=== PATIENT | female | born 1950 | race Caucasian/White ===

== ENCOUNTER 2020-06-19 16:01 | Inpatient (IN) | payer MEDICARE, BC ==
[~2020-06-19] VITALS: Ht 165.1 cm; Wt 114.4 kg
[2020-06-19] MEDS ORDERED: Z GUARD REMEDY PASTE 57 GM TUBE TOP PRN (20:15)
[2020-06-19 22:00] VITALS: BP 143/61
--- NOTE | 2020-06-19 22:00 | NUR ---
received a 69 yr old female from [facility] with an admitting diagnosis of Acute CHF, UTI, Obstructive Sleep Apnea and hypovent syndrome, morbid obesity. AAO x4 On continous O2 @ 2L via nasal cannula, pulse ox 98%. Lungs CTA. Hx of COPD, rheumatoid arthritis, pulmonary hypertension. VSS. BP 143/61 HR 77 Resp 18 Temp 99F Needs attended. Incontinent of urine x2 Kept clean and dry. No BM noted this shift. Allergic to levaquin, levothyroxine. Dr Pena called and aware of admission, told him to reconcile meds. He said ok. Skin intact, sacral are blanchable. Bilateral legs dry with scab noted on the right ankle. Denies any pain nor any discomfort.Will monitor patient.
[2020-06-19] MEDS ORDERED: CELE200C PO (22:41)
[2020-06-19] MEDS ORDERED: OXYC-132 PO (22:41)
[2020-06-19] MEDS ORDERED: PRED2.5T PO (22:41)
[2020-06-19] MEDS ORDERED: FURO40TA5 PO (22:41)
[2020-06-19] MEDS ORDERED: POTA10CA43 PO (22:41)
[2020-06-19] MEDS ORDERED: ALBU18HF2 IH (22:41)
[2020-06-19] MEDS ORDERED: SULF1TAB47 PO (22:41)
[2020-06-19] MEDS ORDERED: BUME2TAB7 PO (22:41)
[2020-06-20] MEDS ORDERED: ALBUTEROL SULFATE 8 GM HFA.AER.AD IH PRN (02:00)
[2020-06-20 04:10] VITALS: BP 143/68
--- NOTE | 2020-06-20 06:41 | NUR ---
End of shift notes: Slept well throughout the night. On continous O2 @ 2L via nasal cannula. VSS.Needs attended. Incontinent of urine x2. Kept clean and dry. No BM noted this shift. Will monitor patient.
[2020-06-20 08:00] VITALS: BP 135/58
[2020-06-20] MEDS ORDERED: ALBUTEROL SULFATE INH PRN (08:30)
[2020-06-20] MEDS: OXYCODONE/APAP 5-325 MG TABLET PO PRN ×2 (08:35→21:19)
[2020-06-20] MEDS: CELECOXIB 200 MG CAPSULE PO SCH ×2 (08:36→16:36)
[2020-06-20] MEDS: SULFAMETH/TRIMETH 800/160 MG TABLET PO SCH ×2 (08:37→21:15)
[2020-06-20] MEDS: BUMETANIDE 1 MG TABLET PO SCH ×2 (08:37→16:36)
[2020-06-20] MEDS: POTASSIUM CHLORIDE 10 MEQ TAB.PRT.SR PO SCH (08:37)
[2020-06-20] MEDS ORDERED: predniSONE 2.5 MG TABLET PO SCH (09:00)
[2020-06-20 14:10] LABS: BASOPHILS # (AUTO) 0.1 K/uL (0.0-8.0); BASOPHILS % (AUTO) 0.7 % (0.0-2.0); EOSINOPHILS # (AUTO) 0.2 K/uL (0.0-0.7); EOSINOPHILS % (AUTO) 1.2 % (0.0-7.0); HEMATOCRIT 37.7 % (31.2-41.9); HEMOGLOBIN 11.1 g/dL (10.9-14.3); LYMPHOCYTES # (AUTO) 0.6 K/uL (20.0-40.0); MEAN CORPUSCULAR HEMOGLOBIN 22.3 uug (24.7-32.8); MEAN CORPUSCULAR HGB CONC 30 g/dL (32.3-35.6); MEAN CORPUSCULAR VOLUME 75.5 fL (75.5-95.3); MONOCYTES # (AUTO) 1.1 K/uL (2.0-10.0); MONOCYTES % (AUTO) 7.5 % (0.0-11.0); NEUTROPHILS # (AUTO) 12.7 K/uL (1.8-8.9); NEUTROPHILS % (AUTO) 86.6 % (38.5-71.5); PLATELET COUNT (AUTO) 302 K/uL (179-408); RED BLOOD CELL COUNT(AUTO) 4.99 MIL/uL (3.63-4.92); WHITE BLOOD COUNT (AUTO) 14.6 K/uL (3.8-11.8)
[2020-06-20 14:19] LABS: BILIRUBIN,TOTAL 0.3 mg/dL (0.2-1.0); CREATININE 1.1 mg/dL (0.6-1.3); MAGNESIUM 2.1 mg/dL (1.8-2.4); PHOSPHOROUS 2.7 mg/dL (2.5-4.9); POTASSIUM 4.3 mmol/L (3.5-5.1)
[2020-06-20 16:01] VITALS: BP 125/87
[2020-06-20] MEDS: MAGNESIUM HYDROXIDE 30 ML LIQUID UDC PO PRN (16:36)
--- NOTE | 2020-06-20 18:28 | NUR ---
patient alert, oriented x4, verbally responsive, no sob, resp even nonlabored, skin warm and dry to touch, patient stated she is constipated, mom administered, will continue to monitor for effectiveness, no acute distress noted.
[2020-06-20 19:33] LABS: *BLOOD, URINE 2+ (NEGATIVE); *COLOR,URINE YELLOW (YELLOW); *KETONES,URINE NEGATIVE (NEGATIVE); *UROBILINOGEN,URINE 0.2 E.U./dl (NORMAL); LEUKOCYTE ESTERASE ,URINE 3+ (NEGATIVE); NITRITE, URINE NEGATIVE (NEGATIVE); UGLUCOSE NEGATIVE (NEGATIVE)
--- NOTE | 2020-06-20 19:33 | NUR ---
INTERDISCIPLINARY TEAM CONFERENCE
[2020-06-20 19:37] LABS: *CREATININE,URINE 116.7 mg/dL (30-125); *URINE TOTAL PROTEIN RANDOM 59.2 mg/dL (<150/24HR)
[2020-06-20 19:37] LABS: *BILIRUBIN,URIN 1+ (NEGATIVE)
[2020-06-20 19:40] LABS: *CLARITY,URINE CLOUDY (CLEAR); BACTERIA,URINE MODERATE /HPF (NONE SEEN); WBC,URINE TNTC /HPF (0-3)
[2020-06-20 19:41] LABS: SQUAMOUS EPITHELIAL CELL,UR MODERATE /HPF (NONE SEEN)
--- NOTE | 2020-06-20 19:53 | NUR ---
INDIVIDUALIZED PLAN OF CARE
[2020-06-20 20:00] VITALS: BP 146/70
--- NOTE | 2020-06-20 22:48 | NUR ---
Patient alert, oriented x4, verbally responsive, no SOB, respiration even nonlabored, skin warm and dry to touch, All due medication administered as ordered, patient tolerated PRN pain medication administered for lower leg an neck pain will continue to monitor for effectiveness, no acute distress noted. safety precautions observed all time. All belongings with in reach. Patient UTILIZES CPAP AT NIGHT and tolerating well.
[2020-06-21 04:00] VITALS: BP 124/76
--- NOTE | 2020-06-21 05:00 | NUR ---
Pain relieved no further c/o pain reported, Patient tolerated well CPAP all night. When RT assess patient, patient requested to take of CPAP Patient is on 2 lpm oxygen via Nasal Canula saturating 98%. No acute distress or discomfort Slept well through out night, will endorse accordingly to AM Shift.
--- NOTE | 2020-06-21 05:23 | NUR ---
Patient placed on CPAP per MD order @ 2130. Adjusted to patient comfort. Continuous pulse Ox at bedside. Nurse informed me of multiple episodes of desaturation. Witnessed low SpO2 and inadequate tidal volumes when in deep sleep. Adjusted once again to maintain adequate SpO2/ tidal volumes and minute ventilation. Patient vitals are now within normal range. Patient requested to come off of Bipap @ 0445. Placed on 2Lpm O2, tolerating well. Vitals within normal range. Will continue to monitor.
[2020-06-21 08:29] VITALS: BP 121/55
[2020-06-21] MEDS: POTASSIUM CHLORIDE 10 MEQ TAB.PRT.SR PO SCH (08:30)
[2020-06-21] MEDS: CELECOXIB 200 MG CAPSULE PO SCH ×2 (08:30→17:02)
[2020-06-21] MEDS: SULFAMETH/TRIMETH 800/160 MG TABLET PO SCH ×2 (08:30→21:31)
[2020-06-21] MEDS: BUMETANIDE 1 MG TABLET PO SCH ×2 (08:30→17:03)
[2020-06-21] MEDS: predniSONE 5 MG TABLET PO SCH (08:30)
[2020-06-21] MEDS: OXYCODONE/APAP 5-325 MG TABLET PO PRN ×2 (10:33→21:30)
--- NOTE | 2020-06-21 15:45 | NUR ---
patient is alert, oriented x4, no sob, resp even nonlabored, skin warm and dry to touch, patient legs noted with excessive dryness, wound care consult in place for further recommendations, right inner ankle dry scab, no nausea, no vomiting, no chills noted, no distress noted
[2020-06-21 16:00] VITALS: BP 134/71
[2020-06-21] MEDS: MAGNESIUM HYDROXIDE 30 ML LIQUID UDC PO PRN (17:15)
[2020-06-21 20:00] VITALS: BP 132/65
--- NOTE | 2020-06-21 23:00 | NUR ---
Per earlier code shah pt does not to be placed on CPAP for the NOC at this time. PATIENCE Brown is aware and notified at this time.
--- NOTE | 2020-06-21 23:00 | NUR ---
Patient alert, oriented x4, no sob, resp even nonlabored, skin warm and dry to touch, able to let her needs known to staff. Patient has order for CPAP for the NOC, Due to code Colon patient REQUESTED "NOT TO PUT HER ON CPAP", patient has no acute distress or c/o shortness of breath, RT notified will continue to monitor. All needs anticipated safety precautions observed all time. Frequent room visits done. Patient is calm and relax sleeping with no discomfort.
[2020-06-22 04:00] VITALS: BP 148/69
[2020-06-22 08:00] VITALS: BP 147/73
[2020-06-22] MEDS: SULFAMETH/TRIMETH 800/160 MG TABLET PO SCH ×2 (09:31→21:03)
[2020-06-22] MEDS: CELECOXIB 200 MG CAPSULE PO SCH ×2 (09:31→18:16)
[2020-06-22] MEDS: predniSONE 5 MG TABLET PO SCH (09:31)
[2020-06-22] MEDS: BUMETANIDE 1 MG TABLET PO SCH ×2 (09:31→18:16)
[2020-06-22] MEDS: POTASSIUM CHLORIDE 10 MEQ TAB.PRT.SR PO SCH (09:31)
--- NOTE | 2020-06-22 11:22 | NUR ---
WOUND CARE CONSULT: PT SITTING IN CHAIR AT THIS TIME. PT PRESENTS WITH ESCHAR TO RT MEDIAL ANKLE, PRESENT ON ADMISSION. RECOMMEND DPM CONSULT. DR LIRIANO NOTIFIED OF CONSULT REQUEST. RECOMMENDATIONS MADE FOR SKIN PROTECTION. PER PT REPORT AND ADMISSION PHOTOS, REDNESS/RASH TO ABD/GROIN FOLDS. RECOMMENDATIONS MADE FOR ANTIFUNGAL CREAM. DISCUSSED WITH NURSING STAFF. MD IN AGREEMENT WITH PLAN OF CARE.
[2020-06-22 15:47] VITALS: BP 115/70
[2020-06-22] MEDS: CLOTRIMAZOLE 1% CREAM 30 GM TUBE TOP SCH (18:17)
[2020-06-22 19:56] VITALS: BP 143/64
--- NOTE | 2020-06-22 23:58 | NUR ---
awake alert and oriented x4. Compliant with meds. No acute distress noted. VSS. Incontinent of bowel and bladder. Kept clean and dry. Will monitor patient. Bipap @hs. On continous pulse ox, 96% on 2L. Fall precautions maintained. Siderails up for safety.
[2020-06-23 04:50] VITALS: BP 113/50
--- NOTE | 2020-06-23 06:37 | NUR ---
End of shift notes: On continous bipap throughout the night. VSS. pulse ox 97%. No respiratory distress noted. Attended to needs. Incontinent of urine. Kept clean and dry.
[2020-06-23] MEDS ORDERED: UREA 20% CREAM 85 GM TUBE TP SCH (09:00)
[2020-06-23] MEDS: SULFAMETH/TRIMETH 800/160 MG TABLET PO SCH ×2 (09:41→20:13)
[2020-06-23] MEDS: POTASSIUM CHLORIDE 10 MEQ TAB.PRT.SR PO SCH (09:42)
[2020-06-23] MEDS: predniSONE 5 MG TABLET PO SCH (09:42)
[2020-06-23] MEDS: BUMETANIDE 1 MG TABLET PO SCH ×2 (09:42→16:50)
[2020-06-23] MEDS: CELECOXIB 200 MG CAPSULE PO SCH ×2 (09:42→16:50)
[2020-06-23] MEDS: CLOTRIMAZOLE 1% CREAM 30 GM TUBE TOP SCH ×2 (09:43→17:10)
[2020-06-23] MEDS: OXYCODONE/APAP 5-325 MG TABLET PO PRN (12:36)
[2020-06-23 16:10] VITALS: BP 111/65
--- NOTE | 2020-06-23 18:57 | NUR ---
Patient participated well with therapy. tolerated well. Continue clotrimazole treatment for groin abdominal fold and perineal redness. not in distress. will continue monitor
[2020-06-23 19:40] VITALS: BP 132/58
--- NOTE | 2020-06-23 20:39 | NUR ---
aaox4 watching TV upon rounds. On continous O2 @ 2L via nasal cannula. pulse ox 100%. No respiratory distress noted. Kept comfortable. VSS Attended to needs. Incontinent of bowel and bladder. Kept clean and dry. Denies any pain nor any discomfort. Uses bipap @ hs. Fall precautions maintained. Siderails up for safety. Call aguilar within reach.
[2020-06-24 04:20] VITALS: BP 126/51
[2020-06-24 08:00] VITALS: BP 128/56
[2020-06-24] MEDS: CELECOXIB 200 MG CAPSULE PO SCH ×2 (08:26→17:31)
[2020-06-24] MEDS: POTASSIUM CHLORIDE 10 MEQ TAB.PRT.SR PO SCH (08:26)
[2020-06-24] MEDS: predniSONE 5 MG TABLET PO SCH (08:26)
[2020-06-24] MEDS: SULFAMETH/TRIMETH 800/160 MG TABLET PO SCH (08:26)
[2020-06-24] MEDS: CLOTRIMAZOLE 1% CREAM 30 GM TUBE TOP SCH ×2 (08:27→17:31)
[2020-06-24] MEDS: OXYCODONE/APAP 5-325 MG TABLET PO PRN ×2 (08:27→20:27)
[2020-06-24] MEDS: BUMETANIDE 1 MG TABLET PO SCH ×2 (08:27→17:31)
[2020-06-24 16:26] VITALS: BP 113/68
[2020-06-24] MEDS: CEFEPIME HCL 1 G in IV DEXTROSE 5% 50 ML IV SCH ×2 (17:26→22:19)
[2020-06-24 20:04] VITALS: BP 156/70
--- NOTE | 2020-06-24 20:55 | NUR ---
Received pt sleeping comfortably. Aroused easily to verbal stimuli. Alert and oriented x4. On 2L O2 via NC, no acute distress noted. C/o 8/10 generalized pain, PRN pain med given as ordered. Safety measures maintained. Call light and personal items within reach. Will continue to monitor.
[2020-06-25 05:06] VITALS: BP 134/66
[2020-06-25] MEDS: CEFEPIME HCL 1 G in IV DEXTROSE 5% 50 ML IV SCH ×3 (06:00→22:10)
[2020-06-25 08:00] VITALS: BP 139/51
[2020-06-25] MEDS: BUMETANIDE 1 MG TABLET PO SCH ×2 (08:59→16:07)
[2020-06-25] MEDS: predniSONE 5 MG TABLET PO SCH (08:59)
[2020-06-25] MEDS: CELECOXIB 200 MG CAPSULE PO SCH ×2 (08:59→16:07)
[2020-06-25] MEDS: CLOTRIMAZOLE 1% CREAM 30 GM TUBE TOP SCH ×2 (08:59→16:08)
[2020-06-25] MEDS: POTASSIUM CHLORIDE 10 MEQ TAB.PRT.SR PO SCH (08:59)
[2020-06-25] MEDS: UREA 20% CREAM 85 GM TUBE TP SCH (09:02)
[2020-06-25] MEDS: OXYCODONE/APAP 5-325 MG TABLET PO PRN (09:02)
--- NOTE | 2020-06-25 10:30 | NUR ---
Received pt in bed, A&Ox4, able to verbalize needs. No acute distress, pt denies SOB. VSS at this time. Pt on 2 L NC, O2 saturation 95% at this time. Pt reported 8/10 pain on adult scale, PRN Percocet administered per order, per pt effective. Due medications given per order, no a/r noted. Safety measures and fall precautions in place. Call light and belongings within reach. Will continue to monitor.
[2020-06-25] MEDS: MAGNESIUM HYDROXIDE 30 ML LIQUID UDC PO PRN (13:02)
[2020-06-25 16:00] VITALS: BP 120/62
--- NOTE | 2020-06-25 19:05 | NUR ---
EOSS: Pt assisted safely back to bed from . Pt in no acute distress, denies pain/discomfort at this time. VSS. Pt saturating 98% on 2 L NC. Due medications given per order, no a/r noted. Safety measures and fall precautions maintained. Call light and belongings within reach. Will endorse care to operations supervisor 2nd shift nurse.
[2020-06-25 20:19] VITALS: BP 125/62
--- NOTE | 2020-06-25 23:00 | NUR ---
Received pt lying in bed. No acute distress noted. aaox4 VSS. Denies any pain. No SOB noted on continuous O2 @ 2L via nasal saturating @100%. All due mediation administered and tolerated well. Kept comfortable, clean and dry. Needs attended to. Wound care completed. Respiratory therapist assisted with the bipap @ hs. Safety measures maintained. Call light within reach. Will continue to monitor throughout the night.
[2020-06-26 04:30] VITALS: BP 127/57
[2020-06-26] MEDS: ACETAMINOPHEN 325 MG TABLET PO PRN (05:54)
[2020-06-26] MEDS: CEFEPIME HCL 1 G in IV DEXTROSE 5% 50 ML IV SCH ×3 (05:54→21:53)
--- NOTE | 2020-06-26 07:30 | NUR ---
Received aware and alert. No respiratory distress. Denies pain or sob. Bed is low and locked. Call light in reach. Will continue to monitor.
[2020-06-26 07:47] VITALS: BP 97/58
[2020-06-26] MEDS: BUMETANIDE 1 MG TABLET PO SCH ×2 (09:17→16:52)
[2020-06-26] MEDS: CELECOXIB 200 MG CAPSULE PO SCH ×2 (09:17→16:52)
[2020-06-26] MEDS: predniSONE 5 MG TABLET PO SCH (09:18)
[2020-06-26] MEDS: UREA 20% CREAM 85 GM TUBE TP SCH (09:18)
[2020-06-26] MEDS: POTASSIUM CHLORIDE 10 MEQ TAB.PRT.SR PO SCH (09:18)
--- NOTE | 2020-06-26 09:48 | NUR ---
During routine change, pt is noted with skin opening on the sacrococcyx area 2x0.7cm. Wound and surrounding area is red, no exudate or foul odor noted, tender to touch. Initial treatment cleanse with ns, pat dry, apply hydrogel and cover with mepilex done and tolerated by patient. Wound care consult and air loss mattress ordered. MD is aware. Will continue to monitor.
--- NOTE | 2020-06-26 11:48 | NUR ---
WOUND CARE CONSULT: PT PRESENTS WITH GLUTEAL CREASE MOISTURE ASSOCIATED SKIN DAMAGE. RECOMMENDATIONS MADE FOR SKIN PROTECTION. DISCUSSED WITH NURSING STAFF. FIRST STEP LOW AIRLOSS MATTRESS IS ON ORDER. IN AGREEMENT WITH PLAN OF CARE. Addendum: 06/26/20 at 1149 by ARPAN ORTEGA RN Amended: Links added.
[2020-06-26] MEDS: CLOTRIMAZOLE 1% CREAM 30 GM TUBE TOP SCH ×2 (12:05→16:52)
--- NOTE | 2020-06-26 18:56 | NUR ---
Alert and oriented. No respiratory distress on 2LPm via nc tolerated spo2 97%. Rehab tolerated no episode of desaturation. Due meds given and tolerated. No adverse reaction with Cefepime atb. Seen by Denise wound care consult with orders noted. Patient is aware and encourage to change positions q2 hrs when in bed. Patient verbalized she likes to sit on the chair during the day, risks and benefits explained pt was cooperative. Safety measures maintained. Needs attended. Kept comfortable.
[2020-06-26 20:57] VITALS: BP 112/54
[2020-06-27 04:55] VITALS: BP 138/69
[2020-06-27] MEDS: CEFEPIME HCL 1 G in IV DEXTROSE 5% 50 ML IV SCH ×3 (05:27→21:02)
--- NOTE | 2020-06-27 06:37 | NUR ---
No acute distress noted. aaox4 VSS. Denies any pain. No SOB noted on continuous O2 @ 2L via nasal saturating @100%. All due mediation administered and tolerated well. RFA IV infiltrated, discontinued. Established new IV LFA 22G, intact and patent. Infused Antibiotics, no adverse reactions. Kept comfortable, clean and dry. Needs attended to. Wound care completed. Pt stated she did not want to be on the bipap tonight, RT aware. Safety measures maintained. Call light within reach. Will continue to monitor throughout the night.
--- NOTE | 2020-06-27 07:26 | NUR ---
Awake and pleasant. Denies chest pain or sob. In no acute distress. 96% spo2 on 1.5Lpm via nc. No complaints at this time. Bed is low and locked. Call light in reach. Will continue to monitor.
[2020-06-27 07:33] VITALS: BP 155/66
[2020-06-27] MEDS: predniSONE 5 MG TABLET PO SCH (08:28)
[2020-06-27] MEDS: CLOTRIMAZOLE 1% CREAM 30 GM TUBE TOP SCH ×2 (08:28→16:44)
[2020-06-27] MEDS: POTASSIUM CHLORIDE 10 MEQ TAB.PRT.SR PO SCH (08:28)
[2020-06-27] MEDS: CELECOXIB 200 MG CAPSULE PO SCH ×2 (08:28→16:44)
[2020-06-27] MEDS: BUMETANIDE 1 MG TABLET PO SCH ×2 (08:28→16:44)
[2020-06-27] MEDS: UREA 20% CREAM 85 GM TUBE TP SCH (08:29)
--- NOTE | 2020-06-27 11:11 | NUR ---
Seen and examined by MYRIAM Wilson, made aware of red spots all over her back. Patient says it a little itchy, not painful. No open lesions. Will continue to monitor.
[2020-06-27] MEDS ORDERED: HYDROCORTISONE 1% CREAM 30 GM TUBE TP PRN (11:30)
[2020-06-27 14:49] VITALS: BP 130/70
--- NOTE | 2020-06-27 18:52 | NUR ---
Alert and oriented. On 1.5Lpm via nc tolerated spo2 96%. Denies chest pain or sob. In no acute distress. Due meds given and tolerated. Soft bm x1 made during this shift. Consented to midline insertion, risks and benefits explained. Needs attended. Safety measures maintained. Will endorse accordingly.
--- NOTE | 2020-06-27 20:02 | NUR ---
INTERDISCIPLINARY TEAM CONFERENCE
[2020-06-27 20:25] VITALS: BP 145/64
[2020-06-27 20:33] VITALS: BP 150/77
--- NOTE | 2020-06-27 20:34 | NUR ---
awake alert and oriented x4. On continous O2 @ 1.5 L via nasal cannula, pulse ox 98%. No respiratory distress noted. Uses bipap @ night. Patient on IV ABT for UTI. RUE midline inserted via aseptic technique by midline nurse. No ill effects noted from IV ABT. Attended to needs. Will monitor patient. Kept comfortable. Incontinent of bowel and bladder. No BM noted this shift. VSS.
[2020-06-28 04:00] VITALS: BP 124/50
[2020-06-28] MEDS: CEFEPIME HCL 1 G in IV DEXTROSE 5% 50 ML IV SCH ×3 (05:22→21:19)
--- NOTE | 2020-06-28 05:42 | NUR ---
End of shift notes: Uneventful night. Slept well most of the shift. Incontinent of urine x2 Kept clean and dry. No BM noted this shift. Will monitor patient. No acute distress noted. RUE midline flushed and patent. All needs attended and met.
[2020-06-28 06:10] LABS: BASOPHILS # (AUTO) 0.1 K/uL (0.0-8.0); BASOPHILS % (AUTO) 0.7 % (0.0-2.0); EOSINOPHILS # (AUTO) 0.5 K/uL (0.0-0.7); EOSINOPHILS % (AUTO) 3.4 % (0.0-7.0); HEMATOCRIT 33.3 % (31.2-41.9); HEMOGLOBIN 9.9 g/dL (10.9-14.3); LYMPHOCYTES # (AUTO) 1.2 K/uL (20.0-40.0); LYMPHOCYTES % (AUTO) 8.4 % (20.5-51.5); MEAN CORPUSCULAR HEMOGLOBIN 22.5 uug (24.7-32.8); MEAN CORPUSCULAR HGB CONC 30 g/dL (32.3-35.6); MEAN CORPUSCULAR VOLUME 75.9 fL (75.5-95.3); MONOCYTES # (AUTO) 1.5 K/uL (2.0-10.0); MONOCYTES % (AUTO) 10.9 % (0.0-11.0); NEUTROPHILS # (AUTO) 10.8 K/uL (1.8-8.9); NEUTROPHILS % (AUTO) 76.6 % (38.5-71.5); PLATELET COUNT (AUTO) 252 K/uL (179-408)
[2020-06-28 06:21] LABS: CREATININE 0.7 mg/dL (0.6-1.3); POTASSIUM 3.7 mmol/L (3.5-5.1)
[2020-06-28 07:51] VITALS: BP 135/49
[2020-06-28] MEDS: UREA 20% CREAM 85 GM TUBE TP SCH (08:52)
[2020-06-28] MEDS: CLOTRIMAZOLE 1% CREAM 30 GM TUBE TOP SCH ×2 (08:52→17:19)
[2020-06-28] MEDS: predniSONE 5 MG TABLET PO SCH (08:53)
[2020-06-28] MEDS: CELECOXIB 200 MG CAPSULE PO SCH ×2 (08:53→17:16)
[2020-06-28] MEDS: BUMETANIDE 1 MG TABLET PO SCH ×2 (08:53→17:16)
[2020-06-28] MEDS: POTASSIUM CHLORIDE 10 MEQ TAB.PRT.SR PO SCH (08:53)
[2020-06-28] MEDS: ACETAMINOPHEN 325 MG TABLET PO PRN (09:00)
[2020-06-28 15:23] VITALS: BP 115/56
[2020-06-28 20:18] VITALS: BP 122/53
--- NOTE | 2020-06-28 21:54 | NUR ---
awake alert and oriented x4 no acute distress noted. VSS. Needs attended. Compliant with care and meds. IV ABT given as scheduled via RUE midline. No complaints presented during shift. Incontinent of bowel and bladder. BM noted this shift. Kept clean and dry. Will monitor patient.
[2020-06-29 04:00] VITALS: BP_SYST 121; BP_SYST 124; BP_DIAS 50; BP_DIAS 63
[2020-06-29] MEDS: CEFEPIME HCL 1 G in IV DEXTROSE 5% 50 ML IV SCH ×3 (05:56→22:13)
[2020-06-29 08:00] VITALS: BP 142/52
[2020-06-29] MEDS: POTASSIUM CHLORIDE 10 MEQ TAB.PRT.SR PO SCH (09:46)
[2020-06-29] MEDS: CELECOXIB 200 MG CAPSULE PO SCH ×2 (09:46→17:50)
[2020-06-29] MEDS: predniSONE 5 MG TABLET PO SCH (09:46)
[2020-06-29] MEDS: BUMETANIDE 1 MG TABLET PO SCH ×2 (09:46→17:50)
[2020-06-29] MEDS: CLOTRIMAZOLE 1% CREAM 30 GM TUBE TOP SCH ×2 (09:54→17:50)
[2020-06-29] MEDS: UREA 20% CREAM 85 GM TUBE TP SCH (09:54)
[2020-06-29 16:00] VITALS: BP 117/65
[2020-06-29 20:00] VITALS: BP 108/51
--- NOTE | 2020-06-29 22:45 | NUR ---
Received patient AO X 4 resting in bed, no acute distress at room Air saturating 98% VSS. all needs attended, no episode of bowel moment, continue on IV ATB as scheduled right upper arm midline no adverse reaction noted, kept clean and dry. Safety measures observed all time, call light with in reach. Will continue Rehab plan of care.
[2020-06-30 04:00] VITALS: BP 104/57
--- NOTE | 2020-06-30 05:12 | NUR ---
Patient slept intermittently through out night, no c/o pain or acute distress noted on room air saturating 95%, bowel and bladder incontinent, kept clean and dry. continue on IV ATB as scheduled no adverse reaction noted. will endorse accordingly to AM shift.
[2020-06-30] MEDS: CEFEPIME HCL 1 G in IV DEXTROSE 5% 50 ML IV SCH ×3 (05:37→21:15)
[2020-06-30 08:00] VITALS: BP 121/59
[2020-06-30] MEDS: CELECOXIB 200 MG CAPSULE PO SCH ×2 (08:32→16:37)
[2020-06-30] MEDS: predniSONE 5 MG TABLET PO SCH (08:32)
[2020-06-30] MEDS: POTASSIUM CHLORIDE 10 MEQ TAB.PRT.SR PO SCH (08:32)
[2020-06-30] MEDS: BUMETANIDE 1 MG TABLET PO SCH ×2 (08:32→16:37)
[2020-06-30] MEDS: CLOTRIMAZOLE 1% CREAM 30 GM TUBE TOP SCH ×2 (08:38→16:43)
[2020-06-30] MEDS: UREA 20% CREAM 85 GM TUBE TP SCH (09:37)
[2020-06-30 14:39] VITALS: BP 111/55
--- NOTE | 2020-06-30 18:17 | NUR ---
Patient remains alert, oriented x 4, not in any form of distress, tolerating room air saturating at 97%. Compliant with medications and care. Midline on the right upper arm intact and patent. Patient participated with PT/OT. She denies any pain or discomfort. Sat on the chair during meal times. Assisted with her needs promptly. Call light and frequently used items placed within patient's reach. Safety measures maintained.
[2020-06-30 20:32] VITALS: BP 123/56
[2020-07-01 05:00] VITALS: BP 142/67
[2020-07-01] MEDS: CEFEPIME HCL 1 G in IV DEXTROSE 5% 50 ML IV SCH ×3 (05:27→21:36)
[2020-07-01 08:00] VITALS: BP 110/51
[2020-07-01] MEDS: CELECOXIB 200 MG CAPSULE PO SCH ×2 (09:30→16:52)
[2020-07-01] MEDS: BUMETANIDE 1 MG TABLET PO SCH ×2 (09:30→16:52)
[2020-07-01] MEDS: CLOTRIMAZOLE 1% CREAM 30 GM TUBE TOP SCH ×2 (09:30→16:56)
[2020-07-01] MEDS: POTASSIUM CHLORIDE 10 MEQ TAB.PRT.SR PO SCH (09:30)
[2020-07-01] MEDS: predniSONE 5 MG TABLET PO SCH (09:30)
[2020-07-01] MEDS: UREA 20% CREAM 85 GM TUBE TP SCH (09:31)
[2020-07-01] MEDS ORDERED: COVID-19 VACC,MRNA(MODERNA)/PF 100 MCG/0.5 ML VIAL IM ONE (11:30)
--- NOTE | 2020-07-01 15:00 | NUR ---
Order in place for pt to receive Moderna COVID vaccine, per pharmacy pending at this time. Per pt, this will be her 2nd dose, 1st dose was May 24. Will endorse.
[2020-07-01 15:58] VITALS: BP 125/55
[2020-07-01] MEDS: ACETAMINOPHEN 325 MG TABLET PO PRN (17:14)
--- NOTE | 2020-07-01 18:42 | NUR ---
End of shift note: Pt in bed, A&Ox4, able to verbalize needs, all needs met at this time. No acute distress. VSS. Pt O2 saturation 97% on RA. Pt reported generalized "achiness", per pt possibly from sitting in the chair today. PRN Tylenol given per order at pt's request. Pt assisted safely from chair to bed today using WC and platform walker with PT and CERTIFIED FLIGHT INSTRUCTOR. Pt participated with OT/PT. Due medications given per order, no a/r noted. KAYLI Midline patent and intact. Wound care administered per order. Pt's Rishi at bedside this afternoon, nursing care discussed with pt and . Safety measures and fall precautions maintained. Call light and belongings within reach. Will endorse care to insurance salesman nurse.
[2020-07-01 20:00] VITALS: BP 124/40
[2020-07-02] MEDS: CEFEPIME HCL 1 G in IV DEXTROSE 5% 50 ML IV SCH ×3 (05:50→21:04)
[2020-07-02 08:00] VITALS: BP 122/46
[2020-07-02] MEDS: CLOTRIMAZOLE 1% CREAM 30 GM TUBE TOP SCH ×2 (08:53→16:57)
[2020-07-02] MEDS: UREA 20% CREAM 85 GM TUBE TP SCH (08:53)
[2020-07-02] MEDS: BUMETANIDE 1 MG TABLET PO SCH ×2 (08:53→16:57)
[2020-07-02] MEDS: predniSONE 5 MG TABLET PO SCH (08:53)
[2020-07-02] MEDS: POTASSIUM CHLORIDE 10 MEQ TAB.PRT.SR PO SCH (08:53)
[2020-07-02] MEDS: CELECOXIB 200 MG CAPSULE PO SCH ×2 (09:00→17:00)
--- NOTE | 2020-07-02 09:49 | NUR ---
Pt in no acute distress, A&Ox4, all needs met at this time. Pt participating in PT, transferred safely from bed with physical therapist and VACUUM REPAIRER present. Pt kept clean and dry. Wound care administered per order. Due medications administered per order, no a/r noted. Pt refused Celebrex this am. Pt stated per her own veneer drier feeder to hold Celebrex the day of COVID vaccine. Followed up with Dept Director Millicent regarding COVID vaccine, per Millicent, will see if available. Notified pt. Continue to monitor.
[2020-07-02 16:55] VITALS: BP 122/56
[2020-07-02] MEDS: ACETAMINOPHEN 325 MG TABLET PO PRN (16:57)
--- NOTE | 2020-07-02 17:25 | NUR ---
Followed up with Roberto in Administration regarding Moderna COVID vaccine. Per Roberto, pt able to be scheduled for vaccine this Thursday, 07/04. However, per Supervisor Publications Production Grady, pt to be discharged home tomorrow, 07/03. Informed pt. Pt requested PRN Tylenol for generalized "achiness", administered per order, will monitor for effectiveness. Pt continued to decline scheduled Celebrex, see earlier documentation note.
--- NOTE | 2020-07-02 18:49 | NUR ---
Pt in bed, no acute distress. VSS. All needs met at this time.Pt to be discharged tomorrow, expressed excitement about going home. Pt assisted safely to sit on edge of bed for dinner, assisted back to recumbent position in bed after dinner. Safety ensured. Call light and belongings within reach. Will endorse care to manufacturing shift supervisor nurse.
[2020-07-02 20:00] VITALS: BP 112/56
[2020-07-03 04:00] VITALS: BP 115/54
[2020-07-03] MEDS: CEFEPIME HCL 1 G in IV DEXTROSE 5% 50 ML IV SCH ×2 (05:44→13:15)
--- NOTE | 2020-07-03 07:30 | NUR ---
Received patient awake in bed. AOx4. on room air. no signs of acute distress. with Right UA midline. Patient denies any pain/ discomfort at this time. Will continue to monitor.
[2020-07-03 08:00] VITALS: BP 120/54
[2020-07-03] MEDS: BUMETANIDE 1 MG TABLET PO SCH (09:28)
[2020-07-03] MEDS: POTASSIUM CHLORIDE 10 MEQ TAB.PRT.SR PO SCH (09:28)
[2020-07-03] MEDS: CELECOXIB 200 MG CAPSULE PO SCH (09:28)
[2020-07-03] MEDS: predniSONE 5 MG TABLET PO SCH (09:28)
[2020-07-03] MEDS: UREA 20% CREAM 85 GM TUBE TP SCH (09:28)
[2020-07-03] MEDS: CLOTRIMAZOLE 1% CREAM 30 GM TUBE TOP SCH (09:28)
[2020-07-03] MEDS: ACETAMINOPHEN 325 MG TABLET PO PRN (14:29)
[2020-07-03 15:44] VITALS: BP 134/62
--- NOTE | 2020-07-03 17:05 | NUR ---
Discharged patient to home with home health. Patient alert and oriented x 4. No signs of acute distress. On room air. With Right UA midline. Patient denies any pain/ discomfort at this time. Discharge instructions explained and given to patient, patient verbalized understanding. Belongings accounted for and patients belongings list signed. ID armband removed. Patient discharged with front wheel walker and wheelchair. Patient wheeled to hospital parking lot. Patient left with spouse via private car.
== END 2020-07-03 17:00 | disposition home health service (06) | DRG 292 ==
PROVIDERS: ADMIT Physical Medicine & Rehabilitation Pain Medicine; ATTEND Physical Medicine & Rehabilitation Pain Medicine
PROC: 5A09357 Assistance with Respiratory Ventilation, Less than 24 Consecutive Hours, Continuous Positive Airway Pressure (ICD-10-PCS; 2020-06-20)
PROC: 05HD33Z Insertion of Infusion Device into Right Cephalic Vein, Percutaneous Approach (ICD-10-PCS; principal; 2020-06-27)
DX: I11.0 Hypertensive heart disease with heart failure (principal); N39.0 Urinary tract infection, site not specified; I47.2 Ventricular tachycardia; L97.319 Non-pressure chronic ulcer of right ankle with unspecified severity; I50.33 Acute on chronic diastolic (congestive) heart failure; D64.9 Anemia, unspecified; G47.33 Obstructive sleep apnea (adult) (pediatric); I27.20 Pulmonary hypertension, unspecified; J44.9 Chronic obstructive pulmonary disease, unspecified; M06.9 Rheumatoid arthritis, unspecified; Z96.642 Presence of left artificial hip joint; Z87.891 Personal history of nicotine dependence; Z96.653 Presence of artificial knee joint, bilateral; B96.5 Pseudomonas (aeruginosa) (mallei) (pseudomallei) as the cause of diseases classified elsewhere; E66.01 Morbid (severe) obesity due to excess calories; I35.0 Nonrheumatic aortic (valve) stenosis; I87.2 Venous insufficiency (chronic) (peripheral); M20.41 Other hammer toe(s) (acquired), right foot; M20.42 Other hammer toe(s) (acquired), left foot; M21.42 Flat foot [pes planus] (acquired), left foot; M21.41 Flat foot [pes planus] (acquired), right foot; Z91.19 Patient's noncompliance with other medical treatment and regimen; R21 Rash and other nonspecific skin eruption; R26.2 Difficulty in walking, not elsewhere classified; Z88.1 Allergy status to other antibiotic agents; Z88.8 Allergy status to other drugs, medicaments and biological substances; S90.32XD Contusion of left foot, subsequent encounter; X58.XXXD Exposure to other specified factors, subsequent encounter
CPT/HCPCS: 36415; 71045; 83735; 84100; 84156; 84300; 85025; 87077; 87086; 94660; C1758; J0692; J3590; J7040; J7050; J7060; J7512

== ENCOUNTER 2020-12-14 14:53 | Inpatient (IN) | payer MEDICARE, BC ==
[~2020-12-14] VITALS: Ht 165.1 cm; Wt 122.5 kg
[~2020-12-14 14:53] MED LIST: ALBU18HF2 IH; BUME2TAB7 PO; CELE200C PO; FURO40TA5 PO; OXYC-132 PO; POTA10CA43 PO; PRED2.5T PO; SULF1TAB47 PO
[2020-12-14 18:00] VITALS: BP 125/48
--- NOTE | 2020-12-14 18:10 | NUR ---
received patient via ambulance. alert/orientedx4. denies discomfort. VS WNL. skin assessment done, photo taken in the chart. Dr Wu made aware of admission. Belongings list sign and done. denies pain at the time of arrival. will endorse to the next shift for continuity of care.
[2020-12-14] MEDS ORDERED: Z GUARD REMEDY PASTE 57 GM TUBE TOP PRN (18:30)
[2020-12-14] MEDS ORDERED: MULT-213 PO (19:44)
[2020-12-14] MEDS ORDERED: IPRA3AMP23 IH (19:44)
[2020-12-14] MEDS ORDERED: ONDA4TAB11 PO (19:44)
[2020-12-14] MEDS ORDERED: SULF500T8 PO (19:44)
[2020-12-14] MEDS ORDERED: PIPE3.379 IV (19:44)
[2020-12-14] MEDS ORDERED: PRED-170 (19:44)
[2020-12-14] MEDS ORDERED: FAMO20TA8 PO (19:44)
[2020-12-14] MEDS ORDERED: CHOL100034 (19:44)
[2020-12-14] MEDS ORDERED: POTA10CA43 PO (19:44)
[2020-12-14] MEDS ORDERED: UBID50TA3 PO (19:44)
[2020-12-14] MEDS ORDERED: VOLTAREN 1% GEL TOP (19:44)
[2020-12-14] MEDS ORDERED: FURO40TA5 PO (19:44)
[2020-12-14] MEDS ORDERED: ACET-73 PO (19:44)
[2020-12-14] MEDS ORDERED: ASCO-382 PO (19:44)
[2020-12-14] MEDS ORDERED: HYDR-3974 PO (19:44)
[2020-12-14] MEDS ORDERED: ZINC30TA2 PO (19:44)
[2020-12-14 20:27] VITALS: BP 125/64
[2020-12-14] MEDS ORDERED: ONDANSETRON HCL 4 MG TABLET PO PRN (20:30)
[2020-12-14] MEDS ORDERED: [UNRECOGNIZED DRUG - OTHER] TOP PRN (20:45)
[2020-12-14] MEDS ORDERED: VOLTAREN TOP PRN (20:45)
[2020-12-14] MEDS ORDERED: ALBUTEROL SULFATE 2.5 MG/3 ML NEBU NEB PRN ×2 (20:45→21:00)
[2020-12-14] MEDS: HYDROCODONE/APAP 5-325MG TABLET PO PRN (20:49)
[2020-12-14] MEDS ORDERED: IPRATROPIUM BROMIDE 0.5 MG/2.5 ML NEBU NEB PRN (21:00)
[2020-12-14] MEDS: PIPERACILLIN SODIUM/TAZOBACTAM 3.375 G in IV DEXTROSE 5% 100 ML IV SCH (21:02)
--- NOTE | 2020-12-14 22:17 | NUR ---
Received pt resting in bed. AAO x4. No acute distress noted. Notified Dr. Cordova of admission and for med recon with order to continue all meds. C/o 7/10 generalized pain, Coram PRN given. IV site, patent and intact. Pertinent assessment done. Oriented pt to room and equipment. Safety measures maintained. Call light and personal items within reach. Will continue to monitor.
[2020-12-15] MEDS: ACETAMINOPHEN ES 500 MG TABLET PO PRN (01:21)
[2020-12-15 04:15] VITALS: BP 103/50
[2020-12-15] MEDS: PIPERACILLIN SODIUM/TAZOBACTAM 3.375 G in IV DEXTROSE 5% 100 ML IV SCH ×3 (05:54→21:06)
[2020-12-15 08:20] VITALS: BP 122/60
[2020-12-15] MEDS: MULTIVIT, IRON, MIN NO. 8, FA TABLET PO SCH (08:54)
[2020-12-15] MEDS: ASCORBIC ACID 500 MG TABLET PO SCH (08:55)
[2020-12-15] MEDS: CHOLECALCIFEROL 1,000 UNIT TABLET PO SCH (08:55)
[2020-12-15] MEDS: FAMOTIDINE 20 MG TABLET PO SCH ×2 (08:55→16:02)
[2020-12-15] MEDS: FUROSEMIDE 40 MG TABLET PO SCH (08:55)
[2020-12-15] MEDS: ZINC SULFATE 220 MG CAPSULE PO SCH (08:55)
[2020-12-15] MEDS: POTASSIUM CHLORIDE 20 MEQ TAB.PRT.SR PO SCH (08:55)
[2020-12-15] MEDS: HYDROCODONE/APAP 5-325MG TABLET PO PRN (08:58)
[2020-12-15] MEDS: SULFASALAZINE 500 MG TABLET PO SCH (09:00)
[2020-12-15] MEDS ORDERED: [UNRECOGNIZED DRUG - OTHER] PO SCH (09:00)
[2020-12-15] MEDS ORDERED: COENZYME Q10 50 MG PO SCH (09:00)
[2020-12-15] MEDS ORDERED: Medication Not On Formulary EA (Multivitamins W-Minerals (Multivitamin With Minerals) 1 PO SCH (09:00)
[2020-12-15] MEDS ORDERED: UBIDECARENONE 50 MG PO SCH (09:00)
[2020-12-15] MEDS ORDERED: Medication Not On Formulary EA (Ascorbic Acid (Vitamin C TAB) 1,000 MG) PO SCH (09:00)
[2020-12-15] MEDS ORDERED: ZINC GLUCONATE PO SCH (09:00)
[2020-12-15] MEDS: predniSONE 5 MG TABLET PO SCH (09:07)
--- NOTE | 2020-12-15 09:49 | NUR ---
Received patient in bed, ao x 4, cooperative upon assessment. Colostomy bag intact and mcdowell catheter intact. Left arm IV site intact. All due meds given per MD order. All needs met in a timely manner. Patient went off the unit for therapy.
[2020-12-15] MEDS ORDERED: GLUC-199 PO (11:01)
[2020-12-15 11:39] VITALS: BP 107/56
--- NOTE | 2020-12-15 13:30 | NUR ---
Empty mcdowell catheter with 950cc urine output. Urine is minimal red in color. Will continue to monitor. Left IV site intact. Patient denies of any pain at this time. Seen by Dr. Angelo.
[2020-12-15 16:00] VITALS: BP 132/95
[2020-12-15] MEDS: HYDROCODONE/APAP 10-325 MG TABLET PO PRN (16:31)
--- NOTE | 2020-12-15 17:00 | NUR ---
urine is yellow in color , patient denies of any pain in the bladder area. Empty the mcdowell catheter the second time , it is 750cc urine output.
[2020-12-15 20:03] VITALS: BP 110/48
--- NOTE | 2020-12-15 21:31 | NUR ---
Received pt awake on bed with no respiratory distress noted. She is alert and oriented x4, able to make needs known. Colostomy bag and mcdowell catheter intact. FC draining with yellowish urine. Left arm IV site intact. Due medication given on time and tolerated well. Denies pain and discomfort at this time. All needs attended. Call light placed within reach. Will continue to monitor.
[2020-12-16 04:03] VITALS: BP 112/55
[2020-12-16] MEDS: PIPERACILLIN SODIUM/TAZOBACTAM 3.375 G in IV DEXTROSE 5% 100 ML IV SCH ×3 (05:02→22:17)
--- NOTE | 2020-12-16 06:31 | NUR ---
Pt slept throughout the night. Easily arousable for care, able to make needs known. Colostomy bag and mcdowell catheter intact. FC emptied out with reddish urine, flushed with NS. Left arm IV site intact. Due medication given on time and tolerated well. Denies pain and discomfort at this time. All needs attended. Call light placed within reach. Frequent visual checks done. Will endorse to next shift for continuity of care.
[2020-12-16 07:21] LABS: HEMATOCRIT 27.4 % (31.2-41.9); MEAN CORPUSCULAR HEMOGLOBIN 29.5 uug (24.7-32.8); MEAN CORPUSCULAR VOLUME 89.5 fL (75.5-95.3); PLATELET COUNT (AUTO) 380 K/uL (179-408)
[2020-12-16 07:30] VITALS: BP 118/43
[2020-12-16 07:33] LABS: CREATININE 0.9 mg/dL (0.6-1.3); MAGNESIUM 2.4 mg/dL (1.8-2.4); PHOSPHOROUS 3.4 mg/dL (2.5-4.9); POTASSIUM 3.2 mmol/L (3.5-5.1)
[2020-12-16] MEDS ORDERED: POTASSIUM CHLORIDE 20 MEQ TAB.PRT.SR PO ONE (09:00)
[2020-12-16] MEDS: SULFASALAZINE 500 MG TABLET PO SCH ×2 (09:00→09:35)
[2020-12-16] MEDS: MULTIVIT, IRON, MIN NO. 8, FA TABLET PO SCH (09:17)
[2020-12-16] MEDS: POTASSIUM CHLORIDE 20 MEQ TAB.PRT.SR PO SCH (09:18)
[2020-12-16] MEDS: CHOLECALCIFEROL 1,000 UNIT TABLET PO SCH (09:34)
[2020-12-16] MEDS: predniSONE 5 MG TABLET PO SCH (09:34)
[2020-12-16] MEDS: FAMOTIDINE 20 MG TABLET PO SCH ×2 (09:34→17:03)
[2020-12-16] MEDS: ASCORBIC ACID 500 MG TABLET PO SCH (09:34)
[2020-12-16] MEDS: FUROSEMIDE 40 MG TABLET PO SCH (09:34)
[2020-12-16] MEDS: ZINC SULFATE 220 MG CAPSULE PO SCH (09:35)
[2020-12-16 16:00] VITALS: BP 111/54
[2020-12-16] MEDS: ENSURE ENLIVE (VAN) 240 ML LIQUID PO SCH (17:07)
[2020-12-16 19:57] LABS: HEMATOCRIT 31.1 % (31.2-41.9); MEAN CORPUSCULAR HEMOGLOBIN 28.5 uug (24.7-32.8); MEAN CORPUSCULAR VOLUME 89.4 fL (75.5-95.3); PLATELET COUNT (AUTO) 372 K/uL (179-408)
[2020-12-16 20:05] VITALS: BP 134/55
--- NOTE | 2020-12-16 20:24 | NUR ---
Received pt resting in bed. AAO x4. No acute distress noted. Pt noted to have serosanguineous drainage on abdominal surgical site. Cleveland catheter draining well, hematuria noted. Notified Steve STERILIZATION TECHNICIAN with new orders. Urine and wound culture sent to the lab. Colostomy bag, patent and intact. Left arm IV site patent. Air mattress in place. Pt max assist in turning and repositioning. Safety measures maintained. Call light and personal items within reach. Will continue to monitor.
[2020-12-16] MEDS: HYDROCODONE/APAP 10-325 MG TABLET PO PRN (20:33)
[2020-12-16 20:35] LABS: *BILIRUBIN,URIN NEGATIVE (NEGATIVE); *BLOOD, URINE 3+ (NEGATIVE); *CLARITY,URINE SLIGHTLY CLOUDY (CLEAR); *COLOR,URINE RED (YELLOW); *KETONES,URINE NEGATIVE (NEGATIVE); *UROBILINOGEN,URINE 0.2 E.U./dl (NORMAL); LEUKOCYTE ESTERASE ,URINE TRACE (NEGATIVE); NITRITE, URINE NEGATIVE (NEGATIVE); PH,URINE 8.5 (5.0-8.0); UGLUCOSE NEGATIVE (NEGATIVE)
[2020-12-16 20:39] LABS: BACTERIA,URINE FEW /HPF (NONE SEEN); RBC,URINE TNTC /HPF (0-3); SQUAMOUS EPITHELIAL CELL,UR MODERATE /HPF (NONE SEEN)
[2020-12-16 20:41] LABS: *URINE TOTAL PROTEIN RANDOM 36.9 mg/dL (<150/24HR)
[2020-12-17 04:22] VITALS: BP 113/56
[2020-12-17] MEDS: PIPERACILLIN SODIUM/TAZOBACTAM 3.375 G in IV DEXTROSE 5% 100 ML IV SCH ×3 (05:38→21:12)
[2020-12-17 07:29] VITALS: BP 98/46
--- NOTE | 2020-12-17 07:30 | NUR ---
patient is alert/oriented x4, noted with hematuria. will continue to monitor.
[2020-12-17] MEDS: SULFASALAZINE 500 MG TABLET PO SCH ×2 (09:00→09:14)
[2020-12-17] MEDS: predniSONE 5 MG TABLET PO SCH (09:12)
[2020-12-17] MEDS: POTASSIUM CHLORIDE 20 MEQ TAB.PRT.SR PO SCH (09:12)
[2020-12-17] MEDS: MULTIVIT, IRON, MIN NO. 8, FA TABLET PO SCH (09:13)
[2020-12-17] MEDS: ZINC SULFATE 220 MG CAPSULE PO SCH (09:14)
[2020-12-17] MEDS: FUROSEMIDE 40 MG TABLET PO SCH (09:14)
[2020-12-17] MEDS: FAMOTIDINE 20 MG TABLET PO SCH ×2 (09:14→16:20)
[2020-12-17] MEDS: CHOLECALCIFEROL 1,000 UNIT TABLET PO SCH (09:14)
[2020-12-17] MEDS: ENSURE ENLIVE (VAN) 240 ML LIQUID PO SCH ×2 (09:15→16:21)
--- NOTE | 2020-12-17 09:20 | NUR ---
patient is still noted with dark red output to the urine bag. Steve, HAMMERER HELPER updated, stated to check when Mehis arrives. charge nurse made aware. Will continue to monitor. No concern form the patient at this time.
[2020-12-17] MEDS: ASCORBIC ACID 500 MG TABLET PO SCH (09:25)
--- NOTE | 2020-12-17 09:34 | NUR ---
SULFASALASINE 1000 MG no given patient refused stated I dont to[place] this medicine any more.
--- NOTE | 2020-12-17 10:52 | NUR ---
INDIVIDUALIZED PLAN OF CARE
--- NOTE | 2020-12-17 11:20 | NUR ---
WOUND CARE CONSULT: PT SEEN FOR ABDOMINAL SURGICAL INCISION WITH JAYSON, PRESENT ON ADMISSION. SOME REDNESS AND SEROUS DRAINAGE NOTED TO LOWER PORTION OF INCISION WITH SOME REDNESS TO SURROUNDING SKIN. REDNESS WAS PRESENT IN ADMISSION PHOTO. RECOMMEND FOLLOW UP WITH SURGEON. RN TO REACH SURGEON BY PHONE TODAY. DEFER TO SURGEON FOR SURGICAL SITE. MD IN AGREEMENT WITH PLAN OF CARE.
--- NOTE | 2020-12-17 11:27 | NUR ---
Patient was noted with redness, serous drainage to the surgical site to the lower area of the surgical site.Wound consult was done. Per Denise, patient needs defer to surgeon for surgical site. MYRIAM Wilson made aware.
[2020-12-17] MEDS: HYDROCODONE/APAP 10-325 MG TABLET PO PRN (13:00)
[2020-12-17] MEDS: VANCOMYCIN IV 2,000 MG in IV DEXTROSE 5% 500 ML IV SCH (13:02)
--- NOTE | 2020-12-17 13:56 | NUR ---
Noted with discomfort, per patient its coming from the bladder. Flushed catheter, noted with a few clots, draining urine, patient stated she felt relieved. Colostomy bag drained, soft, tolerated well. Given pain medication PRN x1. Addendum: 12/17/20 at 1708 by May KAE RN Dr. Bhat informed, stated he will see the patient. will continue to monitor.
[2020-12-17 15:14] VITALS: BP 144/56
[2020-12-17] MEDS: METHYLSULFONYLMETHANE PO SCH (16:19)
[2020-12-17] MEDS: GLUCOSAMINE PO SCH (16:19)
--- NOTE | 2020-12-17 18:48 | NUR ---
patient had prn pain medication x1. flushed catheter as ordered. Verbalized comfort after flushing. Dr Angelo order surgery consult for the incision site. Incision site, no pain per patient. Kept call light within reach. All meds given as ordered. Kept comfortable. Will endorse to the next shift as for continuity of care.
[2020-12-17 20:03] VITALS: BP 103/46
[2020-12-17] MEDS: OXYCODONE HCL 5 MG TABLET PO PRN (22:07)
[2020-12-17] MEDS: VOLTAREN GEL 1% TOP PRN (22:11)
--- NOTE | 2020-12-17 23:49 | NUR ---
Awake alert and oriented x4 watching TV. VSS taken and recorded. Patient had S/P right hemicolectomy (12/06) by Dr Cruz .On Fall precautions. Call aguilar within reach, Abdominal incision with emanuel intact. Needs attended. Cleveland catheter intact draining cranberry colored urine, flushed as needed. No blood clots noted. Will monitor patient. Left forearm INT flushed and patent, IV ABT given as scheduled. Medicated for pain as needed. VSS.
[2020-12-18 04:03] VITALS: BP 102/48
[2020-12-18] MEDS: PIPERACILLIN SODIUM/TAZOBACTAM 3.375 G in IV DEXTROSE 5% 100 ML IV SCH ×3 (05:34→21:22)
[2020-12-18 06:35] LABS: MEAN CORPUSCULAR HEMOGLOBIN 28.4 uug (24.7-32.8); MEAN CORPUSCULAR VOLUME 89.7 fL (75.5-95.3); PLATELET COUNT (AUTO) 338 K/uL (179-408)
[2020-12-18 07:30] VITALS: BP 109/51
[2020-12-18] MEDS: FAMOTIDINE 20 MG TABLET PO SCH ×2 (08:21→16:48)
[2020-12-18] MEDS: CHOLECALCIFEROL 1,000 UNIT TABLET PO SCH (08:21)
[2020-12-18] MEDS: POTASSIUM CHLORIDE 20 MEQ TAB.PRT.SR PO SCH (08:21)
[2020-12-18] MEDS: ASCORBIC ACID 500 MG TABLET PO SCH (08:21)
[2020-12-18] MEDS: METHYLSULFONYLMETHANE PO SCH (08:21)
[2020-12-18] MEDS: ZINC SULFATE 220 MG CAPSULE PO SCH (08:21)
[2020-12-18] MEDS: FUROSEMIDE 40 MG TABLET PO SCH (08:21)
[2020-12-18] MEDS: GLUCOSAMINE PO SCH (08:21)
[2020-12-18] MEDS: predniSONE 5 MG TABLET PO SCH (08:21)
[2020-12-18] MEDS: MULTIVIT, IRON, MIN NO. 8, FA TABLET PO SCH (08:21)
[2020-12-18] MEDS: ENSURE ENLIVE (VAN) 240 ML LIQUID PO SCH ×2 (08:22→16:48)
[2020-12-18] MEDS: SULFASALAZINE 500 MG TABLET PO SCH (08:22)
[2020-12-18] MEDS: VANCOMYCIN IV 2,000 MG in IV DEXTROSE 5% 500 ML IV SCH (12:21)
--- NOTE | 2020-12-18 12:46 | NUR ---
INDIVIDUALIZED PLAN OF CARE
[2020-12-18] MEDS: VOLTAREN GEL 1% TOP PRN (14:43)
[2020-12-18 15:58] VITALS: BP 133/67
--- NOTE | 2020-12-18 19:00 | NUR ---
NO CONCERN IDENTIFIED DURING THE SHIFT. INCISION SITE, INTACT, MINIMAL DRAIN NOTED. URINE OUTPUT, NO BLOOD NOTED AT THIS TIME. ALL DUE MEDS GIVEN ORDERED. ASSISTED PT WITH TRANSFER TO THE . PATIENT TOLERATED THE TRANSFER WELL. WILL CONTINUE PLAN OF CARE.
--- NOTE | 2020-12-18 19:14 | NUR ---
PT awake alert and oriented x4 watching TV. VSS taken and recorded. Patient had S/P right hemicolectomy (12/06) by Dr Cruz .On Fall precautions. Call light within reach, Abdominal incision with emanuel intact. Needs attended. Cleveland catheter intact draining yellow colored urine, . No hematuria noted during the shift. Will monitor patient. Left forearm IV site flushed and patent, IV ABT given as scheduled. No C/O of pain or acute distress noted ambulated with FWW and PT sat on W/C for an hour tolerated well.
[2020-12-18 19:49] VITALS: BP 138/43
[2020-12-18] MEDS: OXYCODONE HCL 5 MG TABLET PO PRN (21:43)
[2020-12-19 04:20] VITALS: BP 116/52
[2020-12-19] MEDS: PIPERACILLIN SODIUM/TAZOBACTAM 3.375 G in IV DEXTROSE 5% 100 ML IV SCH ×3 (05:09→21:53)
[2020-12-19 07:34] LABS: POTASSIUM 2.9 mmol/L (3.5-5.1)
[2020-12-19 07:56] VITALS: BP 125/48
[2020-12-19] MEDS: ENSURE ENLIVE (VAN) 240 ML LIQUID PO SCH ×2 (08:16→17:31)
[2020-12-19] MEDS: FAMOTIDINE 20 MG TABLET PO SCH ×2 (08:27→16:11)
[2020-12-19] MEDS: CHOLECALCIFEROL 1,000 UNIT TABLET PO SCH (08:27)
[2020-12-19] MEDS: predniSONE 5 MG TABLET PO SCH (08:27)
[2020-12-19] MEDS: ASCORBIC ACID 500 MG TABLET PO SCH (08:27)
[2020-12-19] MEDS: GLUCOSAMINE PO SCH (08:28)
[2020-12-19] MEDS: FUROSEMIDE 40 MG TABLET PO SCH (08:28)
[2020-12-19] MEDS: MULTIVIT, IRON, MIN NO. 8, FA TABLET PO SCH (08:28)
[2020-12-19] MEDS: METHYLSULFONYLMETHANE PO SCH (08:28)
[2020-12-19] MEDS: ZINC SULFATE 220 MG CAPSULE PO SCH (08:28)
[2020-12-19] MEDS: SULFASALAZINE 500 MG TABLET PO SCH ×2 (08:28→08:31)
[2020-12-19] MEDS: POTASSIUM CHLORIDE 20 MEQ TAB.PRT.SR PO SCH (08:28)
--- NOTE | 2020-12-19 08:30 | NUR ---
NSG: Received pt awake lying on bed with no respiratory distress noted. alert and oriented x4, able to make needs known. Colostomy bag and mcdowell catheter intact. FC draining with yellowish urine. Left arm IV site intact. Denies pain and discomfort at this time. All needs attended. Call light placed within reach. Will continue to monitor.
[2020-12-19] MEDS: POTASSIUM CHLORIDE 10 MEQ TAB.PRT.SR PO SCH ×3 (11:35→15:20)
--- NOTE | 2020-12-19 14:48 | NUR ---
INTERDISCIPLINARY TEAM CONFERENCE
[2020-12-19 16:00] VITALS: BP 103/50
--- NOTE | 2020-12-19 18:51 | NUR ---
NSG: REMAIN STABLE THROUGH THE SHIFT. NO CONCERN IDENTIFIED DURING THE SHIFT. INCISION SITE, INTACT.F/C PATENT AND YELLOW URINE OUTPUT NOTED, NO BLOOD NOTED AT THIS TIME. ALL DUE MEDS GIVEN ORDERED. ASSISTED PT WITH TRANSFER TO THE . PATIENT TOLERATED THE TRANSFER WELL. WILL CONTINUE PLAN OF CARE.
[2020-12-19 20:00] VITALS: BP 102/47
[2020-12-19] MEDS: OXYCODONE HCL 5 MG TABLET PO PRN (22:15)
[2020-12-19] MEDS: VOLTAREN GEL 1% TOP PRN (22:21)
[2020-12-20 04:00] VITALS: BP 103/40
--- NOTE | 2020-12-20 04:53 | NUR ---
Patient complaint of bladder discomforts. Urine pale pink with few blood clots noted, irrigated with NSS as ordered to declogged catheter. Patient tolerated procedure well. Cleveland catheter tubing/bag replaced due to old blood clots adhere in the tubing.
[2020-12-20] MEDS: PIPERACILLIN SODIUM/TAZOBACTAM 3.375 G in IV DEXTROSE 5% 100 ML IV SCH ×3 (05:20→22:01)
--- NOTE | 2020-12-20 06:40 | NUR ---
Continue complaining of bladder discomforts despite Tylenol ES given and irrigating/flushing mcdowell catheter. Patient agreed with the plan to removed and reinsert a new mcdowell. Blood clot embedded at the tip of the mcdowell and more blot clots came out followed by gushing out cranberry colored urine, as soon as catheter was removed. FR 18x10 ml mcdowell catheter inserted aseptically and good amount of urine flowing through gravity. Patient so relieved and very happy. Good varinder care/skin care rendered after.
[2020-12-20 08:00] VITALS: BP 127/51
[2020-12-20] MEDS: ENSURE ENLIVE (VAN) 240 ML LIQUID PO SCH ×2 (08:43→13:04)
[2020-12-20] MEDS: ZINC SULFATE 220 MG CAPSULE PO SCH (08:43)
[2020-12-20] MEDS: SULFASALAZINE 500 MG TABLET PO SCH (08:43)
[2020-12-20] MEDS: ASCORBIC ACID 500 MG TABLET PO SCH (08:44)
[2020-12-20] MEDS: POTASSIUM CHLORIDE 20 MEQ TAB.PRT.SR PO SCH (08:44)
[2020-12-20] MEDS: CHOLECALCIFEROL 1,000 UNIT TABLET PO SCH (08:44)
[2020-12-20] MEDS: MULTIVIT, IRON, MIN NO. 8, FA TABLET PO SCH (08:44)
[2020-12-20] MEDS: predniSONE 5 MG TABLET PO SCH (08:45)
[2020-12-20] MEDS: FAMOTIDINE 20 MG TABLET PO SCH ×2 (08:45→17:53)
[2020-12-20] MEDS: FUROSEMIDE 40 MG TABLET PO SCH (08:45)
[2020-12-20] MEDS: OXYCODONE HCL 5 MG TABLET PO PRN ×2 (08:46→21:29)
[2020-12-20] MEDS: GLUCOSAMINE PO SCH (10:27)
[2020-12-20] MEDS: METHYLSULFONYLMETHANE PO SCH (10:27)
--- NOTE | 2020-12-20 11:04 | NUR ---
Patient alert and oriented x4. On room air. Vital signs stable. Per patient, Computer Systems Administrator d/c Sulfasalazine due to surgery. C/O abdominal pain and spasms relieved by Oxycodone. Cleveland catheter irrigated with NS. Stringy blood clot removed, followed by output of cranberry colored urine. Colostomy intact. Safety precautions in place. Will continue to monitor
[2020-12-20 15:33] VITALS: BP 113/57
--- NOTE | 2020-12-20 19:00 | NUR ---
18 fr. Cleveland catheter reinserted using aseptic technique. Balloon inflated with 10cc. Catheter irrigated. No clots noted. No urine draining into collection bag. Hematuria noted on william. Dr. Bhat made aware. Keep catheter in place until no blood clots noted for 24 hours per MD. Will endorse to gate cutter nurse
[2020-12-20 20:00] VITALS: BP 110/51
[2020-12-20] MEDS: VOLTAREN GEL 1% TOP PRN (21:31)
[2020-12-21 04:00] VITALS: BP 109/50
[2020-12-21] MEDS: PIPERACILLIN SODIUM/TAZOBACTAM 3.375 G in IV DEXTROSE 5% 100 ML IV SCH ×3 (05:38→21:21)
[2020-12-21 08:00] VITALS: BP 127/43
[2020-12-21] MEDS: SULFASALAZINE 500 MG TABLET PO SCH ×2 (08:24→08:48)
[2020-12-21] MEDS: ENSURE ENLIVE (VAN) 240 ML LIQUID PO SCH (08:25)
[2020-12-21] MEDS: POTASSIUM CHLORIDE 20 MEQ TAB.PRT.SR PO SCH (08:25)
[2020-12-21] MEDS: MULTIVIT, IRON, MIN NO. 8, FA TABLET PO SCH (08:26)
[2020-12-21] MEDS: FAMOTIDINE 20 MG TABLET PO SCH ×2 (08:26→17:17)
[2020-12-21] MEDS: ASCORBIC ACID 500 MG TABLET PO SCH (08:26)
[2020-12-21] MEDS: FUROSEMIDE 40 MG TABLET PO SCH (08:26)
[2020-12-21] MEDS: ZINC SULFATE 220 MG CAPSULE PO SCH (08:27)
[2020-12-21] MEDS: METHYLSULFONYLMETHANE PO SCH (08:27)
[2020-12-21] MEDS: CHOLECALCIFEROL 1,000 UNIT TABLET PO SCH (08:27)
[2020-12-21] MEDS: GLUCOSAMINE PO SCH (08:27)
[2020-12-21] MEDS: predniSONE 5 MG TABLET PO SCH (08:29)
[2020-12-21 15:20] VITALS: BP 127/43
[2020-12-21 20:00] VITALS: BP 92/42
[2020-12-21] MEDS: OXYCODONE HCL 5 MG TABLET PO PRN (22:42)
--- NOTE | 2020-12-22 03:47 | NUR ---
AAOx4 Admitted for right hemicolectomy. Colostomy intact draining soft brownish stool. Cleveland catheter intact draining dark tony urine. No clots noted, irrigated with saline flush. Needs attended. Medicated for pain as needed. Relief obtained. Kept comfortable. VSS. Will monitor.
[2020-12-22 04:00] VITALS: BP 116/56
[2020-12-22] MEDS: PIPERACILLIN SODIUM/TAZOBACTAM 3.375 G in IV DEXTROSE 5% 100 ML IV SCH ×2 (05:25→13:25)
[2020-12-22 07:27] LABS: HEMATOCRIT 28.5 % (31.2-41.9); MEAN CORPUSCULAR HEMOGLOBIN 28.9 uug (24.7-32.8); MEAN CORPUSCULAR VOLUME 89.2 fL (75.5-95.3); PLATELET COUNT (AUTO) 351 K/uL (179-408)
[2020-12-22 07:42] LABS: NEUTROPHILS % (MANUAL) 0 % (42-75)
[2020-12-22 07:44] VITALS: BP 111/52
[2020-12-22 07:45] LABS: THYROID STIMULATING HORMONE 1.123 mIU/mL (0.358-3.740)
[2020-12-22 08:15] LABS: BILIRUBIN,TOTAL 0.3 mg/dL (0.2-1.0); MAGNESIUM 2.3 mg/dL (1.8-2.4); PHOSPHOROUS 3.1 mg/dL (2.5-4.9); POTASSIUM 3.2 mmol/L (3.5-5.1); TOTAL PROTEIN, SERUM 6.7 g/dL (6.4-8.2)
[2020-12-22] MEDS: SULFASALAZINE 500 MG TABLET PO SCH (09:00)
[2020-12-22] MEDS: CHOLECALCIFEROL 1,000 UNIT TABLET PO SCH (09:17)
[2020-12-22] MEDS: MULTIVIT, IRON, MIN NO. 8, FA TABLET PO SCH (09:17)
[2020-12-22] MEDS: FAMOTIDINE 20 MG TABLET PO SCH ×2 (09:17→17:47)
[2020-12-22] MEDS: ASCORBIC ACID 500 MG TABLET PO SCH (09:17)
[2020-12-22] MEDS: FUROSEMIDE 40 MG TABLET PO SCH (09:17)
[2020-12-22] MEDS: predniSONE 5 MG TABLET PO SCH (09:17)
[2020-12-22] MEDS: ZINC SULFATE 220 MG CAPSULE PO SCH (09:18)
[2020-12-22] MEDS: METHYLSULFONYLMETHANE PO SCH (09:18)
[2020-12-22] MEDS: GLUCOSAMINE PO SCH (09:18)
[2020-12-22] MEDS: ENSURE ENLIVE (VAN) 240 ML LIQUID PO SCH (09:20)
[2020-12-22] MEDS: POTASSIUM CHLORIDE 20 MEQ TAB.PRT.SR PO SCH (09:24)
[2020-12-22] MEDS ORDERED: POTASSIUM CHLORIDE 20 MEQ TAB.PRT.SR PO ONE (10:45)
[2020-12-22 15:39] VITALS: BP 110/59
--- NOTE | 2020-12-22 16:02 | NUR ---
NOTED LARGE AMOUNT OF DARK COLOR LIQUID IN DIAPER BYPASSING F/C . ALSO NOTED DARK TEA COLOR URINE IN F/C. MINIMAL AMOUNT OF SMALL CLOTS NOTED. MOD AMOUNT OF SEROUS DRAINAGE NOTED ON A.B.D PAD FROM ABDOMINAL INCISION
[2020-12-22 20:27] VITALS: BP 123/48
[2020-12-22] MEDS ORDERED: MICAFUNGIN SODIUM 100 MG in IV NORMAL SALINE 100 ML IV SCH (21:00)
[2020-12-22] MEDS ORDERED: MEROPENEM 1GM/NS 100ML IVPB **ER PYXIS ONLY IV ONE (21:43)
[2020-12-22] MEDS ORDERED: MEROPENEM 1 G VIAL IV ONE (21:43)
[2020-12-22] MEDS: MEROPENEM 1 G in IV NORMAL SALINE 100 ML IV SCH (21:48)
[2020-12-22] MEDS ORDERED: MEROPENEM 0.5 G in IV NORMAL SALINE 50 ML IV SCH (22:00)
[2020-12-22] MEDS: OXYCODONE HCL 5 MG TABLET PO PRN (22:31)
--- NOTE | 2020-12-23 00:30 | NUR ---
Received pt awake on bed with no respiratory distress noted, on room air saturating at 98%. She is alert and oriented x4 able to make needs known. Colostomy bag intact. FC patent and draining well, noted with tea colored urine, minimal clots. Denies pain and discomfort on abdomen. Medicated pain x1 for low back pain, noted to be effective. RAMSES midline patent and intact. New order of Merrem IV given on time and tolerated well. Informed Montilla RN CARDIOVASCULAR that new order Micafungin Sodium not available, ok to start in the morning once pharmacy is open. All needs attended. Call light placed within reach. Will continue to monitor.
[2020-12-23 04:20] VITALS: BP 98/48
[2020-12-23] MEDS: MEROPENEM 1 G in IV NORMAL SALINE 100 ML IV SCH ×3 (05:30→21:08)
--- NOTE | 2020-12-23 07:00 | NUR ---
Pt slept throughout the night, easily arousable for care. Denies pain and discomfort at this time. FC noted with tea colored urine, minimal clots. Minimal leakage around FC also noted. All needs attended. Call light placed within reach. Frequent visual checks done. Will endorse to next shift for continuity of care.
[2020-12-23 07:26] LABS: POTASSIUM 3.2 mmol/L (3.5-5.1)
[2020-12-23 08:09] VITALS: BP 109/46
[2020-12-23] MEDS: MICAFUNGIN SODIUM 100 MG in IV NORMAL SALINE 100 ML IV SCH (08:42)
[2020-12-23] MEDS: predniSONE 5 MG TABLET PO SCH (08:43)
[2020-12-23] MEDS: POTASSIUM CHLORIDE 20 MEQ TAB.PRT.SR PO SCH (08:43)
[2020-12-23] MEDS: ASCORBIC ACID 500 MG TABLET PO SCH (08:43)
[2020-12-23] MEDS: MULTIVIT, IRON, MIN NO. 8, FA TABLET PO SCH (08:43)
[2020-12-23] MEDS: FAMOTIDINE 20 MG TABLET PO SCH ×2 (08:43→17:57)
[2020-12-23] MEDS: ZINC SULFATE 220 MG CAPSULE PO SCH (08:44)
[2020-12-23] MEDS: FUROSEMIDE 40 MG TABLET PO SCH (08:44)
[2020-12-23] MEDS: CHOLECALCIFEROL 1,000 UNIT TABLET PO SCH (08:44)
[2020-12-23] MEDS: METHYLSULFONYLMETHANE PO SCH (08:45)
[2020-12-23] MEDS: SULFASALAZINE 500 MG TABLET PO SCH ×2 (08:45→09:00)
[2020-12-23] MEDS: GLUCOSAMINE PO SCH (08:45)
[2020-12-23] MEDS: ENSURE ENLIVE (VAN) 240 ML LIQUID PO SCH (08:46)
[2020-12-23] MEDS ORDERED: POTASSIUM CHLORIDE 20 MEQ TAB.PRT.SR PO ONE (10:15)
[2020-12-23 16:15] VITALS: BP 118/52
--- NOTE | 2020-12-23 18:00 | NUR ---
Patient remains alert, oriented x 4, not in any form of distress, on room air. She denies any pain or discomfort. Left upper arm midline intact and patent. Cleveland catheter in place and patent, draining dark colored urine with small clots and leakage noted at the urethral meatal area. Informed Dr. Lindsey about the leakage and MD said to follow up with Dr. Riley Urologist tomorrow. Will continue to monitor and will endorse accordingly.
[2020-12-23 20:21] VITALS: BP 117/43
--- NOTE | 2020-12-23 21:09 | NUR ---
UA collected and sent to lab as ordered.
[2020-12-23 21:38] LABS: *BILIRUBIN,URIN 3+ (NEGATIVE); *BLOOD, URINE 3+ (NEGATIVE); *CLARITY,URINE CLOUDY (CLEAR); *COLOR,URINE RED (YELLOW); *KETONES,URINE 1+ (NEGATIVE); LEUKOCYTE ESTERASE ,URINE 3+ (NEGATIVE); NITRITE, URINE NEGATIVE (NEGATIVE); UGLUCOSE NEGATIVE (NEGATIVE)
[2020-12-23 22:53] LABS: BACTERIA,URINE MODERATE /HPF (NONE SEEN); RBC,URINE TNTC /HPF (0-3); SQUAMOUS EPITHELIAL CELL,UR FEW /HPF (NONE SEEN); WBC,URINE 20-50 /HPF (0-3)
[2020-12-23] MEDS: OXYCODONE HCL 5 MG TABLET PO PRN (23:08)
--- NOTE | 2020-12-24 00:24 | NUR ---
Started on Levaquin IVPB ATB as ordered without s/s of adverse reaction noted. Addendum: 12/24/20 at 0026 by JAN LONG RN Wrong patient.
[2020-12-24 04:36] VITALS: BP 142/49
[2020-12-24] MEDS: MEROPENEM 1 G in IV NORMAL SALINE 100 ML IV SCH ×3 (05:38→21:22)
[2020-12-24 07:30] VITALS: BP 114/49
--- NOTE | 2020-12-24 07:30 | NUR ---
RECEIVED PATIENT ALERT/ORIENTED X4, DENIES PAIN, NOTED WITH DARK RED OUTPUT IN THE URINE BAG, FLUSHED FC ORDERED. PERINEAL CARE DONE. COLOSTOMY, INTACT. IV INTACT, FLUSHED MIDLINE. DRESSING CHANGED TO THE ABDOMINAL AREA. NO OTHER CONCERN IDENTIFIED. KEPT CALL LIGHT WITHIN REACH. WILL CONTINUE TO MONITOR.
[2020-12-24] MEDS: MICAFUNGIN SODIUM 100 MG in IV NORMAL SALINE 100 ML IV SCH (08:01)
[2020-12-24] MEDS: SULFASALAZINE 500 MG TABLET PO SCH (08:01)
[2020-12-24] MEDS: CHOLECALCIFEROL 1,000 UNIT TABLET PO SCH (08:02)
[2020-12-24] MEDS: METHYLSULFONYLMETHANE PO SCH (08:02)
[2020-12-24] MEDS: ENSURE ENLIVE (VAN) 240 ML LIQUID PO SCH (08:02)
[2020-12-24] MEDS: ASCORBIC ACID 500 MG TABLET PO SCH (08:02)
[2020-12-24] MEDS: MULTIVIT, IRON, MIN NO. 8, FA TABLET PO SCH (08:02)
[2020-12-24] MEDS: FUROSEMIDE 40 MG TABLET PO SCH (08:02)
[2020-12-24] MEDS: GLUCOSAMINE PO SCH (08:02)
[2020-12-24] MEDS: POTASSIUM CHLORIDE 20 MEQ TAB.PRT.SR PO SCH (08:03)
[2020-12-24] MEDS: ZINC SULFATE 220 MG CAPSULE PO SCH (08:03)
[2020-12-24] MEDS: FAMOTIDINE 20 MG TABLET PO SCH ×2 (08:03→16:36)
[2020-12-24] MEDS: POTASSIUM CHLORIDE 10 MEQ TAB.PRT.SR PO SCH (08:03)
[2020-12-24] MEDS: predniSONE 5 MG TABLET PO SCH (08:04)
[2020-12-24 15:58] VITALS: BP 108/54
--- NOTE | 2020-12-24 18:49 | NUR ---
NO OTHER CONCERN IDENTIFIED DURING THE SHIFT. FLUSHED FC PRN ORDERED, STILL NOTED WITH HEMATURIA. MD AWARE. KEPT CALL LIGHT WITHIN REACH. NO OTHER CONCERNS IDENTIFIED. DENIES PAIN. ALL NEEDS ATTENDED. ALL DUE MEDS GIVEN ORDERED. WILL ENDORSE TO THE NEXT SHIFT FOR CONTINUITY OF CARE.
[2020-12-24 20:00] VITALS: BP 110/50
[2020-12-24] MEDS: OXYCODONE HCL 5 MG TABLET PO PRN (21:36)
[2020-12-25 04:00] VITALS: BP 125/60
[2020-12-25] MEDS: MEROPENEM 1 G in IV NORMAL SALINE 100 ML IV SCH (05:14)
--- NOTE | 2020-12-25 06:35 | NUR ---
Slept well. Medicated once for pain with relief. No further complaint presented all night. F/C intact with some leaking and bloody red output, irrigated every 6 hours as needed. All needs attended and met. Vital signs stable. Continue care as planned.
--- NOTE | 2020-12-25 07:00 | NUR ---
RECEIVED PATIENT ALERT/ORIENTEDX4, DENIES DISCOMFORT. NO PAIN NOTED. KEPT CALL LIGHT WITHIN REACH. NOTED WITH DARK RED OUTPUT TO THE URINE BAG. KEPT CALL LIGHT WITHIN REACH. WILL CONTINUE TO MONITOR.
[2020-12-25 07:40] VITALS: BP 117/53
[2020-12-25] MEDS: SULFASALAZINE 500 MG TABLET PO SCH (09:00)
[2020-12-25] MEDS: FUROSEMIDE 40 MG TABLET PO SCH (09:41)
[2020-12-25] MEDS: CHOLECALCIFEROL 1,000 UNIT TABLET PO SCH (09:41)
[2020-12-25] MEDS: ASCORBIC ACID 500 MG TABLET PO SCH (09:41)
[2020-12-25] MEDS: GLUCOSAMINE PO SCH (09:41)
[2020-12-25] MEDS: METHYLSULFONYLMETHANE PO SCH (09:41)
[2020-12-25] MEDS: POTASSIUM CHLORIDE 20 MEQ TAB.PRT.SR PO SCH (09:41)
[2020-12-25] MEDS: ZINC SULFATE 220 MG CAPSULE PO SCH (09:41)
[2020-12-25] MEDS: MULTIVIT, IRON, MIN NO. 8, FA TABLET PO SCH (09:41)
[2020-12-25] MEDS: POTASSIUM CHLORIDE 10 MEQ TAB.PRT.SR PO SCH (09:41)
[2020-12-25] MEDS: predniSONE 5 MG TABLET PO SCH (09:41)
[2020-12-25] MEDS: FAMOTIDINE 20 MG TABLET PO SCH ×2 (09:41→16:55)
[2020-12-25] MEDS: ENSURE ENLIVE (VAN) 240 ML LIQUID PO SCH (09:42)
[2020-12-25 15:01] VITALS: BP 111/70
--- NOTE | 2020-12-25 17:58 | NUR ---
NO OTHER CONCERN IDENTIFIED DURING THE SHIFT. DRESSING INTACT. STILL NOTED WITH REDDISH OUTPUT TO THE URIN BAG. KEPT COMFORTABLE DURING THE ENTIRE SHIFT. WILL CONTINUE PLAN FOR CONTINUITY OF CARE.
[2020-12-25 20:20] VITALS: BP 116/51
[2020-12-25] MEDS: OXYCODONE HCL 5 MG TABLET PO PRN (22:10)
[2020-12-26 04:10] VITALS: BP 106/50
--- NOTE | 2020-12-26 06:24 | NUR ---
noted with clots and fc leakage in the patient diaper. flushed FC PRN as ordered. Noted with clear yellow output towards mid-shift to the end of the shift. Patient reported relief. Given x1 pain med PRN. all due meds given. kept call light within reach. Frequent checks done. Will endorse to the next shift for continuity of care.
[2020-12-26 06:51] LABS: HEMATOCRIT 28.8 % (31.2-41.9); MEAN CORPUSCULAR HEMOGLOBIN 28.6 uug (24.7-32.8); MEAN CORPUSCULAR VOLUME 89.4 fL (75.5-95.3); PLATELET COUNT (AUTO) 364 K/uL (179-408)
[2020-12-26 07:22] LABS: CREATININE 0.8 mg/dL (0.6-1.3); POTASSIUM 3.6 mmol/L (3.5-5.1)
[2020-12-26 07:30] VITALS: BP 120/47
[2020-12-26] MEDS: SULFASALAZINE 500 MG TABLET PO SCH (09:00)
[2020-12-26] MEDS: POTASSIUM CHLORIDE 20 MEQ TAB.PRT.SR PO SCH (09:43)
[2020-12-26] MEDS: ZINC SULFATE 220 MG CAPSULE PO SCH (09:43)
[2020-12-26] MEDS: FAMOTIDINE 20 MG TABLET PO SCH ×2 (09:43→18:11)
[2020-12-26] MEDS: CHOLECALCIFEROL 1,000 UNIT TABLET PO SCH (09:43)
[2020-12-26] MEDS: MULTIVIT, IRON, MIN NO. 8, FA TABLET PO SCH (09:43)
[2020-12-26] MEDS: POTASSIUM CHLORIDE 10 MEQ TAB.PRT.SR PO SCH (09:43)
[2020-12-26] MEDS: predniSONE 5 MG TABLET PO SCH (09:43)
[2020-12-26] MEDS: FUROSEMIDE 40 MG TABLET PO SCH (09:43)
[2020-12-26] MEDS: ASCORBIC ACID 500 MG TABLET PO SCH (09:44)
[2020-12-26] MEDS: GLUCOSAMINE PO SCH (09:44)
[2020-12-26] MEDS: METHYLSULFONYLMETHANE PO SCH (09:44)
--- NOTE | 2020-12-26 14:32 | NUR ---
INTERDISCIPLINARY TEAM CONFERENCE
[2020-12-26 15:59] VITALS: BP 117/50
--- NOTE | 2020-12-26 16:00 | NUR ---
Pt is a/o x 4. No complaint of pain, no signs of acute distress or discomfort. Participated with PT, cooperative with care and medications. Pt has a mcdowell catheter, per report from night time nanny, mcdowell has been leaking for a few days and last night a clot came out and leaking has been to a minimum since. Urine is no longer red, yellow/tony urine observed. Notified urologist today. Pt refuses taking sufasalazine . notified. Will continue to monitor pt.
[2020-12-26] MEDS: OXYCODONE HCL 5 MG TABLET PO PRN (20:55)
--- NOTE | 2020-12-27 00:01 | NUR ---
Received pt awake on bed with no respiratory distress noted, on room air saturating at 98%. She is alert and oriented x4 able to make needs known. Colostomy bag intact. FC patent and draining well with yellowish urine. Medicated pain x1 for low back pain, noted to be effective. All needs attended. Call light placed within reach. Will continue to monitor.
[2020-12-27 04:00] VITALS: BP 107/54
--- NOTE | 2020-12-27 06:27 | NUR ---
Pt slept throughout the night, easily arousable for care. Denies pain and discomfort at this time. FC noted with yellowish urine. Minimal leakage around FC noted. All needs attended. Call light placed within reach. Frequent visual checks done. Will endorse to next shift for continuity of care.
[2020-12-27 07:46] VITALS: BP 129/48
[2020-12-27] MEDS: SULFASALAZINE 500 MG TABLET PO SCH (08:00)
[2020-12-27] MEDS: POTASSIUM CHLORIDE 10 MEQ TAB.PRT.SR PO SCH (08:36)
[2020-12-27] MEDS: ASCORBIC ACID 500 MG TABLET PO SCH (08:36)
[2020-12-27] MEDS: FAMOTIDINE 20 MG TABLET PO SCH ×2 (08:37→18:07)
[2020-12-27] MEDS: CHOLECALCIFEROL 1,000 UNIT TABLET PO SCH (08:37)
[2020-12-27] MEDS: MULTIVIT, IRON, MIN NO. 8, FA TABLET PO SCH (08:37)
[2020-12-27] MEDS: METHYLSULFONYLMETHANE PO SCH (08:37)
[2020-12-27] MEDS: FUROSEMIDE 40 MG TABLET PO SCH (08:37)
[2020-12-27] MEDS: POTASSIUM CHLORIDE 20 MEQ TAB.PRT.SR PO SCH (08:37)
[2020-12-27] MEDS: ZINC SULFATE 220 MG CAPSULE PO SCH (08:37)
[2020-12-27] MEDS: predniSONE 5 MG TABLET PO SCH (08:37)
[2020-12-27] MEDS: GLUCOSAMINE PO SCH (08:37)
[2020-12-27] MEDS: ACETAMINOPHEN ES 500 MG TABLET PO PRN (10:38)
--- NOTE | 2020-12-27 12:45 | NUR ---
Pt is a/o x 4. She went to her follow up appt with her surgeon, Dr. Neal at 1100 via ambulance. Dressing on her abdomen was changed, colostomy emptied, pt is stable on room air, acetaminophen given for pain level 5 prior to transfer onto [facility] prior to appt. All medications given, refused sulfasalazine, cooperative with care. She is currently in no acute distress or discomfort. Will continue to monitor pt.
[2020-12-27 15:27] VITALS: BP 123/67
[2020-12-27 20:00] VITALS: BP 107/49
[2020-12-27] MEDS: OXYCODONE HCL 5 MG TABLET PO PRN (22:15)
[2020-12-28 04:00] VITALS: BP 126/52
[2020-12-28 07:38] VITALS: BP 106/50
[2020-12-28] MEDS: GLUCOSAMINE PO SCH (09:38)
[2020-12-28] MEDS: METHYLSULFONYLMETHANE PO SCH (09:38)
[2020-12-28] MEDS: MULTIVIT, IRON, MIN NO. 8, FA TABLET PO SCH (09:38)
[2020-12-28] MEDS: FAMOTIDINE 20 MG TABLET PO SCH ×2 (09:39→17:14)
[2020-12-28] MEDS: ZINC SULFATE 220 MG CAPSULE PO SCH (09:39)
[2020-12-28] MEDS: ASCORBIC ACID 500 MG TABLET PO SCH (09:39)
[2020-12-28] MEDS: POTASSIUM CHLORIDE 20 MEQ TAB.PRT.SR PO SCH (09:40)
[2020-12-28] MEDS: predniSONE 5 MG TABLET PO SCH (09:40)
[2020-12-28] MEDS: CHOLECALCIFEROL 1,000 UNIT TABLET PO SCH (09:40)
[2020-12-28] MEDS: POTASSIUM CHLORIDE 10 MEQ TAB.PRT.SR PO SCH (09:41)
[2020-12-28] MEDS: FUROSEMIDE 40 MG TABLET PO SCH (09:41)
[2020-12-28 16:11] VITALS: BP 144/42
[2020-12-28 16:53] VITALS: BP 103/53
[2020-12-28 20:42] VITALS: BP 144/53
[2020-12-28] MEDS: OXYCODONE HCL 5 MG TABLET PO PRN (21:29)
[2020-12-29 04:43] VITALS: BP 106/51
--- NOTE | 2020-12-29 06:36 | NUR ---
Pt slept throughout the night, easily arousable for care. Medicated pain x1 and noted effective. FC noted with yellowish urine and minimal leakage around FC. Colostomy bag intact and emptied PRN. All needs attended. Call light placed within reach. Frequent visual checks done. Will endorse to next shift for continuity of care.
[2020-12-29 08:00] VITALS: BP 126/54
[2020-12-29] MEDS: MULTIVIT, IRON, MIN NO. 8, FA TABLET PO SCH (09:00)
[2020-12-29] MEDS: POTASSIUM CHLORIDE 20 MEQ TAB.PRT.SR PO SCH (09:23)
[2020-12-29] MEDS: FUROSEMIDE 40 MG TABLET PO SCH (09:23)
[2020-12-29] MEDS: predniSONE 5 MG TABLET PO SCH (09:23)
[2020-12-29] MEDS: POTASSIUM CHLORIDE 10 MEQ TAB.PRT.SR PO SCH (09:24)
[2020-12-29] MEDS: METHYLSULFONYLMETHANE PO SCH (09:24)
[2020-12-29] MEDS: GLUCOSAMINE PO SCH (09:24)
[2020-12-29] MEDS: ASCORBIC ACID 500 MG TABLET PO SCH (09:25)
[2020-12-29] MEDS: ZINC SULFATE 220 MG CAPSULE PO SCH (09:25)
[2020-12-29] MEDS: CHOLECALCIFEROL 1,000 UNIT TABLET PO SCH (09:25)
[2020-12-29] MEDS: FAMOTIDINE 20 MG TABLET PO SCH ×2 (09:25→16:49)
[2020-12-29 15:43] VITALS: BP 121/44
--- NOTE | 2020-12-29 18:56 | NUR ---
patient is currently laying in bed in no acute distress. patient states being excited for her possible discharge tomorrow. Denies any pain or discomfort at this time. colostomy in place. f/c in place and patent draining clear yellow urine. v/s wnl at this time. side rails up x2, call light within reach.
--- NOTE | 2020-12-29 19:10 | NUR ---
Received report from ANGEL outside pt's room. At bedside, introduced myself and began phy. assessment. Pt AAOx4, PERRLA with great color, temp and appearance. Pt completely lucid and able to have a conversation, VSS 102/53, 73bpm, 18rpm, 97%, 99.1 (O). PE WNL, strong and reg pulses x 4ext, strong and equal financial institution manager strength bilat. Pt complaining of mild to moderate pain in back, neck and elbows from laying in bed too long and some residual pain of arthritis. Pt states that she would like her pain pill at approx 2200 so she does not wake up during the night in pain. I said I would have her pain pill ready whenever she would like to take it. Pt very thankful. Denies any nausea, SOB, or dizziness. No s/sx of distress present. Call light within reach,
[2020-12-29 20:03] VITALS: BP 102/53
--- NOTE | 2020-12-29 21:30 | NUR ---
TOOL AND DIE MACHINIST at bedside to change pt's diaper and provide pericare. TOOL AND DIE MACHINIST told to call me if she needs help with pt, TOOL AND DIE MACHINIST confirmed. Pt clean and dry and repositioned in pos of comfort, pt ready for HS. Pt tolerated well.
[2020-12-29] MEDS: OXYCODONE HCL 5 MG TABLET PO PRN (21:43)
--- NOTE | 2020-12-29 21:45 | NUR ---
Pt asked for her PRN pain medication of 20mg Oxycodon. Medication administered PO without difficulty or any s/sx of reaction. Pt reassessed after 45min, medication was affective, pt no longer complaining of pain or discomfort.
--- NOTE | 2020-12-29 23:50 | NUR ---
Pt sleeping soundly with audible snoring.
--- NOTE | 2020-12-30 02:30 | NUR ---
Pt wide awake and resting comfortably watching tv. At pt bedside, providing education regarding colostomy bag care, answering some questions pt has regarding care and management of. Offered pt prn sleep aid or sedative to help with sleep, pt refused and said she will doze off again soon. No s/sx of distress, no complaints of pain or discomfort.
--- NOTE | 2020-12-30 03:38 | NUR ---
Pt sleeping soundly with audible snoring.
[2020-12-30 04:00] VITALS: BP 118/51
[2020-12-30 07:49] VITALS: BP 96/52
[2020-12-30] MEDS: POTASSIUM CHLORIDE 20 MEQ TAB.PRT.SR PO SCH (09:28)
[2020-12-30] MEDS: FAMOTIDINE 20 MG TABLET PO SCH (09:28)
[2020-12-30] MEDS: POTASSIUM CHLORIDE 10 MEQ TAB.PRT.SR PO SCH (09:28)
[2020-12-30] MEDS: FUROSEMIDE 40 MG TABLET PO SCH (09:28)
[2020-12-30] MEDS: CHOLECALCIFEROL 1,000 UNIT TABLET PO SCH (09:28)
[2020-12-30] MEDS: MULTIVIT, IRON, MIN NO. 8, FA TABLET PO SCH (09:28)
[2020-12-30] MEDS: ZINC SULFATE 220 MG CAPSULE PO SCH (09:28)
[2020-12-30] MEDS: ASCORBIC ACID 500 MG TABLET PO SCH (09:28)
[2020-12-30] MEDS: predniSONE 5 MG TABLET PO SCH (09:28)
[2020-12-30] MEDS: METHYLSULFONYLMETHANE PO SCH (09:29)
[2020-12-30] MEDS: GLUCOSAMINE PO SCH (09:29)
--- NOTE | 2020-12-30 14:40 | NUR ---
Patient D/C'd home with home health to continue PT, OT, and RN services. On room air, VSS upon discharge. No acute distress noted. Patient stable. Skin intact. Abdominal incision kept dry and clean, open to air. No signs of infection noted. Left upper arm midline removed, tip intact. No signs of bleeding noted. Colostomy bag draining brown, soft stool. Cleveland catheter draining yellow clear urine. Output of 200 cc noted before d/c. Education provided. Pt verbalized understanding. Follow up PCP and surgeon as scheduled. All belongings gathered and sent home with patient. to transport home
== END 2020-12-30 16:00 | disposition home health service (06) | DRG 949 ==
PROVIDERS: ADMIT Physical Medicine & Rehabilitation Pain Medicine; ATTEND Physical Medicine & Rehabilitation Pain Medicine
PROC: 05HF33Z Insertion of Infusion Device into Left Cephalic Vein, Percutaneous Approach (ICD-10-PCS; principal; 2020-12-21)
DX: Z48.3 Aftercare following surgery for neoplasm (principal); I50.33 Acute on chronic diastolic (congestive) heart failure; C18.2 Malignant neoplasm of ascending colon; Z68.42 Body mass index [BMI] 45.0-49.9, adult; N39.0 Urinary tract infection, site not specified; E46 Unspecified protein-calorie malnutrition; T81.41XA Infection following a procedure, superficial incisional surgical site, initial encounter; L03.311 Cellulitis of abdominal wall; N02.9 Recurrent and persistent hematuria with unspecified morphologic changes; K57.80 Diverticulitis of intestine, part unspecified, with perforation and abscess without bleeding; R53.1 Weakness; D64.9 Anemia, unspecified; E66.01 Morbid (severe) obesity due to excess calories; G47.33 Obstructive sleep apnea (adult) (pediatric); N73.9 Female pelvic inflammatory disease, unspecified; I11.0 Hypertensive heart disease with heart failure; I77.6 Arteritis, unspecified; J44.9 Chronic obstructive pulmonary disease, unspecified; M06.9 Rheumatoid arthritis, unspecified; Z96.653 Presence of artificial knee joint, bilateral; Z96.642 Presence of left artificial hip joint; Z93.3 Colostomy status; Z90.49 Acquired absence of other specified parts of digestive tract; Z87.440 Personal history of urinary (tract) infections; Z20.822 Contact with and (suspected) exposure to COVID-19; I27.20 Pulmonary hypertension, unspecified; B96.1 Klebsiella pneumoniae [K. pneumoniae] as the cause of diseases classified elsewhere; E87.6 Hypokalemia; F45.8 Other somatoform disorders; G89.29 Other chronic pain; H26.9 Unspecified cataract; Y92.239 Unspecified place in hospital as the place of occurrence of the external cause; Z87.891 Personal history of nicotine dependence; M19.90 Unspecified osteoarthritis, unspecified site; Z88.1 Allergy status to other antibiotic agents; Z88.8 Allergy status to other drugs, medicaments and biological substances; Z83.2 Family history of diseases of the blood and blood-forming organs and certain disorders involving the immune mechanism; Z83.49 Family history of other endocrine, nutritional and metabolic diseases; Z82.61 Family history of arthritis
CPT/HCPCS: 36415; 70030-TC; 82652; 83550; 83735; 84100; 84156; 84300; 84443; 85025; 87070; 87077; 87086; 97161; A4217; A6209; A9150; J2185; J2248; J2543; J3370; J3490; J7040; J7050; J7060; J7512

== ENCOUNTER 2021-12-10 14:10 | Inpatient (IN) | payer MEDICARE, BC ==
[~2021-12-10] VITALS: Ht 165.1 cm; Wt 145.1 kg
[~2021-12-10 14:10] MED LIST changes: +ACET-73 PO; -ALBU18HF2 IH; +ASCO-382 PO; -BUME2TAB7 PO; -CELE200C PO; +CHOL100034; +FAMO20TA8 PO; +GLUC-199 PO; +HYDR-3974 PO; +IPRA3AMP23 IH; +MULT-213 PO; +ONDA4TAB11 PO; -OXYC-132 PO; +PIPE3.379 IV; +PRED-170 PO; -PRED2.5T PO; -SULF1TAB47 PO; +SULF500T8 PO; +UBID50TA3 PO; +VOLTAREN 1% GEL TOP; +ZINC30TA2 PO
[2021-12-10] MEDS ORDERED: MAG HYDROX/AL HYDROX/SIMETH 30 ML LIQUID UDC PO ONE (14:30)
[2021-12-10] MEDS ORDERED: ONDANSETRON 4 MG/2 ML VIAL IV ONE (14:30)
[2021-12-10 14:51] LABS: CARBON DIOXIDE 28 mmol/L (21-32); CHLORIDE 101 mmol/L (98-107); CREATININE 1.5 mg/dL (0.6-1.3); GLUCOSE 92 mg/dL (74-106); POTASSIUM 3.7 mmol/L (3.5-5.1); UREA NITROGEN, BLOOD 21 mg/dL (7-18)
[2021-12-10 14:54] LABS: HEMATOCRIT 35.6 % (31.2-41.9); MEAN CORPUSCULAR VOLUME 100.8 fL (75.5-95.3); PLATELET COUNT (AUTO) 186 K/uL (179-408)
[2021-12-10 15:00] LABS: ALANINE AMINOTRANSFERASE 27 U/L (14-59); ALKALINE PHOSPHATASE 147 U/L (50-136); ASPARTATE AMINOTRANSFERASE 25 U/L (15-37); BILIRUBIN,DIRECT 0.4 mg/dL (0.0-0.2); BILIRUBIN,TOTAL 0.8 mg/dL (0.2-1.0); TOTAL PROTEIN, SERUM 7.3 g/dL (6.4-8.2)
[2021-12-10] MEDS ORDERED: ASPIRIN 325 MG TABLET PO ONE (15:15)
[2021-12-10] MEDS ORDERED: MAG HYDROX/AL HYDROX/SIMETH 30 ML LIQUID UDC ONE (15:32)
[2021-12-10] MEDS ORDERED: PIPERACILLIN SODIUM/TAZOBACTAM 3.375 G in IV DEXTROSE 5% 50 ML IV ONE (16:45)
[2021-12-10] MEDS ORDERED: REMEDY ESSENTIAL ZINC PASTE 113 GM TP PRN (17:00)
[2021-12-10] MEDS ORDERED: ONDANSETRON 4 MG/2 ML VIAL IV PRN (17:00)
[2021-12-10] MEDS ORDERED: ENOXAPARIN SODIUM 40 MG/0.4 ML DISP.SYRIN SQ SCH ×2 (17:00→22:22)
[2021-12-10] MEDS ORDERED: MAGNESIUM HYDROXIDE 30 ML LIQUID UDC PO PRN (17:00)
[2021-12-10] MEDS ORDERED: IV NORMAL SALINE 1000 ML BAG IV ONE (17:15)
[2021-12-10] MEDS ORDERED: ENOXAPARIN SODIUM 100 MG/ML DISP.SYRIN SQ ONE (17:15)
[2021-12-10] MEDS ORDERED: PIPERACILLIN SODIUM/TAZO 3.375 GM VIAL ONE (17:49)
[2021-12-10 18:05] LABS: *BILIRUBIN,URIN NEGATIVE (NEGATIVE); *BLOOD, URINE 2+ (NEGATIVE); *CLARITY,URINE CLOUDY (CLEAR); *COLOR,URINE YELLOW (YELLOW); *KETONES,URINE TRACE (NEGATIVE); *UROBILINOGEN,URINE 0.2 E.U./dl (NORMAL); LEUKOCYTE ESTERASE ,URINE 2+ (NEGATIVE); NITRITE, URINE NEGATIVE (NEGATIVE); UGLUCOSE NEGATIVE (NEGATIVE)
[2021-12-10 18:27] LABS: BACTERIA,URINE MODERATE /HPF (NONE SEEN); SQUAMOUS EPITHELIAL CELL,UR MANY /HPF (NONE SEEN); WBC,URINE 20-50 /HPF (0-3)
[2021-12-10] MEDS ORDERED: ACETAMINOPHEN ES 500 MG TABLET PO ONE (19:30)
[2021-12-10] MEDS ORDERED: ACETAMINOPHEN ES 500 MG TABLET ONE (19:31)
[2021-12-10] MEDS ORDERED: PIPERACILLIN SODIUM/TAZOBACTAM 3.375 G in IV DEXTROSE 5% 50 ML IV SCH (22:00)
[2021-12-10] MEDS: IV 1/2NS 1000 ML 1,000 ML IV PRN (22:40)
[2021-12-10 23:07] VITALS: BP 119/71
[2021-12-11] MEDS ORDERED: PIPERACILLIN SODIUM/TAZOBACTAM 3.375 G in IV DEXTROSE 5% 50 ML IV ONE (02:00)
[2021-12-11] MEDS: ACETAMINOPHEN 325 MG TABLET PO PRN ×2 (03:01→17:12)
[2021-12-11 04:00] VITALS: BP 105/46
[2021-12-11] MEDS: PANTOPRAZOLE SODIUM 40 MG TABLET.DR PO SCH (06:20)
[2021-12-11 07:10] LABS: HEMATOCRIT 32.9 % (31.2-41.9); MEAN CORPUSCULAR HEMOGLOBIN 32.9 uug (24.7-32.8); MEAN CORPUSCULAR VOLUME 100.8 fL (75.5-95.3); PLATELET COUNT (AUTO) 170 K/uL (179-408)
[2021-12-11 07:28] LABS: CARBON DIOXIDE 26 mmol/L (21-32); CHLORIDE 102 mmol/L (98-107); CREATININE 1.6 mg/dL (0.6-1.3); GLUCOSE 60 mg/dL (74-106); MAGNESIUM 2.1 mg/dL (1.8-2.4); PHOSPHOROUS 3.9 mg/dL (2.5-4.9); UREA NITROGEN, BLOOD 24 mg/dL (7-18)
[2021-12-11 07:40] LABS: THYROID STIMULATING HORMONE 0.763 mIU/mL (0.358-3.740)
[2021-12-11] MEDS: PIPERACILLIN SODIUM/TAZOBACTAM 3.375 G in IV DEXTROSE 5% 100 ML IV SCH ×2 (08:49→17:11)
[2021-12-11] MEDS ORDERED: ASPIRIN 81 MG TAB.CHEW PO SCH (09:00)
[2021-12-11 11:34] VITALS: BP 104/50
[2021-12-11] MEDS ORDERED: ACETAMINOPHEN ES 500 MG TABLET- SA PATIENTS-PAIN ONLY PO PRN (15:00)
[2021-12-11] MEDS ORDERED: HYDROCODONE/APAP 5-325MG TABLET PO PRN (15:00)
[2021-12-11] MEDS ORDERED: HOME MED MISCELLANEOUS XX SCH (15:15)
[2021-12-11] MEDS ORDERED: SULF500T46 PO (15:24)
[2021-12-11] MEDS ORDERED: CELE100C PO (15:26)
[2021-12-11] MEDS ORDERED: POTA-88 PO (15:26)
[2021-12-11 15:50] VITALS: BP 121/47
[2021-12-11] MEDS ORDERED: DICLOFENAC TOP SCH (17:00)
[2021-12-11] MEDS: CELECOXIB 100 MG CAPSULE PO SCH (17:12)
[2021-12-11 20:00] VITALS: BP 108/57
[2021-12-11] MEDS ORDERED: ENOXAPARIN SODIUM 40 MG/0.4 ML DISP.SYRIN SQ SCH (21:00)
[2021-12-11] MEDS: IV 1/2NS 1000 ML 1,000 ML IV PRN (21:21)
[2021-12-12] VITALS: BP 140/56
[2021-12-12] MEDS: PIPERACILLIN SODIUM/TAZOBACTAM 3.375 G in IV DEXTROSE 5% 100 ML IV SCH ×2 (01:01→09:07)
[2021-12-12] MEDS: ACETAMINOPHEN 325 MG TABLET PO PRN (01:12)
[2021-12-12 04:00] VITALS: BP 140/55
[2021-12-12] MEDS: GUAIFENESIN/CODEINE 5 ML LIQUID UDC PO PRN ×2 (04:45→20:13)
[2021-12-12] MEDS: PANTOPRAZOLE SODIUM 40 MG TABLET.DR PO SCH (06:12)
[2021-12-12 07:31] LABS: HEMATOCRIT 32.7 % (31.2-41.9); MEAN CORPUSCULAR VOLUME 101.1 fL (75.5-95.3); PLATELET COUNT (AUTO) 173 K/uL (179-408)
[2021-12-12 08:24] LABS: CARBON DIOXIDE 27 mmol/L (21-32); CHLORIDE 102 mmol/L (98-107); CREATININE 1.4 mg/dL (0.6-1.3); GLUCOSE 123 mg/dL (74-106); MAGNESIUM 2.3 mg/dL (1.8-2.4); PHOSPHOROUS 2.3 mg/dL (2.5-4.9); POTASSIUM 3.7 mmol/L (3.5-5.1); UREA NITROGEN, BLOOD 21 mg/dL (7-18)
[2021-12-12 08:30] VITALS: BP 104/62
[2021-12-12] MEDS ORDERED: ZINC GLUCONATE PO SCH (09:00)
[2021-12-12] MEDS ORDERED: POTASSIUM CHLORIDE 10 MEQ TAB.PRT.SR PO SCH (09:00)
[2021-12-12] MEDS ORDERED: [UNRECOGNIZED DRUG - OTHER] PO SCH (09:00)
[2021-12-12] MEDS ORDERED: UBIDECARENONE 50 MG PO SCH (09:00)
[2021-12-12] MEDS ORDERED: SULFASALAZINE 500 MG TABLET PO SCH (09:00)
[2021-12-12] MEDS ORDERED: CHONDROITIN A PO SCH (09:00)
[2021-12-12] MEDS ORDERED: MSM PO SCH (09:00)
[2021-12-12] MEDS ORDERED: GLUCOSAMINE PO SCH (09:00)
[2021-12-12] MEDS: ASCORBIC ACID 500 MG TABLET PO SCH (09:06)
[2021-12-12] MEDS: FUROSEMIDE 40 MG TABLET PO SCH (09:07)
[2021-12-12] MEDS: predniSONE 5 MG TABLET PO SCH (09:07)
[2021-12-12] MEDS: MULTIVIT, IRON, MIN NO. 8, FA TABLET PO SCH (09:07)
[2021-12-12] MEDS: POTASSIUM CHLORIDE 20 MEQ TAB.PRT.SR PO SCH (09:07)
[2021-12-12] MEDS: CELECOXIB 100 MG CAPSULE PO SCH ×2 (09:07→20:13)
[2021-12-12 12:19] VITALS: BP 115/56
[2021-12-12] MEDS ORDERED: CELE200C PO (15:27)
[2021-12-12] MEDS ORDERED: NEUTRA PHOS PACKET PO ONE (16:00)
[2021-12-12 16:39] VITALS: BP 130/57
[2021-12-12] MEDS: PROTEIN SUPPLEMENT (PROSTAT) 30 ML LIQUID PO SCH (16:44)
[2021-12-12 20:00] VITALS: BP 131/71
[2021-12-12] MEDS: SULFASALAZINE 500 MG PO SCH (21:28)
[2021-12-12] MEDS: [UNRECOGNIZED DRUG - OTHER] PO SCH (21:28)
[2021-12-13] MEDS: ACETAMINOPHEN 325 MG TABLET PO PRN (01:57)
[2021-12-13 04:00] VITALS: BP 122/66
[2021-12-13] MEDS: PANTOPRAZOLE SODIUM 40 MG TABLET.DR PO SCH (06:24)
[2021-12-13 06:47] LABS: HEMATOCRIT 33.2 % (31.2-41.9); MEAN CORPUSCULAR HEMOGLOBIN 32.7 uug (24.7-32.8); MEAN CORPUSCULAR VOLUME 101.1 fL (75.5-95.3); PLATELET COUNT (AUTO) 186 K/uL (179-408)
[2021-12-13 07:36] LABS: CARBON DIOXIDE 31 mmol/L (21-32); CHLORIDE 104 mmol/L (98-107); CREATININE 1.4 mg/dL (0.6-1.3); GLUCOSE 117 mg/dL (74-106); MAGNESIUM 2.1 mg/dL (1.8-2.4); PHOSPHOROUS 2.9 mg/dL (2.5-4.9); UREA NITROGEN, BLOOD 22 mg/dL (7-18)
[2021-12-13] MEDS: POTASSIUM CHLORIDE 20 MEQ TAB.PRT.SR PO SCH (08:32)
[2021-12-13] MEDS: predniSONE 5 MG TABLET PO SCH (08:32)
[2021-12-13] MEDS: FUROSEMIDE 40 MG TABLET PO SCH (08:32)
[2021-12-13] MEDS: [UNRECOGNIZED DRUG - OTHER] PO SCH ×2 (08:33→17:45)
[2021-12-13] MEDS: CELECOXIB 200 MG CAPSULE PO SCH (08:33)
[2021-12-13] MEDS: SULFASALAZINE 500 MG PO SCH ×2 (08:33→17:45)
[2021-12-13] MEDS: ASCORBIC ACID 500 MG TABLET PO SCH (08:33)
[2021-12-13] MEDS: MULTIVIT, IRON, MIN NO. 8, FA TABLET PO SCH (08:33)
[2021-12-13] MEDS: PROTEIN SUPPLEMENT (PROSTAT) 30 ML LIQUID PO SCH ×2 (08:34→17:45)
[2021-12-13] MEDS: GUAIFENESIN/CODEINE 5 ML LIQUID UDC PO PRN (09:57)
[2021-12-13] MEDS ORDERED: MEROPENEM 500 MG in IV NORMAL SALINE 50 ML IV SCH (11:00)
[2021-12-13] MEDS: MEROPENEM 1 G in IV NORMAL SALINE 100 ML IV SCH ×2 (11:53→20:48)
[2021-12-13 12:03] VITALS: BP 134/62
[2021-12-13 16:00] VITALS: BP 128/47
[2021-12-13 20:00] VITALS: BP 115/55
[2021-12-13] MEDS: CELECOXIB 100 MG CAPSULE PO SCH (20:50)
[2021-12-14] MEDS: MEROPENEM 1 G in IV NORMAL SALINE 100 ML IV SCH ×2 (03:14→11:20)
[2021-12-14] MEDS: GUAIFENESIN/CODEINE 5 ML LIQUID UDC PO PRN (04:25)
[2021-12-14 04:41] VITALS: BP 146/65
[2021-12-14] MEDS: ACETAMINOPHEN 325 MG TABLET PO PRN (05:33)
[2021-12-14] MEDS: PANTOPRAZOLE SODIUM 40 MG TABLET.DR PO SCH (06:22)
[2021-12-14 06:54] LABS: HEMATOCRIT 31.7 % (31.2-41.9); MEAN CORPUSCULAR HEMOGLOBIN 33.1 uug (24.7-32.8); MEAN CORPUSCULAR VOLUME 99.9 fL (75.5-95.3); PLATELET COUNT (AUTO) 190 K/uL (179-408)
[2021-12-14 07:32] LABS: CREATININE 1.2 mg/dL (0.6-1.3); PHOSPHOROUS 2.5 mg/dL (2.5-4.9); POTASSIUM 4.1 mmol/L (3.5-5.1)
[2021-12-14 07:45] VITALS: BP 137/61
[2021-12-14] MEDS: predniSONE 5 MG TABLET PO SCH (08:21)
[2021-12-14] MEDS: SULFASALAZINE 500 MG PO SCH ×2 (08:21→17:29)
[2021-12-14] MEDS: [UNRECOGNIZED DRUG - OTHER] PO SCH ×2 (08:21→17:29)
[2021-12-14] MEDS: MULTIVIT, IRON, MIN NO. 8, FA TABLET PO SCH (08:21)
[2021-12-14] MEDS: FUROSEMIDE 40 MG TABLET PO SCH (08:21)
[2021-12-14] MEDS: CELECOXIB 200 MG CAPSULE PO SCH (08:21)
[2021-12-14] MEDS: ASCORBIC ACID 500 MG TABLET PO SCH (08:21)
[2021-12-14] MEDS: POTASSIUM CHLORIDE 20 MEQ TAB.PRT.SR PO SCH (08:21)
[2021-12-14] MEDS: PROTEIN SUPPLEMENT (PROSTAT) 30 ML LIQUID PO SCH ×2 (08:22→17:29)
[2021-12-14 11:35] VITALS: BP 140/47
[2021-12-14 16:10] VITALS: BP 149/65
[2021-12-14] MEDS: CEFTRIAXONE 2 G in IV DEXTROSE 5% 100 ML IV SCH (17:30)
[2021-12-14 19:59] VITALS: BP 142/60
[2021-12-14] MEDS: CELECOXIB 100 MG CAPSULE PO SCH (20:08)
[2021-12-15 04:00] VITALS: BP 119/64
[2021-12-15] MEDS: PANTOPRAZOLE SODIUM 40 MG TABLET.DR PO SCH (06:08)
[2021-12-15 07:06] LABS: HEMATOCRIT 33.9 % (31.2-41.9); MEAN CORPUSCULAR HEMOGLOBIN 33.5 uug (24.7-32.8); MEAN CORPUSCULAR VOLUME 100.1 fL (75.5-95.3); PLATELET COUNT (AUTO) 230 K/uL (179-408)
[2021-12-15 07:26] LABS: CREATININE 1.1 mg/dL (0.6-1.3); MAGNESIUM 2.2 mg/dL (1.8-2.4); PHOSPHOROUS 3.1 mg/dL (2.5-4.9); POTASSIUM 4.2 mmol/L (3.5-5.1)
[2021-12-15] MEDS: ASCORBIC ACID 500 MG TABLET PO SCH (08:47)
[2021-12-15] MEDS: CELECOXIB 200 MG CAPSULE PO SCH (08:47)
[2021-12-15] MEDS: MULTIVIT, IRON, MIN NO. 8, FA TABLET PO SCH (08:47)
[2021-12-15] MEDS: POTASSIUM CHLORIDE 20 MEQ TAB.PRT.SR PO SCH (08:47)
[2021-12-15] MEDS: FUROSEMIDE 40 MG TABLET PO SCH (08:47)
[2021-12-15] MEDS: predniSONE 5 MG TABLET PO SCH (08:47)
[2021-12-15] MEDS: PROTEIN SUPPLEMENT (PROSTAT) 30 ML LIQUID PO SCH ×2 (08:48→16:39)
[2021-12-15] MEDS: [UNRECOGNIZED DRUG - OTHER] PO SCH ×2 (08:50→16:39)
[2021-12-15] MEDS: SULFASALAZINE 500 MG PO SCH ×2 (08:50→16:39)
[2021-12-15 11:34] VITALS: BP 126/67
[2021-12-15] MEDS: AMMONIUM LACTATE 12% LOTION 225 GM BOTTLE TP SCH (16:41)
[2021-12-15 17:06] VITALS: BP 141/57
[2021-12-15] MEDS: CEFTRIAXONE 2 G in IV DEXTROSE 5% 100 ML IV SCH (17:30)
[2021-12-15 20:00] VITALS: BP 131/53
[2021-12-15] MEDS: CELECOXIB 100 MG CAPSULE PO SCH (21:11)
[2021-12-15] MEDS: ACETAMINOPHEN 325 MG TABLET PO PRN (23:41)
[2021-12-16 03:00] VITALS: BP 131/53
[2021-12-16 06:00] VITALS: BP 129/53
[2021-12-16] MEDS: PANTOPRAZOLE SODIUM 40 MG TABLET.DR PO SCH (06:04)
[2021-12-16 06:16] LABS: HEMATOCRIT 34.9 % (31.2-41.9); MEAN CORPUSCULAR HEMOGLOBIN 33.1 uug (24.7-32.8); MEAN CORPUSCULAR VOLUME 99.1 fL (75.5-95.3); PLATELET COUNT (AUTO) 281 K/uL (179-408)
[2021-12-16 07:01] LABS: CREATININE 1.1 mg/dL (0.6-1.3); MAGNESIUM 2.2 mg/dL (1.8-2.4); PHOSPHOROUS 3.5 mg/dL (2.5-4.9); POTASSIUM 4.2 mmol/L (3.5-5.1)
[2021-12-16] MEDS: FUROSEMIDE 40 MG TABLET PO SCH (09:09)
[2021-12-16] MEDS: ASCORBIC ACID 500 MG TABLET PO SCH (09:09)
[2021-12-16] MEDS: predniSONE 5 MG TABLET PO SCH (09:09)
[2021-12-16] MEDS: PROTEIN SUPPLEMENT (PROSTAT) 30 ML LIQUID PO SCH ×2 (09:10→17:00)
[2021-12-16] MEDS: AMMONIUM LACTATE 12% LOTION 225 GM BOTTLE TP SCH ×2 (09:10→17:10)
[2021-12-16] MEDS: MULTIVIT, IRON, MIN NO. 8, FA TABLET PO SCH (09:10)
[2021-12-16] MEDS: [UNRECOGNIZED DRUG - OTHER] PO SCH ×2 (09:10→17:10)
[2021-12-16] MEDS: POTASSIUM CHLORIDE 20 MEQ TAB.PRT.SR PO SCH (09:10)
[2021-12-16] MEDS: SULFASALAZINE 500 MG PO SCH ×2 (09:10→17:10)
[2021-12-16] MEDS: CELECOXIB 200 MG CAPSULE PO SCH ×2 (09:12→21:17)
[2021-12-16 11:03] LABS: BAND % (MANUAL) 4 % (0-10); EOSINOPHILS % (MANUAL) 1 % (0-8); LYMPHOCYTES % (MANUAL) 4 % (20-40); METAMYELOCYTES % 1 % (0-1); MONOCYTES % (MANUAL) 18 % (2-10); MYELOCYTES % 1 % (0-0); NEUTROPHILS % (MANUAL) 71 % (42-75)
[2021-12-16 11:28] VITALS: BP 134/55
[2021-12-16] MEDS: ACETAMINOPHEN 325 MG TABLET PO PRN ×2 (12:57→21:17)
[2021-12-16] MEDS ORDERED: CEFT1VIA15 IV (15:12)
[2021-12-16] MEDS ORDERED: PROT30LI PO (15:12)
[2021-12-16] MEDS ORDERED: PANT40TA49 PO (15:12)
[2021-12-16 16:36] VITALS: BP 123/54
[2021-12-16] MEDS: CEFTRIAXONE 2 G in IV DEXTROSE 5% 100 ML IV SCH (17:57)
[2021-12-16 20:00] VITALS: BP 131/63
[2021-12-16] MEDS: CELECOXIB 100 MG CAPSULE PO SCH (21:22)
[2021-12-17 04:00] VITALS: BP 145/68
[2021-12-17] MEDS: ACETAMINOPHEN 325 MG TABLET PO PRN ×3 (05:54→21:15)
[2021-12-17] MEDS: PANTOPRAZOLE SODIUM 40 MG TABLET.DR PO SCH (05:54)
[2021-12-17] MEDS: CELECOXIB 200 MG CAPSULE PO SCH (08:25)
[2021-12-17] MEDS: POTASSIUM CHLORIDE 20 MEQ TAB.PRT.SR PO SCH (08:25)
[2021-12-17] MEDS: predniSONE 5 MG TABLET PO SCH (08:26)
[2021-12-17] MEDS: ASCORBIC ACID 500 MG TABLET PO SCH (08:27)
[2021-12-17] MEDS: MULTIVIT, IRON, MIN NO. 8, FA TABLET PO SCH (08:27)
[2021-12-17] MEDS: [UNRECOGNIZED DRUG - OTHER] PO SCH ×2 (08:29→17:22)
[2021-12-17] MEDS: SULFASALAZINE 500 MG PO SCH ×2 (08:29→17:22)
[2021-12-17] MEDS: FUROSEMIDE 40 MG TABLET PO SCH (08:29)
[2021-12-17] MEDS: PROTEIN SUPPLEMENT (PROSTAT) 30 ML LIQUID PO SCH ×2 (08:30→17:22)
[2021-12-17] MEDS: AMMONIUM LACTATE 12% LOTION 225 GM BOTTLE TP SCH ×2 (08:31→17:23)
[2021-12-17 09:49] LABS: HEMATOCRIT 35.8 % (31.2-41.9); MEAN CORPUSCULAR HEMOGLOBIN 33.4 uug (24.7-32.8); MEAN CORPUSCULAR VOLUME 98.8 fL (75.5-95.3); PLATELET COUNT (AUTO) 335 K/uL (179-408)
[2021-12-17 10:38] LABS: BILIRUBIN,TOTAL 0.4 mg/dL (0.2-1.0); CREATININE 1.2 mg/dL (0.6-1.3); POTASSIUM 4.2 mmol/L (3.5-5.1); TOTAL PROTEIN, SERUM 7.9 g/dL (6.4-8.2)
[2021-12-17 10:39] VITALS: BP 138/66
[2021-12-17 15:27] VITALS: BP 160/74
[2021-12-17] MEDS: CEFTRIAXONE 2 G in IV DEXTROSE 5% 100 ML IV SCH (18:34)
[2021-12-17 20:09] VITALS: BP 112/56
[2021-12-17] MEDS: CELECOXIB 100 MG CAPSULE PO SCH (21:00)
[2021-12-18] MEDS: PANTOPRAZOLE SODIUM 40 MG TABLET.DR PO SCH (06:11)
[2021-12-18 06:53] LABS: HEMATOCRIT 35.5 % (31.2-41.9); MEAN CORPUSCULAR HEMOGLOBIN 32.8 uug (24.7-32.8); MEAN CORPUSCULAR VOLUME 98.8 fL (75.5-95.3); PLATELET COUNT (AUTO) 365 K/uL (179-408)
[2021-12-18 07:13] LABS: BILIRUBIN,TOTAL 0.3 mg/dL (0.2-1.0); CREATININE 1.2 mg/dL (0.6-1.3); POTASSIUM 3.9 mmol/L (3.5-5.1); TOTAL PROTEIN, SERUM 7.7 g/dL (6.4-8.2)
[2021-12-18] MEDS: AMMONIUM LACTATE 12% LOTION 225 GM BOTTLE TP SCH ×2 (09:00→17:25)
[2021-12-18] MEDS: ASCORBIC ACID 500 MG TABLET PO SCH (09:23)
[2021-12-18] MEDS: FUROSEMIDE 40 MG TABLET PO SCH (09:23)
[2021-12-18] MEDS: POTASSIUM CHLORIDE 20 MEQ TAB.PRT.SR PO SCH (09:23)
[2021-12-18] MEDS: CELECOXIB 200 MG CAPSULE PO SCH (09:23)
[2021-12-18] MEDS: SULFASALAZINE 500 MG PO SCH ×2 (09:23→17:25)
[2021-12-18] MEDS: [UNRECOGNIZED DRUG - OTHER] PO SCH ×2 (09:23→17:25)
[2021-12-18] MEDS: predniSONE 5 MG TABLET PO SCH (09:23)
[2021-12-18] MEDS: MULTIVIT, IRON, MIN NO. 8, FA TABLET PO SCH (09:24)
[2021-12-18] MEDS: PROTEIN SUPPLEMENT (PROSTAT) 30 ML LIQUID PO SCH ×2 (09:24→17:25)
[2021-12-18] MEDS: ACETAMINOPHEN 325 MG TABLET PO PRN ×2 (10:25→17:32)
[2021-12-18 12:37] VITALS: BP 147/57
[2021-12-18 16:58] VITALS: BP 145/48
[2021-12-18] MEDS: CEFTRIAXONE 2 G in IV DEXTROSE 5% 100 ML IV SCH (18:07)
[2021-12-18] MEDS: GLUCOSAMINE PO SCH (18:31)
[2021-12-18] MEDS: METHYLSULFONYLMETHANE PO SCH (18:31)
[2021-12-18 20:00] VITALS: BP 127/54
[2021-12-18] MEDS: CELECOXIB 100 MG CAPSULE PO SCH (20:29)
[2021-12-19] MEDS: ACETAMINOPHEN 325 MG TABLET PO PRN ×3 (00:38→21:37)
[2021-12-19] MEDS: PANTOPRAZOLE SODIUM 40 MG TABLET.DR PO SCH (06:09)
[2021-12-19 07:08] LABS: HEMATOCRIT 35.3 % (31.2-41.9); MEAN CORPUSCULAR HEMOGLOBIN 32.9 uug (24.7-32.8); MEAN CORPUSCULAR VOLUME 97.4 fL (75.5-95.3); PLATELET COUNT (AUTO) 371 K/uL (179-408)
[2021-12-19 07:25] LABS: BILIRUBIN,TOTAL 0.4 mg/dL (0.2-1.0); CREATININE 1.2 mg/dL (0.6-1.3); POTASSIUM 3.8 mmol/L (3.5-5.1); TOTAL PROTEIN, SERUM 7.7 g/dL (6.4-8.2)
[2021-12-19] MEDS: ASCORBIC ACID 500 MG TABLET PO SCH (08:33)
[2021-12-19] MEDS: AMMONIUM LACTATE 12% LOTION 225 GM BOTTLE TP SCH ×2 (08:33→17:29)
[2021-12-19] MEDS: CELECOXIB 200 MG CAPSULE PO SCH (08:33)
[2021-12-19] MEDS: [UNRECOGNIZED DRUG - OTHER] PO SCH ×2 (08:33→17:20)
[2021-12-19] MEDS: SULFASALAZINE 500 MG PO SCH ×2 (08:33→17:20)
[2021-12-19] MEDS: PROTEIN SUPPLEMENT (PROSTAT) 30 ML LIQUID PO SCH ×2 (08:33→17:29)
[2021-12-19] MEDS: POTASSIUM CHLORIDE 20 MEQ TAB.PRT.SR PO SCH (08:33)
[2021-12-19] MEDS: FUROSEMIDE 40 MG TABLET PO SCH (08:33)
[2021-12-19] MEDS: MULTIVIT, IRON, MIN NO. 8, FA TABLET PO SCH (08:33)
[2021-12-19] MEDS: predniSONE 5 MG TABLET PO SCH (08:33)
[2021-12-19 11:00] VITALS: BP 118/67
[2021-12-19 16:00] VITALS: BP 139/62
[2021-12-19] MEDS: GLUCOSAMINE PO SCH (17:19)
[2021-12-19] MEDS: METHYLSULFONYLMETHANE PO SCH (17:19)
[2021-12-19] MEDS: CEFTRIAXONE 2 G in IV DEXTROSE 5% 100 ML IV SCH (18:24)
[2021-12-19 20:00] VITALS: BP 138/65
[2021-12-19] MEDS: CELECOXIB 100 MG CAPSULE PO SCH (20:28)
[2021-12-20 04:00] VITALS: BP 112/60
[2021-12-20] MEDS: PANTOPRAZOLE SODIUM 40 MG TABLET.DR PO SCH (06:23)
[2021-12-20 07:14] LABS: HEMATOCRIT 34.7 % (31.2-41.9); MEAN CORPUSCULAR VOLUME 98.1 fL (75.5-95.3); PLATELET COUNT (AUTO) 364 K/uL (179-408)
[2021-12-20 07:36] LABS: BILIRUBIN,TOTAL 0.3 mg/dL (0.2-1.0); CREATININE 1.2 mg/dL (0.6-1.3); POTASSIUM 3.6 mmol/L (3.5-5.1); TOTAL PROTEIN, SERUM 7.6 g/dL (6.4-8.2)
[2021-12-20] MEDS: CELECOXIB 200 MG CAPSULE PO SCH (08:16)
[2021-12-20] MEDS: POTASSIUM CHLORIDE 20 MEQ TAB.PRT.SR PO SCH (08:16)
[2021-12-20] MEDS: FUROSEMIDE 40 MG TABLET PO SCH (08:16)
[2021-12-20] MEDS: SULFASALAZINE 500 MG PO SCH ×2 (08:16→16:54)
[2021-12-20] MEDS: [UNRECOGNIZED DRUG - OTHER] PO SCH ×2 (08:16→16:54)
[2021-12-20] MEDS: predniSONE 5 MG TABLET PO SCH (08:17)
[2021-12-20] MEDS: AMMONIUM LACTATE 12% LOTION 225 GM BOTTLE TP SCH ×2 (08:17→16:55)
[2021-12-20] MEDS: ASCORBIC ACID 500 MG TABLET PO SCH (08:17)
[2021-12-20] MEDS: MULTIVIT, IRON, MIN NO. 8, FA TABLET PO SCH (08:17)
[2021-12-20] MEDS: PROTEIN SUPPLEMENT (PROSTAT) 30 ML LIQUID PO SCH ×2 (08:17→16:55)
[2021-12-20] MEDS ORDERED: LIDOCAINE-MPF 2% 5 ML VIAL ONE (09:30)
[2021-12-20] MEDS ORDERED: DEXAMETHASONE SOD PHOSPHATE 4 MG INJ ONE (09:30)
[2021-12-20] MEDS ORDERED: PROPOFOL 200 MG/20 ML BOTTLE ONE (09:30)
[2021-12-20] MEDS ORDERED: SUCCINYLCHOLINE CHLORIDE 200 MG/10 ML VIAL ONE (09:30)
[2021-12-20] MEDS ORDERED: ONDANSETRON 4 MG/2 ML VIAL ONE (09:30)
[2021-12-20 11:28] VITALS: BP 117/62
[2021-12-20] MEDS: ACETAMINOPHEN 325 MG TABLET PO PRN ×2 (13:01→20:26)
[2021-12-20 16:08] VITALS: BP 103/62
[2021-12-20] MEDS: GLUCOSAMINE PO SCH (16:54)
[2021-12-20] MEDS: METHYLSULFONYLMETHANE PO SCH (16:54)
[2021-12-20] MEDS: CEFTRIAXONE 2 G in IV DEXTROSE 5% 100 ML IV SCH (16:55)
[2021-12-20] MEDS: CELECOXIB 100 MG CAPSULE PO SCH (20:15)
[2021-12-20 20:39] VITALS: BP 111/60
[2021-12-21 04:00] VITALS: BP 112/58
[2021-12-21 06:04] LABS: HEMATOCRIT 33.5 % (31.2-41.9); MEAN CORPUSCULAR HEMOGLOBIN 32.6 uug (24.7-32.8); MEAN CORPUSCULAR VOLUME 98.4 fL (75.5-95.3); PLATELET COUNT (AUTO) 356 K/uL (179-408)
[2021-12-21] MEDS: PANTOPRAZOLE SODIUM 40 MG TABLET.DR PO SCH (06:13)
[2021-12-21 08:30] VITALS: BP 146/50
[2021-12-21] MEDS: FUROSEMIDE 40 MG TABLET PO SCH (09:20)
[2021-12-21] MEDS: ASCORBIC ACID 500 MG TABLET PO SCH (09:20)
[2021-12-21] MEDS: CELECOXIB 200 MG CAPSULE PO SCH (09:20)
[2021-12-21] MEDS: POTASSIUM CHLORIDE 20 MEQ TAB.PRT.SR PO SCH (09:20)
[2021-12-21] MEDS: SULFASALAZINE 500 MG PO SCH ×2 (09:21→18:11)
[2021-12-21] MEDS: [UNRECOGNIZED DRUG - OTHER] PO SCH ×2 (09:21→18:11)
[2021-12-21] MEDS: MULTIVIT, IRON, MIN NO. 8, FA TABLET PO SCH (09:21)
[2021-12-21] MEDS: predniSONE 5 MG TABLET PO SCH (09:21)
[2021-12-21] MEDS: PROTEIN SUPPLEMENT (PROSTAT) 30 ML LIQUID PO SCH ×2 (09:21→18:12)
[2021-12-21] MEDS: AMMONIUM LACTATE 12% LOTION 225 GM BOTTLE TP SCH ×2 (09:24→18:31)
[2021-12-21 11:16] VITALS: BP 125/51
[2021-12-21 16:21] VITALS: BP 118/49
[2021-12-21] MEDS: CEFTRIAXONE 2 G in IV DEXTROSE 5% 100 ML IV SCH (18:12)
[2021-12-21] MEDS: METHYLSULFONYLMETHANE PO SCH (18:12)
[2021-12-21] MEDS: GLUCOSAMINE PO SCH (18:12)
[2021-12-21 20:00] VITALS: BP 133/49
[2021-12-21] MEDS: CELECOXIB 100 MG CAPSULE PO SCH (20:28)
[2021-12-21] MEDS: ACETAMINOPHEN 325 MG TABLET PO PRN (20:30)
[2021-12-22 05:06] VITALS: BP 149/56
[2021-12-22] MEDS: ACETAMINOPHEN 325 MG TABLET PO PRN ×2 (05:31→13:26)
[2021-12-22 05:52] LABS: MEAN CORPUSCULAR HEMOGLOBIN 32.3 uug (24.7-32.8); MEAN CORPUSCULAR VOLUME 97.9 fL (75.5-95.3); PLATELET COUNT (AUTO) 331 K/uL (179-408)
[2021-12-22 05:56] LABS: NEUTROPHILS % (MANUAL) 0 % (42-75)
[2021-12-22] MEDS: PANTOPRAZOLE SODIUM 40 MG TABLET.DR PO SCH (06:33)
[2021-12-22 08:08] LABS: POTASSIUM 3.5 mmol/L (3.5-5.1)
[2021-12-22 08:14] LABS: BILIRUBIN,TOTAL 0.3 mg/dL (0.2-1.0); TOTAL PROTEIN, SERUM 7.2 g/dL (6.4-8.2)
[2021-12-22] MEDS: POTASSIUM CHLORIDE 20 MEQ TAB.PRT.SR PO SCH (09:30)
[2021-12-22] MEDS: CELECOXIB 200 MG CAPSULE PO SCH (09:30)
[2021-12-22] MEDS: SULFASALAZINE 500 MG PO SCH ×2 (09:30→17:17)
[2021-12-22] MEDS: [UNRECOGNIZED DRUG - OTHER] PO SCH ×2 (09:30→17:17)
[2021-12-22] MEDS: predniSONE 5 MG TABLET PO SCH (09:30)
[2021-12-22] MEDS: MULTIVIT, IRON, MIN NO. 8, FA TABLET PO SCH (09:30)
[2021-12-22] MEDS: PROTEIN SUPPLEMENT (PROSTAT) 30 ML LIQUID PO SCH ×2 (09:31→17:18)
[2021-12-22] MEDS: ASCORBIC ACID 500 MG TABLET PO SCH (09:31)
[2021-12-22] MEDS: AMMONIUM LACTATE 12% LOTION 225 GM BOTTLE TP SCH ×2 (09:32→17:18)
[2021-12-22] MEDS: FUROSEMIDE 40 MG TABLET PO SCH (09:34)
[2021-12-22 12:07] VITALS: BP 112/56
[2021-12-22 15:47] VITALS: BP 116/52
[2021-12-22] MEDS: GLUCOSAMINE PO SCH (17:19)
[2021-12-22] MEDS: METHYLSULFONYLMETHANE PO SCH (17:19)
[2021-12-22] MEDS: CEFTRIAXONE 2 G in IV DEXTROSE 5% 100 ML IV SCH (17:30)
[2021-12-22 20:00] VITALS: BP 123/48
[2021-12-22] MEDS: CELECOXIB 100 MG CAPSULE PO SCH (21:58)
[2021-12-23 04:00] VITALS: BP 125/56
[2021-12-23 06:31] LABS: CARBON DIOXIDE 34 mmol/L (21-32); CHLORIDE 103 mmol/L (98-107); CREATININE 0.9 mg/dL (0.6-1.3); GLUCOSE 96 mg/dL (74-106); POTASSIUM 3.5 mmol/L (3.5-5.1); UREA NITROGEN, BLOOD 26 mg/dL (7-18)
[2021-12-23 06:33] LABS: HEMATOCRIT 33.6 % (31.2-41.9); MEAN CORPUSCULAR HEMOGLOBIN 32.8 uug (24.7-32.8); MEAN CORPUSCULAR VOLUME 98.6 fL (75.5-95.3); PLATELET COUNT (AUTO) 343 K/uL (179-408)
[2021-12-23 06:37] LABS: ALANINE AMINOTRANSFERASE 21 U/L (14-59); ALKALINE PHOSPHATASE 70 U/L (50-136); ASPARTATE AMINOTRANSFERASE 18 U/L (15-37); BILIRUBIN,TOTAL 0.3 mg/dL (0.2-1.0); TOTAL PROTEIN, SERUM 6.8 g/dL (6.4-8.2)
[2021-12-23] MEDS: PANTOPRAZOLE SODIUM 40 MG TABLET.DR PO SCH (06:39)
[2021-12-23] MEDS ORDERED: CEFT1FRO2 IV (08:37)
[2021-12-23] MEDS: POTASSIUM CHLORIDE 20 MEQ TAB.PRT.SR PO SCH (09:01)
[2021-12-23] MEDS: FUROSEMIDE 40 MG TABLET PO SCH (09:01)
[2021-12-23] MEDS: predniSONE 5 MG TABLET PO SCH (09:01)
[2021-12-23] MEDS: ASCORBIC ACID 500 MG TABLET PO SCH (09:01)
[2021-12-23] MEDS: MULTIVIT, IRON, MIN NO. 8, FA TABLET PO SCH (09:01)
[2021-12-23] MEDS: CELECOXIB 200 MG CAPSULE PO SCH (09:01)
[2021-12-23] MEDS: PROTEIN SUPPLEMENT (PROSTAT) 30 ML LIQUID PO SCH (09:13)
[2021-12-23] MEDS: AMMONIUM LACTATE 12% LOTION 225 GM BOTTLE TP SCH (09:21)
[2021-12-23] MEDS: [UNRECOGNIZED DRUG - OTHER] PO SCH (10:07)
[2021-12-23] MEDS: SULFASALAZINE 500 MG PO SCH (10:07)
[2021-12-23 11:02] VITALS: BP 123/54
[2021-12-23 11:51] LABS: EOSINOPHILS % (MANUAL) 2 % (0-8); LYMPHOCYTES % (MANUAL) 21 % (20-40); MONOCYTES % (MANUAL) 15 % (2-10); NEUTROPHILS % (MANUAL) 60 % (42-75)
[2021-12-23] MEDS: ACETAMINOPHEN 325 MG TABLET PO PRN (15:15)
== END 2021-12-23 16:12 | DRG 853 ==
LOC: ER 14:10 → TELE3 21:50 → MEDSURG3 12-13 07:58
PROVIDERS: ADMIT Student in an Organized Health Care Education/Training Program; ATTEND Internal Medicine
PROC: 05HY33Z Insertion of Infusion Device into Upper Vein, Percutaneous Approach (ICD-10-PCS; 2021-12-11)
PROC: 0T778DZ Dilation of Left Ureter with Intraluminal Device, Via Natural or Artificial Opening Endoscopic (ICD-10-PCS; principal; 2021-12-20)
DX: A41.59 Other Gram-negative sepsis (principal); I21.A1 Myocardial infarction type 2; N17.0 Acute kidney failure with tubular necrosis; E44.0 Moderate protein-calorie malnutrition; N39.0 Urinary tract infection, site not specified; E87.3 Alkalosis; Z68.43 Body mass index [BMI] 50.0-59.9, adult; N13.6 Pyonephrosis; E88.09 Other disorders of plasma-protein metabolism, not elsewhere classified; M06.9 Rheumatoid arthritis, unspecified; Z87.440 Personal history of urinary (tract) infections; Z90.49 Acquired absence of other specified parts of digestive tract; R53.1 Weakness; Z20.822 Contact with and (suspected) exposure to COVID-19; E66.01 Morbid (severe) obesity due to excess calories; Z85.038 Personal history of other malignant neoplasm of large intestine; B96.4 Proteus (mirabilis) (morganii) as the cause of diseases classified elsewhere; Z93.3 Colostomy status; Z92.21 Personal history of antineoplastic chemotherapy
CPT/HCPCS: 36415; 51702; 70030-TC; 71045; 74018; 83605; 83735; 84100; 84443; 84484; 85025; 85730; 87040; 87077; 87086; 93005; 93307; A6209; A6213; A9150; C1758; C2617; G0378; J0330; J0696; J1100; J1650; J2185; J2405; J2543; J3490; J7040; J7512

== ENCOUNTER 2022-10-15 12:32 | Inpatient (IN) | payer MEDICARE, BC ==
[~2022-10-15] VITALS: Ht 165.1 cm; Wt 142.9 kg
[~2022-10-15 12:32] MED LIST changes: -ACET-73 PO; +CEFT1FRO2 IV; +CELE100C PO; +CELE200C PO; -CHOL100034; -FAMO20TA8 PO; -GLUC-199 PO; -HYDR-3974 PO; -IPRA3AMP23 IH; -ONDA4TAB11 PO; +PANT40TA49 PO; -PIPE3.379 IV; +POTA-88 PO; -POTA10CA43 PO; +PROT30LI PO; +SULF500T46 PO; -SULF500T8 PO; -UBID50TA3 PO; -VOLTAREN 1% GEL TOP; -ZINC30TA2 PO
[2022-10-15] MEDS ORDERED: POTA10TA21 PO (13:25)
[2022-10-15] MEDS ORDERED: NITR50CA PO (13:25)
[2022-10-15 13:32] LABS: CALCIUM 9.3 mg/dL (8.5-10.1); CARBON DIOXIDE 30 mmol/L (21-32); CHLORIDE 95 mmol/L (98-107); GLUCOSE 146 mg/dL (74-106); POTASSIUM 3.6 mmol/L (3.5-5.1); SODIUM SERUM 135 mmol/L (136-145); UREA NITROGEN, BLOOD 15 mg/dL (7-18)
[2022-10-15 13:38] LABS: ALANINE AMINOTRANSFERASE 12 U/L (14-59); ALBUMIN 3.3 g/dL (3.4-5.0); ALKALINE PHOSPHATASE 79 U/L (50-136); ASPARTATE AMINOTRANSFERASE 17 U/L (15-37); BILIRUBIN,DIRECT 0.2 mg/dL (0.0-0.2); BILIRUBIN,TOTAL 0.6 mg/dL (0.2-1.0); TOTAL PROTEIN, SERUM 7.8 g/dL (6.4-8.2)
[2022-10-15 13:39] LABS: ACETAMINOPHEN < 2.0 ug/mL (10-30)
[2022-10-15 13:46] LABS: BASOPHILS # (AUTO) 0.1 K/UL (0.0-0.2); BASOPHILS % (AUTO) 1.2 % (0.0-2.0); EOSINOPHILS # (AUTO) 0.3 K/uL (0.0-0.7); HEMATOCRIT 40.3 % (31.2-41.9); LYMPHOCYTES # (AUTO) 0.6 K/uL (0.8-4.8); MEAN CORPUSCULAR HEMOGLOBIN 29.8 uug (24.7-32.8); MEAN CORPUSCULAR HGB CONC 32 g/dL (32.3-35.6); MEAN CORPUSCULAR VOLUME 92.7 fL (75.5-95.3); MONOCYTES # (AUTO) 1.4 K/uL (0.1-1.30); MONOCYTES % (AUTO) 13.3 % (0.0-11.0); NEUTROPHILS # (AUTO) 8.1 K/uL (1.8-8.9); NEUTROPHILS % (AUTO) 76.5 % (38.5-71.5); PLATELET COUNT (AUTO) 253 K/uL (179-408); RED BLOOD CELL COUNT(AUTO) 4.34 MIL/uL (3.63-4.92); RED CELL DISTRIBUTION WIDTH 15.6 % (12.3-17.7); WHITE BLOOD COUNT (AUTO) 10.6 K/uL (3.8-11.8)
[2022-10-15 13:51] LABS: *CLARITY,URINE CLEAR (CLEAR); *COLOR,URINE YELLOW (YELLOW); *KETONES,URINE 1+ (NEGATIVE); *PROTEIN,URINE 1+ (NEGATIVE); *UROBILINOGEN,URINE 0.2 E.U./dl (NORMAL); LEUKOCYTE ESTERASE ,URINE 1+ (NEGATIVE); NITRITE, URINE NEGATIVE (NEGATIVE); UGLUCOSE NEGATIVE (NEGATIVE)
[2022-10-15 13:56] LABS: *BLOOD, URINE TRACE (NEGATIVE)
[2022-10-15 13:57] LABS: *BILIRUBIN,URIN 2+ (NEGATIVE)
[2022-10-15 14:05] LABS: DIFFERENTIAL COMMENT 1
[2022-10-15 14:17] LABS: ETHANOL < 3 MG/DL (0-10)
[2022-10-15 14:23] LABS: *AMPHETAMINE, URINE NEGATIVE (NEGATIVE); *BARBITURATE, URINE NEGATIVE (NEGATIVE); *BENZODIAZEPINE, URINE NEGATIVE (NEGATIVE); *CANNABINOID, URINE NEGATIVE (NEGATIVE); *COCCAINE, URINE NEGATIVE (NEGATIVE); *OPIATE, URINE NEGATIVE (NEGATIVE); *PHENCYCLIDINE SCREEN,URINE NEGATIVE (NEGATIVE); FENTANYL, URINE NEGATIVE (NEGATIVE)
[2022-10-15 14:30] LABS: NT-PRO BNP 936 pg/mL (0-125)
[2022-10-15] MEDS ORDERED: CEphaleXIN 500 MG CAPSULE PO SCH ×2 (14:30→21:00)
[2022-10-15 14:39] LABS: BACTERIA,URINE FEW /HPF (NONE SEEN); SQUAMOUS EPITHELIAL CELL,UR FEW /HPF (NONE SEEN)
[2022-10-15 14:43] LABS: AMMONIA < 10 umol/L (11-32)
[2022-10-15 14:51] LABS: THYROID STIMULATING HORMONE 1.827 mIU/mL (0.358-3.740)
[2022-10-15] MEDS: MAGNESIUM SULFATE/D5W 100 ML IV SCH ×2 (14:56→16:15)
[2022-10-15 15:02] LABS: MAGNESIUM 1.8 mg/dL (1.8-2.4); PHOSPHOROUS 3.5 mg/dL (2.5-4.9)
[2022-10-15] MEDS ORDERED: ASPIRIN 81 MG TAB.CHEW PO ONE (15:15)
[2022-10-15 17:21] VITALS: BP 169/87; TEMP 98.4; O2SAT 92
[2022-10-15] MEDS ORDERED: NITR100C6 PO (18:00)
[2022-10-15] MEDS ORDERED: POTA15TA11 PO (18:00)
[2022-10-15 20:00] VITALS: BP 131/63; TEMP 98.9; O2SAT 91
[2022-10-15] MEDS ORDERED: MAGNESIUM HYDROXIDE 30 ML LIQUID UDC PO PRN (21:45)
[2022-10-15] MEDS ORDERED: ONDANSETRON 4 MG/2 ML VIAL IV PRN (21:45)
[2022-10-15] MEDS ORDERED: REMEDY ESSENTIAL ZINC PASTE 113 GM TP PRN (21:45)
[2022-10-15] MEDS ORDERED: ACETAMINOPHEN 325 MG TABLET PO PRN (21:45)
[2022-10-15] MEDS ORDERED: ZOLPIDEM 5 MG TABLET PO PRN (21:45)
[2022-10-15] MEDS: ENOXAPARIN SODIUM 40 MG/0.4 ML DISP.SYRIN SQ SCH (22:20)
[2022-10-16] VITALS: BP 154/73; TEMP 97.3; O2SAT 93
[2022-10-16 04:00] VITALS: BP 125/60; TEMP 97.4; O2SAT 96
[2022-10-16] MEDS ORDERED: CEFTRIAXONE 1 G in IV DEXTROSE 5% 50 ML IV SCH (04:00)
[2022-10-16] MEDS ORDERED: CEFTRIAXONE /D5W 50ML IVPB **ER PYXIS IV ONE (04:34)
[2022-10-16 06:42] LABS: BASOPHILS # (AUTO) 0.1 K/UL (0.0-0.2); BASOPHILS % (AUTO) 0.7 % (0.0-2.0); EOSINOPHILS # (AUTO) 0.4 K/uL (0.0-0.7); EOSINOPHILS % (AUTO) 4.5 % (0.0-7.0); HEMATOCRIT 42.1 % (31.2-41.9); HEMOGLOBIN 13.7 g/dL (10.9-14.3); LYMPHOCYTES # (AUTO) 0.8 K/uL (0.8-4.8); LYMPHOCYTES % (AUTO) 8.3 % (20.5-51.5); MEAN CORPUSCULAR HEMOGLOBIN 30.4 uug (24.7-32.8); MEAN CORPUSCULAR HGB CONC 33 g/dL (32.3-35.6); MEAN CORPUSCULAR VOLUME 93.3 fL (75.5-95.3); MONOCYTES # (AUTO) 1.2 K/uL (0.1-1.30); MONOCYTES % (AUTO) 12.6 % (0.0-11.0); NEUTROPHILS # (AUTO) 7.1 K/uL (1.8-8.9); NEUTROPHILS % (AUTO) 73.9 % (38.5-71.5); PLATELET COUNT (AUTO) 218 K/uL (179-408); RED BLOOD CELL COUNT(AUTO) 4.51 MIL/uL (3.63-4.92); RED CELL DISTRIBUTION WIDTH 15.7 % (12.3-17.7); WHITE BLOOD COUNT (AUTO) 9.6 K/uL (3.8-11.8)
[2022-10-16 06:53] LABS: CALCIUM 9.3 mg/dL (8.5-10.1); CARBON DIOXIDE 29 mmol/L (21-32); CHLORIDE 98 mmol/L (98-107); CREATININE 0.9 mg/dL (0.6-1.3); DIFFERENTIAL COMMENT 1; GLUCOSE 103 mg/dL (74-106); MAGNESIUM 2.5 mg/dL (1.8-2.4); POTASSIUM 3.2 mmol/L (3.5-5.1); SODIUM SERUM 136 mmol/L (136-145); UREA NITROGEN, BLOOD 18 mg/dL (7-18)
[2022-10-16] MEDS: POTASSIUM CHLORIDE 50 ML IV SCH ×4 (08:15→10:15)
[2022-10-16 08:37] LABS: THYROID STIMULATING HORMONE 1.103 mIU/mL (0.358-3.740)
[2022-10-16] MEDS: ASCORBIC ACID 500 MG TABLET PO SCH (10:10)
[2022-10-16] MEDS: ASPIRIN 81 MG TAB.CHEW PO SCH (10:10)
[2022-10-16] MEDS: PANTOPRAZOLE SODIUM 40 MG VIAL IV SCH (10:10)
[2022-10-16] MEDS: MULTIVIT, IRON, MIN NO. 8, FA TABLET PO SCH (10:10)
[2022-10-16] MEDS: FUROSEMIDE 40 MG TABLET PO SCH (10:11)
[2022-10-16 10:59] VITALS: BP 118/67; TEMP 98.4; O2SAT 90
[2022-10-16] MEDS ORDERED: POTASSIUM CHLORIDE 20 MEQ TAB.PRT.SR PO ONE (11:30)
[2022-10-16 15:29] VITALS: TEMP 98.2
[2022-10-16] MEDS: PROTEIN SUPPLEMENT (PROSTAT) 30 ML LIQUID PO SCH (18:05)
[2022-10-16 20:00] VITALS: BP 123/62; TEMP 98.3; O2SAT 93
[2022-10-16] MEDS ORDERED: SIMVASTATIN 20 MG TABLET PO SCH (21:00)
[2022-10-16] MEDS: ENOXAPARIN SODIUM 40 MG/0.4 ML DISP.SYRIN SQ SCH (21:49)
[2022-10-17 04:00] VITALS: BP 121/65; TEMP 98; O2SAT 94
[2022-10-17] MEDS ORDERED: CEFTRIAXONE 2 G in IV DEXTROSE 5% 100 ML IV SCH (06:00)
[2022-10-17 07:15] LABS: BASOPHILS # (AUTO) 0.1 K/UL (0.0-0.2); BASOPHILS % (AUTO) 0.8 % (0.0-2.0); EOSINOPHILS # (AUTO) 0.7 K/uL (0.0-0.7); EOSINOPHILS % (AUTO) 6.1 % (0.0-7.0); HEMOGLOBIN 12.3 g/dL (10.9-14.3); LYMPHOCYTES # (AUTO) 1.1 K/uL (0.8-4.8); LYMPHOCYTES % (AUTO) 10.4 % (20.5-51.5); MEAN CORPUSCULAR HEMOGLOBIN 30.8 uug (24.7-32.8); MEAN CORPUSCULAR HGB CONC 33 g/dL (32.3-35.6); MEAN CORPUSCULAR VOLUME 92.6 fL (75.5-95.3); MONOCYTES # (AUTO) 1.5 K/uL (0.1-1.30); MONOCYTES % (AUTO) 13.7 % (0.0-11.0); NEUTROPHILS # (AUTO) 7.5 K/uL (1.8-8.9); PLATELET COUNT (AUTO) 246 K/uL (179-408); RED CELL DISTRIBUTION WIDTH 15.4 % (12.3-17.7); WHITE BLOOD COUNT (AUTO) 10.9 K/uL (3.8-11.8)
[2022-10-17 07:24] LABS: DIFFERENTIAL COMMENT 1
[2022-10-17 07:36] LABS: CALCIUM 8.9 mg/dL (8.5-10.1); CARBON DIOXIDE 30 mmol/L (21-32); CHLORIDE 96 mmol/L (98-107); CREATININE 0.8 mg/dL (0.6-1.3); GLUCOSE 105 mg/dL (74-106); MAGNESIUM 2.1 mg/dL (1.8-2.4); PHOSPHOROUS 3.2 mg/dL (2.5-4.9); POTASSIUM 3.7 mmol/L (3.5-5.1); SODIUM SERUM 133 mmol/L (136-145); UREA NITROGEN, BLOOD 20 mg/dL (7-18)
[2022-10-17] MEDS: ASPIRIN 81 MG TAB.CHEW PO SCH (08:52)
[2022-10-17] MEDS: PROTEIN SUPPLEMENT (PROSTAT) 30 ML LIQUID PO SCH (08:52)
[2022-10-17] MEDS: FUROSEMIDE 40 MG TABLET PO SCH (08:52)
[2022-10-17] MEDS: ASCORBIC ACID 500 MG TABLET PO SCH (08:52)
[2022-10-17] MEDS: MULTIVIT, IRON, MIN NO. 8, FA TABLET PO SCH (08:52)
[2022-10-17] MEDS: PANTOPRAZOLE SODIUM 40 MG VIAL IV SCH (08:52)
[2022-10-17] MEDS ORDERED: FLUOXETINE HCL 10 MG CAPSULE PO SCH (09:00)
[2022-10-17] MEDS ORDERED: risperiDONE 1 MG TABLET PO SCH (09:00)
[2022-10-17 11:29] VITALS: BP 141/60; TEMP 98.9; O2SAT 93
[2022-10-17] MEDS ORDERED: ASPI81TA31 PO (12:15)
[2022-10-17] MEDS ORDERED: FLUO10CA29 PO (12:15)
[2022-10-17] MEDS ORDERED: SIMV-46 PO (12:15)
[2022-10-17] MEDS ORDERED: RISP1TAB7 PO (12:15)
[2022-10-17] MEDS ORDERED: CEPH500T PO (12:16)
[2022-10-18] MEDS ORDERED: PANTOPRAZOLE SODIUM 40 MG TABLET.DR PO SCH (07:00)
== END 2022-10-17 14:40 | DRG 689 ==
LOC: ER 12:32 → TELE3 16:31 → MEDSURG3 10-16 11:29
PROVIDERS: ADMIT Nurse Practitioner Acute Care; ATTEND Nurse Practitioner Acute Care
DX: N39.0 Urinary tract infection, site not specified (principal); G93.41 Metabolic encephalopathy; I21.A1 Myocardial infarction type 2; Z68.43 Body mass index [BMI] 50.0-59.9, adult; E44.0 Moderate protein-calorie malnutrition; I50.32 Chronic diastolic (congestive) heart failure; D68.59 Other primary thrombophilia; F32.3 Major depressive disorder, single episode, severe with psychotic features; E66.01 Morbid (severe) obesity due to excess calories; G47.33 Obstructive sleep apnea (adult) (pediatric); F29 Unspecified psychosis not due to a substance or known physiological condition; Z74.01 Bed confinement status; I25.2 Old myocardial infarction; J44.9 Chronic obstructive pulmonary disease, unspecified; M06.9 Rheumatoid arthritis, unspecified; E87.6 Hypokalemia; I11.0 Hypertensive heart disease with heart failure; I27.20 Pulmonary hypertension, unspecified; H26.9 Unspecified cataract; F41.9 Anxiety disorder, unspecified; Z87.891 Personal history of nicotine dependence; Z87.442 Personal history of urinary calculi; F44.9 Dissociative and conversion disorder, unspecified; Z90.49 Acquired absence of other specified parts of digestive tract; Z93.3 Colostomy status; Z85.038 Personal history of other malignant neoplasm of large intestine; Z96.642 Presence of left artificial hip joint; Z96.653 Presence of artificial knee joint, bilateral; Z92.21 Personal history of antineoplastic chemotherapy
CPT/HCPCS: 36415; 70450; 71045; 83735; 84100; 84443; 84484; 85025; 93307; A6213; C1758; C9113; G0378; G0480; J0696; J1650; J3475; J3480

== ENCOUNTER 2022-10-17 14:52 | Inpatient (IN) | payer MEDICARE, BC ==
[~2022-10-17] VITALS: Ht 165.1 cm; Wt 138.3 kg
[~2022-10-17 14:52] MED LIST changes: +ASPI81TA31 PO; -CEFT1FRO2 IV; -CELE200C PO; +CEPH500T PO; +FLUO10CA29 PO; +NITR100C6 PO; -POTA-88 PO; +POTA15TA11 PO; -PROT30LI PO; +RISP1TAB7 PO; +SIMV-46 PO
[2022-10-17] MEDS ORDERED: ZOLPIDEM 5 MG TABLET PO PRN (15:45)
[2022-10-17] MEDS ORDERED: LORAZEPAM 1 MG TABLET PO PRN (15:45)
[2022-10-17] MEDS ORDERED: MAG HYDROX/AL HYDROX/SIMETH 30 ML LIQUID UDC PO PRN (15:45)
[2022-10-17] MEDS ORDERED: MAGNESIUM HYDROXIDE 30 ML LIQUID UDC PO PRN (15:45)
[2022-10-17 16:00] VITALS: BP 136/66; TEMP 98.4; O2SAT 92
[2022-10-17] MEDS: SIMVASTATIN 20 MG TABLET PO SCH (20:31)
[2022-10-17 20:33] VITALS: BP 135/54; TEMP 97.8; O2SAT 91
[2022-10-18 04:50] VITALS: BP 154/60; TEMP 98.4; O2SAT 93
[2022-10-18] MEDS: PANTOPRAZOLE SODIUM 40 MG TABLET.DR PO SCH (06:35)
[2022-10-18 07:30] VITALS: BP 140/67; TEMP 98.1; O2SAT 97
[2022-10-18 08:23] LABS: ALANINE AMINOTRANSFERASE 12 U/L (14-59); ALBUMIN 3.1 g/dL (3.4-5.0); ALKALINE PHOSPHATASE 74 U/L (50-136); ASPARTATE AMINOTRANSFERASE 15 U/L (15-37); BILIRUBIN,TOTAL 0.5 mg/dL (0.2-1.0); CALCIUM 9.1 mg/dL (8.5-10.1); CARBON DIOXIDE 27 mmol/L (21-32); CHLORIDE 94 mmol/L (98-107); CREATININE 0.8 mg/dL (0.6-1.3); GLUCOSE 102 mg/dL (74-106); POTASSIUM 3.3 mmol/L (3.5-5.1); SODIUM SERUM 132 mmol/L (136-145); TOTAL PROTEIN, SERUM 7.4 g/dL (6.4-8.2); UREA NITROGEN, BLOOD 19 mg/dL (7-18)
[2022-10-18] MEDS: ASPIRIN 81 MG TAB.CHEW PO SCH (08:46)
[2022-10-18] MEDS: predniSONE 5 MG TABLET PO SCH (08:46)
[2022-10-18] MEDS: FUROSEMIDE 40 MG TABLET PO SCH (08:46)
[2022-10-18] MEDS: ASCORBIC ACID 500 MG TABLET PO SCH (08:46)
[2022-10-18] MEDS: MULTIVITAMINS,THERAPEUTIC TABLET PO SCH (08:46)
[2022-10-18] MEDS: CELECOXIB 100 MG CAPSULE PO SCH ×2 (08:52→17:20)
[2022-10-18] MEDS ORDERED: risperiDONE 1 MG TABLET PO SCH (09:00)
[2022-10-18] MEDS ORDERED: Medication Not On Formulary EA (Cephalexin Monohydrate (Cephalexin) 1 TAB) PO SCH (09:00)
[2022-10-18] MEDS ORDERED: FLUOXETINE HCL 10 MG CAPSULE PO SCH (09:00)
[2022-10-18] MEDS: CEphaleXIN 500 MG CAPSULE PO SCH ×2 (09:41→21:05)
[2022-10-18] MEDS ORDERED: POTASSIUM CHLORIDE 20 MEQ TAB.PRT.SR PO ONE ×2 (11:30→12:00)
[2022-10-18 11:46] VITALS: BP 153/71; TEMP 98.9; O2SAT 92
[2022-10-18 16:16] VITALS: BP 136/66; TEMP 98.6; O2SAT 93
[2022-10-18 20:33] VITALS: BP 143/68; TEMP 98.3; O2SAT 90
[2022-10-18] MEDS: SIMVASTATIN 20 MG TABLET PO SCH (21:05)
[2022-10-18] MEDS: risperiDONE 0.5 MG TABLET PO SCH (21:05)
[2022-10-19] MEDS: PANTOPRAZOLE SODIUM 40 MG TABLET.DR PO SCH (06:37)
[2022-10-19] MEDS: MULTIVITAMINS,THERAPEUTIC TABLET PO SCH (08:37)
[2022-10-19] MEDS: predniSONE 5 MG TABLET PO SCH (08:37)
[2022-10-19] MEDS: FUROSEMIDE 40 MG TABLET PO SCH (08:38)
[2022-10-19] MEDS: CEphaleXIN 500 MG CAPSULE PO SCH ×2 (08:38→20:24)
[2022-10-19] MEDS: ASPIRIN 81 MG TAB.CHEW PO SCH (08:38)
[2022-10-19] MEDS: FLUOXETINE HCL 20 MG CAPSULE PO SCH (08:38)
[2022-10-19] MEDS: ASCORBIC ACID 500 MG TABLET PO SCH (08:38)
[2022-10-19] MEDS: CELECOXIB 100 MG CAPSULE PO SCH ×2 (08:41→17:36)
[2022-10-19] MEDS: risperiDONE 0.5 MG TABLET PO SCH ×2 (08:41→20:24)
[2022-10-19 16:00] VITALS: BP 169/62; TEMP 98.6; O2SAT 92
[2022-10-19 20:00] VITALS: BP 127/72; TEMP 98.1; O2SAT 91
[2022-10-19] MEDS: SIMVASTATIN 20 MG TABLET PO SCH (20:24)
[2022-10-20 04:11] VITALS: BP 106/79; TEMP 97.8; O2SAT 91
[2022-10-20] MEDS: PANTOPRAZOLE SODIUM 40 MG TABLET.DR PO SCH (06:21)
[2022-10-20 07:53] VITALS: BP 144/62; TEMP 98.5; O2SAT 94
[2022-10-20] MEDS: CEphaleXIN 500 MG CAPSULE PO SCH ×2 (08:14→20:02)
[2022-10-20] MEDS: ASPIRIN 81 MG TAB.CHEW PO SCH (08:14)
[2022-10-20] MEDS: CELECOXIB 100 MG CAPSULE PO SCH ×2 (08:14→16:19)
[2022-10-20] MEDS: FLUOXETINE HCL 20 MG CAPSULE PO SCH (08:14)
[2022-10-20] MEDS: MULTIVITAMINS,THERAPEUTIC TABLET PO SCH (08:14)
[2022-10-20] MEDS: FUROSEMIDE 40 MG TABLET PO SCH (08:14)
[2022-10-20] MEDS: ASCORBIC ACID 500 MG TABLET PO SCH (08:15)
[2022-10-20] MEDS: predniSONE 5 MG TABLET PO SCH (08:15)
[2022-10-20] MEDS: risperiDONE 0.5 MG TABLET PO SCH ×3 (08:15→16:19)
[2022-10-20] MEDS ORDERED: risperiDONE 0.5 MG TABLET PO SCH (09:00)
[2022-10-20 11:37] VITALS: BP 153/59; TEMP 98.6; O2SAT 93
[2022-10-20 16:00] VITALS: BP 129/55; TEMP 98; O2SAT 92
[2022-10-20 20:00] VITALS: BP 129/50; TEMP 98.7; O2SAT 94
[2022-10-20] MEDS: SIMVASTATIN 20 MG TABLET PO SCH (20:02)
[2022-10-21 04:00] VITALS: BP 145/45; TEMP 98.5; O2SAT 93
[2022-10-21] MEDS: PANTOPRAZOLE SODIUM 40 MG TABLET.DR PO SCH (06:25)
[2022-10-21] MEDS: CEphaleXIN 500 MG CAPSULE PO SCH ×2 (08:15→21:39)
[2022-10-21] MEDS: MULTIVITAMINS,THERAPEUTIC TABLET PO SCH (08:15)
[2022-10-21] MEDS: CELECOXIB 100 MG CAPSULE PO SCH ×2 (08:15→16:25)
[2022-10-21] MEDS: FLUOXETINE HCL 20 MG CAPSULE PO SCH (08:15)
[2022-10-21] MEDS: predniSONE 5 MG TABLET PO SCH (08:16)
[2022-10-21] MEDS: ASPIRIN 81 MG TAB.CHEW PO SCH (08:16)
[2022-10-21] MEDS: FUROSEMIDE 40 MG TABLET PO SCH (08:16)
[2022-10-21] MEDS: ASCORBIC ACID 500 MG TABLET PO SCH (08:16)
[2022-10-21] MEDS: risperiDONE 1 MG TABLET PO SCH ×2 (08:28→16:25)
[2022-10-21] MEDS ORDERED: risperiDONE 0.5 MG TABLET PO SCH (09:00)
[2022-10-21 12:00] VITALS: BP 104/53; TEMP 97.1; O2SAT 96
[2022-10-21 16:11] VITALS: BP 134/65; TEMP 98.7; O2SAT 97
[2022-10-21 20:24] VITALS: BP 130/52; TEMP 98.5; O2SAT 95
[2022-10-21] MEDS: SIMVASTATIN 20 MG TABLET PO SCH (21:39)
[2022-10-22 04:38] VITALS: BP 147/50; TEMP 98.6; O2SAT 96
[2022-10-22] MEDS: PANTOPRAZOLE SODIUM 40 MG TABLET.DR PO SCH (06:00)
[2022-10-22] MEDS: MULTIVITAMINS,THERAPEUTIC TABLET PO SCH (08:15)
[2022-10-22] MEDS: FLUOXETINE HCL 20 MG CAPSULE PO SCH (08:15)
[2022-10-22] MEDS: CEphaleXIN 500 MG CAPSULE PO SCH ×2 (08:15→20:03)
[2022-10-22] MEDS: FUROSEMIDE 40 MG TABLET PO SCH (08:15)
[2022-10-22] MEDS: ASCORBIC ACID 500 MG TABLET PO SCH (08:15)
[2022-10-22] MEDS: predniSONE 5 MG TABLET PO SCH (08:15)
[2022-10-22] MEDS: ASPIRIN 81 MG TAB.CHEW PO SCH (08:15)
[2022-10-22] MEDS: CELECOXIB 100 MG CAPSULE PO SCH ×2 (08:15→16:21)
[2022-10-22] MEDS: risperiDONE 1 MG TABLET PO SCH ×2 (08:15→16:21)
[2022-10-22 11:22] VITALS: BP 129/52; TEMP 97.8; O2SAT 97
[2022-10-22 16:22] VITALS: BP 120/48; TEMP 98; O2SAT 96
[2022-10-22] MEDS: SIMVASTATIN 20 MG TABLET PO SCH (20:03)
[2022-10-22 20:32] VITALS: BP 110/51; TEMP 98.9; O2SAT 96
[2022-10-23 04:40] VITALS: BP 158/54; TEMP 98.1; O2SAT 95
[2022-10-23] MEDS: PANTOPRAZOLE SODIUM 40 MG TABLET.DR PO SCH (06:02)
[2022-10-23 06:45] LABS: CALCIUM 9.1 mg/dL (8.5-10.1); CARBON DIOXIDE 34 mmol/L (21-32); CHLORIDE 96 mmol/L (98-107); CREATININE 0.8 mg/dL (0.6-1.3); GLUCOSE 101 mg/dL (74-106); SODIUM SERUM 135 mmol/L (136-145); UREA NITROGEN, BLOOD 22 mg/dL (7-18)
[2022-10-23 07:06] LABS: BASOPHILS # (AUTO) 0.1 K/UL (0.0-0.2); BASOPHILS % (AUTO) 0.7 % (0.0-2.0); DIFFERENTIAL COMMENT 0; EOSINOPHILS # (AUTO) 0.5 K/uL (0.0-0.7); EOSINOPHILS % (AUTO) 4.6 % (0.0-7.0); HEMATOCRIT 36.6 % (31.2-41.9); HEMOGLOBIN 12.3 g/dL (10.9-14.3); LYMPHOCYTES # (AUTO) 1.2 K/uL (0.8-4.8); MEAN CORPUSCULAR HEMOGLOBIN 30.6 uug (24.7-32.8); MEAN CORPUSCULAR HGB CONC 34 g/dL (32.3-35.6); MEAN CORPUSCULAR VOLUME 91.3 fL (75.5-95.3); MONOCYTES # (AUTO) 1.2 K/uL (0.1-1.30); MONOCYTES % (AUTO) 11.7 % (0.0-11.0); PLATELET COUNT (AUTO) 222 K/uL (179-408); RED BLOOD CELL COUNT(AUTO) 4.01 MIL/uL (3.63-4.92); RED CELL DISTRIBUTION WIDTH 15.2 % (12.3-17.7); WHITE BLOOD COUNT (AUTO) 9.9 K/uL (3.8-11.8)
[2022-10-23 07:18] LABS: POTASSIUM 2.7 mmol/L (3.5-5.1)
[2022-10-23 08:00] VITALS: BP 121/49; TEMP 98; O2SAT 97
[2022-10-23] MEDS ORDERED: POTASSIUM CHLORIDE 20 MEQ TAB.PRT.SR PO ONE ×2 (09:00→14:00)
[2022-10-23] MEDS: FUROSEMIDE 40 MG TABLET PO SCH (09:15)
[2022-10-23] MEDS: ASPIRIN 81 MG TAB.CHEW PO SCH (09:15)
[2022-10-23] MEDS: CEphaleXIN 500 MG CAPSULE PO SCH ×2 (09:15→22:23)
[2022-10-23] MEDS: ASCORBIC ACID 500 MG TABLET PO SCH (09:15)
[2022-10-23] MEDS: MULTIVITAMINS,THERAPEUTIC TABLET PO SCH (09:15)
[2022-10-23] MEDS: predniSONE 5 MG TABLET PO SCH (09:15)
[2022-10-23] MEDS: FLUOXETINE HCL 20 MG CAPSULE PO SCH (09:16)
[2022-10-23] MEDS: CELECOXIB 100 MG CAPSULE PO SCH ×2 (09:16→17:31)
[2022-10-23] MEDS: risperiDONE 1 MG TABLET PO SCH ×3 (09:19→17:31)
[2022-10-23 11:47] VITALS: BP 109/51; TEMP 98; O2SAT 96
[2022-10-23 15:57] VITALS: BP 142/55; TEMP 97.8; O2SAT 95
[2022-10-23 21:51] VITALS: BP 108/51; TEMP 97.9; O2SAT 95
[2022-10-23] MEDS: SIMVASTATIN 20 MG TABLET PO SCH (22:23)
[2022-10-24 04:58] VITALS: BP 108/51; TEMP 97.9; O2SAT 97
[2022-10-24] MEDS: PANTOPRAZOLE SODIUM 40 MG TABLET.DR PO SCH (06:13)
[2022-10-24] MEDS: ASCORBIC ACID 500 MG TABLET PO SCH (08:17)
[2022-10-24] MEDS: ASPIRIN 81 MG TAB.CHEW PO SCH (08:17)
[2022-10-24] MEDS: FUROSEMIDE 40 MG TABLET PO SCH (08:17)
[2022-10-24] MEDS: FLUOXETINE HCL 20 MG CAPSULE PO SCH (08:17)
[2022-10-24] MEDS: risperiDONE 1 MG TABLET PO SCH ×3 (08:17→16:26)
[2022-10-24] MEDS: MULTIVITAMINS,THERAPEUTIC TABLET PO SCH (08:17)
[2022-10-24] MEDS: predniSONE 5 MG TABLET PO SCH (08:17)
[2022-10-24] MEDS: CEphaleXIN 500 MG CAPSULE PO SCH ×2 (08:17→20:35)
[2022-10-24] MEDS: CELECOXIB 100 MG CAPSULE PO SCH ×2 (08:17→16:26)
[2022-10-24] MEDS: ENSURE ENLIVE (VAN) 240 ML LIQUID PO SCH (08:29)
[2022-10-24 11:10] VITALS: BP 104/80; TEMP 98.4; O2SAT 97
[2022-10-24 15:07] VITALS: BP 130/56; TEMP 98.2; O2SAT 94
[2022-10-24 20:00] VITALS: BP 113/55; TEMP 99; O2SAT 95
[2022-10-24] MEDS: SIMVASTATIN 20 MG TABLET PO SCH (20:35)
[2022-10-24] MEDS: ACETAMINOPHEN 325 MG TABLET PO PRN (20:35)
[2022-10-25 05:58] VITALS: BP 127/60; TEMP 97.4; O2SAT 95
[2022-10-25] MEDS: PANTOPRAZOLE SODIUM 40 MG TABLET.DR PO SCH (06:23)
[2022-10-25 07:45] VITALS: BP 124/42; TEMP 98.4; O2SAT 94
[2022-10-25] MEDS: ASPIRIN 81 MG TAB.CHEW PO SCH (08:42)
[2022-10-25] MEDS: CELECOXIB 100 MG CAPSULE PO SCH ×3 (08:43→20:22)
[2022-10-25] MEDS: predniSONE 5 MG TABLET PO SCH (08:43)
[2022-10-25] MEDS: FLUOXETINE HCL 20 MG CAPSULE PO SCH (08:43)
[2022-10-25] MEDS: FUROSEMIDE 40 MG TABLET PO SCH (08:43)
[2022-10-25] MEDS: ASCORBIC ACID 500 MG TABLET PO SCH (08:44)
[2022-10-25] MEDS: risperiDONE 1 MG TABLET PO SCH ×3 (08:44→16:40)
[2022-10-25] MEDS: MULTIVITAMINS,THERAPEUTIC TABLET PO SCH (08:44)
[2022-10-25] MEDS: ENSURE ENLIVE (VAN) 240 ML LIQUID PO SCH (08:50)
[2022-10-25] MEDS ORDERED: REMEDY ESSENTIAL ZINC PASTE 113 GM TOP PRN (11:15)
[2022-10-25 15:58] VITALS: BP 118/47; TEMP 98.5; O2SAT 95
[2022-10-25] MEDS ORDERED: CELECOXIB 100 MG CAPSULE PO SCH (17:00)
[2022-10-25 19:51] VITALS: BP 115/48; TEMP 97.4; O2SAT 95
[2022-10-25] MEDS: SIMVASTATIN 20 MG TABLET PO SCH (20:22)
[2022-10-26 04:39] VITALS: BP 112/48; TEMP 98.4; O2SAT 96
[2022-10-26] MEDS: PANTOPRAZOLE SODIUM 40 MG TABLET.DR PO SCH (06:02)
[2022-10-26] MEDS: ACETAMINOPHEN 325 MG TABLET PO PRN (06:02)
[2022-10-26] MEDS: FUROSEMIDE 40 MG TABLET PO SCH (08:57)
[2022-10-26] MEDS: FLUOXETINE HCL 20 MG CAPSULE PO SCH (08:57)
[2022-10-26] MEDS: ASPIRIN 81 MG TAB.CHEW PO SCH (08:57)
[2022-10-26] MEDS: CELECOXIB 100 MG CAPSULE PO SCH ×2 (08:57→22:20)
[2022-10-26] MEDS: predniSONE 5 MG TABLET PO SCH (08:57)
[2022-10-26] MEDS: MULTIVITAMINS,THERAPEUTIC TABLET PO SCH (08:57)
[2022-10-26] MEDS: ASCORBIC ACID 500 MG TABLET PO SCH (08:57)
[2022-10-26] MEDS: risperiDONE 1 MG TABLET PO SCH ×3 (08:57→17:25)
[2022-10-26] MEDS: ENSURE ENLIVE (VAN) 240 ML LIQUID PO SCH (08:58)
[2022-10-26 12:00] VITALS: BP 106/49; TEMP 98.1; O2SAT 96
[2022-10-26 15:54] VITALS: BP 124/50; TEMP 97.9; O2SAT 96
[2022-10-26 20:00] VITALS: BP 118/59; TEMP 97.8; O2SAT 97
[2022-10-26] MEDS: SIMVASTATIN 20 MG TABLET PO SCH (22:20)
[2022-10-27] MEDS: PANTOPRAZOLE SODIUM 40 MG TABLET.DR PO SCH (06:13)
[2022-10-27 07:21] LABS: BASOPHILS # (AUTO) 0.1 K/UL (0.0-0.2); BASOPHILS % (AUTO) 0.5 % (0.0-2.0); EOSINOPHILS # (AUTO) 0.5 K/uL (0.0-0.7); EOSINOPHILS % (AUTO) 4.6 % (0.0-7.0); HEMATOCRIT 35.5 % (31.2-41.9); HEMOGLOBIN 11.6 g/dL (10.9-14.3); LYMPHOCYTES # (AUTO) 1.2 K/uL (0.8-4.8); LYMPHOCYTES % (AUTO) 10.4 % (20.5-51.5); MEAN CORPUSCULAR HEMOGLOBIN 30.2 uug (24.7-32.8); MEAN CORPUSCULAR HGB CONC 33 g/dL (32.3-35.6); MEAN CORPUSCULAR VOLUME 92.3 fL (75.5-95.3); MONOCYTES # (AUTO) 1.1 K/uL (0.1-1.30); MONOCYTES % (AUTO) 9.9 % (0.0-11.0); NEUTROPHILS # (AUTO) 8.3 K/uL (1.8-8.9); NEUTROPHILS % (AUTO) 74.6 % (38.5-71.5); PLATELET COUNT (AUTO) 188 K/uL (179-408); RED BLOOD CELL COUNT(AUTO) 3.85 MIL/uL (3.63-4.92); RED CELL DISTRIBUTION WIDTH 14.9 % (12.3-17.7); WHITE BLOOD COUNT (AUTO) 11.1 K/uL (3.8-11.8)
[2022-10-27 07:32] LABS: CALCIUM 9.4 mg/dL (8.5-10.1); CARBON DIOXIDE 32 mmol/L (21-32); CHLORIDE 98 mmol/L (98-107); CREATININE 0.8 mg/dL (0.6-1.3); GLUCOSE 94 mg/dL (74-106); SODIUM SERUM 138 mmol/L (136-145); UREA NITROGEN, BLOOD 16 mg/dL (7-18)
[2022-10-27 07:33] LABS: DIFFERENTIAL COMMENT 1
[2022-10-27 08:25] LABS: POTASSIUM 2.8 mmol/L (3.5-5.1)
[2022-10-27] MEDS ORDERED: POTASSIUM CHLORIDE 20 MEQ TAB.PRT.SR PO ONE ×2 (09:00→14:30)
[2022-10-27] MEDS: risperiDONE 1 MG TABLET PO SCH ×3 (09:07→17:01)
[2022-10-27] MEDS: CELECOXIB 100 MG CAPSULE PO SCH ×2 (09:07→20:23)
[2022-10-27] MEDS: ASPIRIN 81 MG TAB.CHEW PO SCH (09:08)
[2022-10-27] MEDS: predniSONE 5 MG TABLET PO SCH (09:08)
[2022-10-27] MEDS: MULTIVITAMINS,THERAPEUTIC TABLET PO SCH (09:08)
[2022-10-27] MEDS: ASCORBIC ACID 500 MG TABLET PO SCH (09:09)
[2022-10-27] MEDS: FUROSEMIDE 40 MG TABLET PO SCH (09:13)
[2022-10-27] MEDS: ENSURE ENLIVE (VAN) 240 ML LIQUID PO SCH (09:13)
[2022-10-27] MEDS: FLUOXETINE HCL 10 MG CAPSULE PO SCH (10:37)
[2022-10-27 11:47] VITALS: BP 106/45; TEMP 98.5; O2SAT 95
[2022-10-27] MEDS: LITHIUM CARBONATE 300 MG CAPSULE PO SCH ×2 (12:40→21:00)
[2022-10-27 15:42] VITALS: BP 91/38; TEMP 98.5; O2SAT 95
[2022-10-27] MEDS: CLOTRIMAZOLE 1% CREAM 30 GM TUBE TOP SCH (17:02)
[2022-10-27] MEDS: SIMVASTATIN 20 MG TABLET PO SCH (20:23)
[2022-10-27 21:20] VITALS: BP 107/53; TEMP 98.2; O2SAT 99
[2022-10-28 05:19] VITALS: BP 140/68; TEMP 98.2; O2SAT 99
[2022-10-28] MEDS: PANTOPRAZOLE SODIUM 40 MG TABLET.DR PO SCH (06:14)
[2022-10-28 06:25] LABS: CALCIUM 8.8 mg/dL (8.5-10.1); CARBON DIOXIDE 33 mmol/L (21-32); CHLORIDE 99 mmol/L (98-107); CREATININE 0.9 mg/dL (0.6-1.3); GLUCOSE 110 mg/dL (74-106); POTASSIUM 3.4 mmol/L (3.5-5.1); SODIUM SERUM 138 mmol/L (136-145); UREA NITROGEN, BLOOD 16 mg/dL (7-18)
[2022-10-28] MEDS: CELECOXIB 100 MG CAPSULE PO SCH ×2 (08:38→21:31)
[2022-10-28] MEDS: LITHIUM CARBONATE 300 MG CAPSULE PO SCH ×2 (08:39→20:56)
[2022-10-28] MEDS: MULTIVITAMINS,THERAPEUTIC TABLET PO SCH (08:39)
[2022-10-28] MEDS: FUROSEMIDE 40 MG TABLET PO SCH (08:39)
[2022-10-28] MEDS: ASPIRIN 81 MG TAB.CHEW PO SCH (08:39)
[2022-10-28] MEDS: FLUOXETINE HCL 10 MG CAPSULE PO SCH (08:39)
[2022-10-28] MEDS: predniSONE 5 MG TABLET PO SCH (08:39)
[2022-10-28] MEDS: ASCORBIC ACID 500 MG TABLET PO SCH (08:39)
[2022-10-28] MEDS: CLOTRIMAZOLE 1% CREAM 30 GM TUBE TOP SCH ×2 (08:39→17:58)
[2022-10-28] MEDS: ENSURE ENLIVE (VAN) 240 ML LIQUID PO SCH (08:39)
[2022-10-28] MEDS: risperiDONE 1 MG TABLET PO SCH ×3 (08:39→17:58)
[2022-10-28] MEDS ORDERED: POTASSIUM CHLORIDE 20 MEQ TAB.PRT.SR PO ONE (09:15)
[2022-10-28 11:54] VITALS: BP 107/40; TEMP 98.7; O2SAT 98
[2022-10-28 15:52] VITALS: BP 105/36; TEMP 98.4; O2SAT 97
[2022-10-28 20:20] VITALS: BP 101/42; TEMP 98.4; O2SAT 96
[2022-10-28] MEDS: SIMVASTATIN 20 MG TABLET PO SCH (20:55)
[2022-10-28] MEDS ORDERED: CELECOXIB 100 MG CAPSULE ONE (21:13)
[2022-10-29 04:18] VITALS: BP 146/56; TEMP 98; O2SAT 96
[2022-10-29] MEDS: PANTOPRAZOLE SODIUM 40 MG TABLET.DR PO SCH (05:58)
[2022-10-29] MEDS: predniSONE 5 MG TABLET PO SCH (09:40)
[2022-10-29] MEDS: MULTIVITAMINS,THERAPEUTIC TABLET PO SCH (09:40)
[2022-10-29] MEDS: LITHIUM CARBONATE 300 MG CAPSULE PO SCH ×2 (09:40→21:11)
[2022-10-29] MEDS: risperiDONE 1 MG TABLET PO SCH ×3 (09:40→17:52)
[2022-10-29] MEDS: FUROSEMIDE 40 MG TABLET PO SCH (09:40)
[2022-10-29] MEDS: ASCORBIC ACID 500 MG TABLET PO SCH (09:40)
[2022-10-29] MEDS: ASPIRIN 81 MG TAB.CHEW PO SCH (09:40)
[2022-10-29] MEDS: FLUOXETINE HCL 10 MG CAPSULE PO SCH (09:41)
[2022-10-29] MEDS: CLOTRIMAZOLE 1% CREAM 30 GM TUBE TOP SCH ×2 (09:43→17:52)
[2022-10-29] MEDS: ENSURE ENLIVE (VAN) 240 ML LIQUID PO SCH (09:43)
[2022-10-29] MEDS: SULFASALAZINE 500 MG TABLET PO SCH ×2 (10:54→17:51)
[2022-10-29] MEDS: CELECOXIB 100 MG CAPSULE PO SCH ×2 (10:54→21:11)
[2022-10-29 11:52] VITALS: BP 149/52; TEMP 98.5; O2SAT 95
[2022-10-29 20:00] VITALS: BP 121/56; TEMP 98.6; O2SAT 94
[2022-10-29] MEDS: SIMVASTATIN 20 MG TABLET PO SCH (21:11)
[2022-10-30 05:27] VITALS: BP 110/65; TEMP 98.7; O2SAT 98
[2022-10-30] MEDS: PANTOPRAZOLE SODIUM 40 MG TABLET.DR PO SCH (06:18)
[2022-10-30] MEDS: risperiDONE 1 MG TABLET PO SCH ×3 (08:14→16:55)
[2022-10-30] MEDS: ASPIRIN 81 MG TAB.CHEW PO SCH (08:14)
[2022-10-30] MEDS: SULFASALAZINE 500 MG TABLET PO SCH ×2 (08:14→16:55)
[2022-10-30] MEDS: ASCORBIC ACID 500 MG TABLET PO SCH (08:14)
[2022-10-30] MEDS: LITHIUM CARBONATE 300 MG CAPSULE PO SCH ×2 (08:14→20:58)
[2022-10-30] MEDS: MULTIVITAMINS,THERAPEUTIC TABLET PO SCH (08:14)
[2022-10-30] MEDS: FLUOXETINE HCL 10 MG CAPSULE PO SCH (08:14)
[2022-10-30] MEDS: predniSONE 5 MG TABLET PO SCH (08:14)
[2022-10-30] MEDS: CLOTRIMAZOLE 1% CREAM 30 GM TUBE TOP SCH ×2 (08:14→16:55)
[2022-10-30] MEDS: CELECOXIB 100 MG CAPSULE PO SCH ×2 (08:15→20:58)
[2022-10-30] MEDS: ENSURE ENLIVE (VAN) 240 ML LIQUID PO SCH (08:37)
[2022-10-30] MEDS: FUROSEMIDE 40 MG TABLET PO SCH (08:40)
[2022-10-30 12:00] VITALS: BP 132/56; TEMP 98; O2SAT 94
[2022-10-30 16:00] VITALS: BP 140/53; TEMP 97.9; O2SAT 94
[2022-10-30 20:00] VITALS: BP 124/49; TEMP 99.3; O2SAT 95
[2022-10-30] MEDS: SIMVASTATIN 20 MG TABLET PO SCH (20:58)
[2022-10-31 04:00] VITALS: BP 117/40; TEMP 98.3; O2SAT 94
[2022-10-31] MEDS: PANTOPRAZOLE SODIUM 40 MG TABLET.DR PO SCH (06:09)
[2022-10-31] MEDS: risperiDONE 1 MG TABLET PO SCH ×3 (08:08→16:21)
[2022-10-31] MEDS: ASPIRIN 81 MG TAB.CHEW PO SCH (08:08)
[2022-10-31] MEDS: predniSONE 5 MG TABLET PO SCH (08:08)
[2022-10-31] MEDS: SULFASALAZINE 500 MG TABLET PO SCH ×2 (08:08→16:22)
[2022-10-31] MEDS: LITHIUM CARBONATE 300 MG CAPSULE PO SCH ×2 (08:08→20:43)
[2022-10-31] MEDS: FLUOXETINE HCL 10 MG CAPSULE PO SCH (08:08)
[2022-10-31] MEDS: CELECOXIB 100 MG CAPSULE PO SCH ×2 (08:09→20:47)
[2022-10-31] MEDS: ENSURE ENLIVE (VAN) 240 ML LIQUID PO SCH (08:09)
[2022-10-31] MEDS: MULTIVITAMINS,THERAPEUTIC TABLET PO SCH (08:09)
[2022-10-31] MEDS: ASCORBIC ACID 500 MG TABLET PO SCH (08:09)
[2022-10-31] MEDS: FUROSEMIDE 40 MG TABLET PO SCH (08:09)
[2022-10-31] MEDS: CLOTRIMAZOLE 1% CREAM 30 GM TUBE TOP SCH ×2 (08:25→16:22)
[2022-10-31 11:54] VITALS: BP 124/46; TEMP 97.9; O2SAT 96
[2022-10-31 16:15] VITALS: BP 129/48; TEMP 97.8; O2SAT 96
[2022-10-31 20:00] VITALS: BP 111/47; TEMP 98.5; O2SAT 93
[2022-10-31] MEDS: SIMVASTATIN 20 MG TABLET PO SCH (20:43)
[2022-11-01 04:50] VITALS: BP 113/51; TEMP 98.6; O2SAT 95
[2022-11-01] MEDS: PANTOPRAZOLE SODIUM 40 MG TABLET.DR PO SCH (06:29)
[2022-11-01] MEDS: CELECOXIB 100 MG CAPSULE PO SCH ×2 (08:14→20:20)
[2022-11-01] MEDS: ASPIRIN 81 MG TAB.CHEW PO SCH (08:14)
[2022-11-01] MEDS: FUROSEMIDE 40 MG TABLET PO SCH (08:14)
[2022-11-01] MEDS: LITHIUM CARBONATE 300 MG CAPSULE PO SCH ×2 (08:14→20:20)
[2022-11-01] MEDS: ASCORBIC ACID 500 MG TABLET PO SCH (08:14)
[2022-11-01] MEDS: predniSONE 5 MG TABLET PO SCH (08:14)
[2022-11-01] MEDS: MULTIVITAMINS,THERAPEUTIC TABLET PO SCH (08:14)
[2022-11-01] MEDS: FLUOXETINE HCL 10 MG CAPSULE PO SCH (08:14)
[2022-11-01] MEDS: SULFASALAZINE 500 MG TABLET PO SCH ×2 (08:14→16:16)
[2022-11-01] MEDS: risperiDONE 1 MG TABLET PO SCH ×3 (08:14→16:16)
[2022-11-01] MEDS: ENSURE ENLIVE (VAN) 240 ML LIQUID PO SCH (08:25)
[2022-11-01] MEDS: CLOTRIMAZOLE 1% CREAM 30 GM TUBE TOP SCH ×2 (08:26→16:16)
[2022-11-01 12:04] VITALS: BP 107/51; TEMP 99.5; O2SAT 96
[2022-11-01] MEDS: SIMVASTATIN 20 MG TABLET PO SCH (20:21)
[2022-11-01 23:01] VITALS: BP 111/53; TEMP 98.2; O2SAT 99
[2022-11-02 03:58] VITALS: BP 108/46; TEMP 98.2; O2SAT 99
[2022-11-02] MEDS: PANTOPRAZOLE SODIUM 40 MG TABLET.DR PO SCH (06:16)
[2022-11-02 06:48] LABS: BASOPHILS % (AUTO) 0.3 % (0.0-2.0); EOSINOPHILS # (AUTO) 0.5 K/uL (0.0-0.7); EOSINOPHILS % (AUTO) 3.6 % (0.0-7.0); HEMATOCRIT 35.8 % (31.2-41.9); HEMOGLOBIN 11.7 g/dL (10.9-14.3); LYMPHOCYTES # (AUTO) 1.1 K/uL (0.8-4.8); LYMPHOCYTES % (AUTO) 8.4 % (20.5-51.5); MEAN CORPUSCULAR HEMOGLOBIN 30.1 uug (24.7-32.8); MEAN CORPUSCULAR HGB CONC 33 g/dL (32.3-35.6); MEAN CORPUSCULAR VOLUME 92.1 fL (75.5-95.3); MONOCYTES # (AUTO) 1.1 K/uL (0.1-1.30); MONOCYTES % (AUTO) 8.2 % (0.0-11.0); NEUTROPHILS # (AUTO) 10.5 K/uL (1.8-8.9); NEUTROPHILS % (AUTO) 79.5 % (38.5-71.5); PLATELET COUNT (AUTO) 173 K/uL (179-408); RED BLOOD CELL COUNT(AUTO) 3.89 MIL/uL (3.63-4.92); RED CELL DISTRIBUTION WIDTH 14.8 % (12.3-17.7); WHITE BLOOD COUNT (AUTO) 13.2 K/uL (3.8-11.8)
[2022-11-02 06:55] LABS: DIFFERENTIAL COMMENT 1
[2022-11-02 07:21] LABS: CALCIUM 8.7 mg/dL (8.5-10.1); CREATININE 1.1 mg/dL (0.6-1.3); MAGNESIUM 2.1 mg/dL (1.8-2.4); PHOSPHOROUS 3.5 mg/dL (2.5-4.9); POTASSIUM 2.9 mmol/L (3.5-5.1)
[2022-11-02] MEDS: ASPIRIN 81 MG TAB.CHEW PO SCH (08:03)
[2022-11-02] MEDS: LITHIUM CARBONATE 300 MG CAPSULE PO SCH (08:03)
[2022-11-02] MEDS: MULTIVITAMINS,THERAPEUTIC TABLET PO SCH (08:03)
[2022-11-02] MEDS: ASCORBIC ACID 500 MG TABLET PO SCH ×2 (08:03→08:08)
[2022-11-02] MEDS: predniSONE 5 MG TABLET PO SCH (08:03)
[2022-11-02] MEDS: CELECOXIB 100 MG CAPSULE PO SCH ×2 (08:03→20:20)
[2022-11-02] MEDS: FUROSEMIDE 40 MG TABLET PO SCH (08:03)
[2022-11-02] MEDS: SULFASALAZINE 500 MG TABLET PO SCH ×2 (08:03→16:13)
[2022-11-02] MEDS: risperiDONE 1 MG TABLET PO SCH ×3 (08:03→16:13)
[2022-11-02] MEDS: FLUOXETINE HCL 10 MG CAPSULE PO SCH (08:03)
[2022-11-02] MEDS: ENSURE ENLIVE (VAN) 240 ML LIQUID PO SCH (08:16)
[2022-11-02] MEDS: CLOTRIMAZOLE 1% CREAM 30 GM TUBE TOP SCH ×2 (08:17→16:14)
[2022-11-02] MEDS: POTASSIUM CHLORIDE 10 MEQ TAB.PRT.SR PO SCH ×2 (09:38→12:21)
[2022-11-02 11:30] VITALS: BP 129/51; TEMP 99.3; O2SAT 94
[2022-11-02 16:00] VITALS: BP 111/50; TEMP 98.8; O2SAT 98
[2022-11-02] MEDS: SIMVASTATIN 20 MG TABLET PO SCH (20:20)
[2022-11-02] MEDS: LITHIUM CARBONATE 150 MG CAPSULE PO SCH (20:21)
[2022-11-02 22:07] VITALS: BP 138/78; TEMP 98; O2SAT 99
[2022-11-03 04:55] VITALS: BP 129/57; TEMP 98.6; O2SAT 98
[2022-11-03] MEDS: PANTOPRAZOLE SODIUM 40 MG TABLET.DR PO SCH (06:35)
[2022-11-03] MEDS: FLUOXETINE HCL 10 MG CAPSULE PO SCH (08:24)
[2022-11-03] MEDS: risperiDONE 1 MG TABLET PO SCH ×3 (08:24→18:24)
[2022-11-03] MEDS: FUROSEMIDE 40 MG TABLET PO SCH (08:24)
[2022-11-03] MEDS: CELECOXIB 100 MG CAPSULE PO SCH ×2 (08:24→20:34)
[2022-11-03] MEDS: MULTIVITAMINS,THERAPEUTIC TABLET PO SCH (08:24)
[2022-11-03] MEDS: predniSONE 5 MG TABLET PO SCH (08:24)
[2022-11-03] MEDS: ASPIRIN 81 MG TAB.CHEW PO SCH (08:24)
[2022-11-03] MEDS: ASCORBIC ACID 500 MG TABLET PO SCH (08:25)
[2022-11-03] MEDS: SULFASALAZINE 500 MG TABLET PO SCH ×2 (08:46→18:25)
[2022-11-03] MEDS: ENSURE ENLIVE (VAN) 240 ML LIQUID PO SCH (08:48)
[2022-11-03] MEDS: CLOTRIMAZOLE 1% CREAM 30 GM TUBE TOP SCH ×2 (08:50→18:28)
[2022-11-03] MEDS: LITHIUM CARBONATE 150 MG CAPSULE PO SCH ×2 (08:52→20:35)
[2022-11-03 12:00] VITALS: BP 122/47; TEMP 97.8; O2SAT 95
[2022-11-03 16:18] VITALS: BP 112/48; TEMP 98.4; O2SAT 95
[2022-11-03] MEDS: ACETAMINOPHEN 325 MG TABLET PO PRN (20:34)
[2022-11-03] MEDS: SIMVASTATIN 20 MG TABLET PO SCH (20:34)
[2022-11-03 23:45] VITALS: TEMP 98.4
[2022-11-04 04:55] VITALS: BP 134/56; TEMP 98.1; O2SAT 92
[2022-11-04] MEDS: PANTOPRAZOLE SODIUM 40 MG TABLET.DR PO SCH (06:15)
[2022-11-04 07:49] VITALS: BP 137/60; TEMP 98.1; O2SAT 96
[2022-11-04] MEDS: FUROSEMIDE 40 MG TABLET PO SCH (09:01)
[2022-11-04] MEDS: MULTIVITAMINS,THERAPEUTIC TABLET PO SCH (09:01)
[2022-11-04] MEDS: LITHIUM CARBONATE 150 MG CAPSULE PO SCH (09:01)
[2022-11-04] MEDS: risperiDONE 1 MG TABLET PO SCH (09:01)
[2022-11-04] MEDS: ASCORBIC ACID 500 MG TABLET PO SCH (09:02)
[2022-11-04] MEDS: predniSONE 5 MG TABLET PO SCH (09:02)
[2022-11-04] MEDS: CELECOXIB 100 MG CAPSULE PO SCH (09:03)
[2022-11-04] MEDS: ASPIRIN 81 MG TAB.CHEW PO SCH (09:03)
[2022-11-04] MEDS: SULFASALAZINE 500 MG TABLET PO SCH (09:03)
[2022-11-04] MEDS: FLUOXETINE HCL 10 MG CAPSULE PO SCH (09:03)
[2022-11-04] MEDS: ENSURE ENLIVE (VAN) 240 ML LIQUID PO SCH (09:10)
[2022-11-04] MEDS: CLOTRIMAZOLE 1% CREAM 30 GM TUBE TOP SCH (09:10)
== END 2022-11-04 12:25 | DRG 885 ==
LOC: GPSOV3 14:55
PROVIDERS: ADMIT Psychiatry & Neurology Psychosomatic Medicine; ATTEND Nurse Practitioner Acute Care
DX: F33.3 Major depressive disorder, recurrent, severe with psychotic symptoms (principal); I50.32 Chronic diastolic (congestive) heart failure; Z68.43 Body mass index [BMI] 50.0-59.9, adult; D68.69 Other thrombophilia; E44.0 Moderate protein-calorie malnutrition; N39.0 Urinary tract infection, site not specified; F03.918 Unspecified dementia, unspecified severity, with other behavioral disturbance; F03.93 Unspecified dementia, unspecified severity, with mood disturbance; I11.0 Hypertensive heart disease with heart failure; E66.01 Morbid (severe) obesity due to excess calories; E78.5 Hyperlipidemia, unspecified; E87.6 Hypokalemia; E88.09 Other disorders of plasma-protein metabolism, not elsewhere classified; I25.10 Atherosclerotic heart disease of native coronary artery without angina pectoris; H26.9 Unspecified cataract; J44.9 Chronic obstructive pulmonary disease, unspecified; M06.9 Rheumatoid arthritis, unspecified; Z74.01 Bed confinement status; Z85.038 Personal history of other malignant neoplasm of large intestine; F44.9 Dissociative and conversion disorder, unspecified; F29 Unspecified psychosis not due to a substance or known physiological condition; F41.9 Anxiety disorder, unspecified; F43.20 Adjustment disorder, unspecified; G47.33 Obstructive sleep apnea (adult) (pediatric); I25.2 Old myocardial infarction; Z90.49 Acquired absence of other specified parts of digestive tract; Z93.3 Colostomy status
CPT/HCPCS: 36415; 70030-TC; 80178; 83735; 84100; 85025; A4663; A6209; A6213; J7512